=== PATIENT | male | born 1935 | race Caucasian/White ===

== ENCOUNTER 2018-05-01 12:06 | Outpatient (CLI) | payer MEDICARE, BC | END 2018-05-01 13:00 | disposition home or self-care (01) | LOC: PTMAIN 12:06 | PROVIDERS: ATTEND Otolaryngology | DX: K21.9 Gastro-esophageal reflux disease without esophagitis (principal) | CPT/HCPCS: 31579 ==

== ENCOUNTER → 2020-06-17 | Outpatient (CLI) | payer MEDICARE, BC ==
--- NOTE | 2020-06-17 15:32 | CT ---
EXAMINATION TYPE: CT chest wo con DATE OF EXAM: 06/17/2020 COMPARISON: Chest x-ray 06/08/2020 HISTORY: SOB CT DLP: 498 mGycm. Automated Exposure Control for Dose Reduction was Utilized. TECHNIQUE: CT scan of the thorax is performed without IV contrast. FINDINGS: LUNGS: There is extreme volume loss on the right with the right perihilar consolidation extending to the pleural space and small effusion with basilar consolidation. Pleural-based thickening is also not ed on the left. There is no pneumothorax. Subpleural nodularity in the right upper lobe measuring 5 m m or less.. MEDIASTINUM: Lack of IV contrast is noted to limit evaluation for mediastinal and especially hilar ad enopathy. There are no definitive greater than 1 cm hilar or mediastinal lymph nodes. Atherosclerotic change aorta. Calcification of the aortic valve and coronary artery calcification with cardiomegaly noted.. OTHER: Hypertrophic and degenerative change of the spine. There is a gallstone. There is a fusion of a midthoracic vertebral segments which may be congenital. Sternotomy changes are noted. Renal cortica l thinning suggest chronic medical renal disease. There is gynecomastia. IMPRESSION: 1. There is significant volume loss on the right with midline shift from right to left correlate clin ically for any previous surgical intervention. Subpleural nodularity measuring 5 mm or less is too sm all to characterize. There is abnormal soft tissue attenuation extending from the right hilum into th e right pleural space with areas of consolidation and small effusion which may be postoperative and p ostinflammatory rather than neoplastic, correlate clinically. 2. Cholelithiasis. 3. Cardiomegaly with severe coronary artery calcification
--- NOTE | 2020-06-18 09:36 | ECHOF ---
Referral Reason:R06.02 MEASUREMENTS -------- HEIGHT: 170.2 cm WEIGHT: 73.5 kg BP: 125/63 RVIDd: 3.3 cm (< 3.3) IVSd: 1.6 cm (0.6 - 1.1) LVIDd: 3.9 cm (3.9 - 5.3) LVPWd: 1.5 cm (0.6 - 1.1) IVSs: 1.6 cm LVIDs: 3.0 cm LVPWs: 1.9 cm LA Diam: 3.4 cm (2.7 - 3.8) Ao Diam: 2.5 cm (2.0 - 3.7) AV Cusp: 1.4 cm (1.5 - 2.6) MV EXCURSION: 7.289 mm (> 18.000) MV EF SLOPE: 29 mm/s (70 - 150) EPSS: 2.5 cm MV E Pool: 1.09 m/s MV DecT: 235 ms MV A Pool: 1.21 m/s MV E/A Ratio: 0.90 AV maxP.55 mmHg AV meanP.77 mmHg RAP: 5.00 mmHg RVSP: 18.87 mmHg FINDINGS -------- Sinus rhythm. This was a technically difficult study with suboptimal views. The left ventricular size is normal. There is moderate concentric left ventricular hypertrophy. O verall left ventricular systolic function is normal with, an EF between 60 - 65 %. The right ventricle is mildly enlarged. Normal LA size by volume 22+/-6 ml/m2. The right atrium is normal in size. 3 ml of Lumason was utilized for enhancement of images. Interatrial and interventricular septum intact. Peak/mean gradient across the Aortic Valve is 20.55mmHg / 13.77mmHg. Normally functioning bioprosth etic valve. Mild mitral annular calcification present. Mild tricuspid regurgitation present. Right ventricular systolic pressure is normal at < 35 mmHg. There is no pulmonic regurgitation present. The aortic root size is normal. Normal inferior vena cava with normal inspiratory collapse consistent with estimated right atrial pre ssure of 5 mmHg. There is no pericardial effusion. CONCLUSIONS -------- 1. Sinus rhythm. 2. This was a technically difficult study with suboptimal views. 3. The left ventricular size is normal. 4. There is moderate concentric left ventricular hypertrophy. 5. Overall left ventricular systolic function is normal with, an EF between 60 - 65 %. 6. The right ventricle is mildly enlarged. 7. 3 ml of Lumason was utilized for enhancement of images. 8. Peak/mean gradient across the Aortic Valve is 20.55mmHg / 13.77mmHg. 9. Normally functioning bioprosthetic valve. 10. Mild mitral annular calcification present. 11. Mild tricuspid regurgitation present. 12. Right ventricular systolic pressure is normal at < 35 mmHg. 13. There is no pulmonic regurgitation present. 14. There is no pericardial effusion. COMMUNICATION ENGINEER: Scarlet Worthy RDCS
== END | disposition home or self-care (01) ==
LOC: RADECHMAIN 14:50
PROVIDERS: ATTEND Internal Medicine
DX: R91.8 Other nonspecific abnormal finding of lung field (principal); M79.89 Other specified soft tissue disorders; I51.7 Cardiomegaly; I25.10 Atherosclerotic heart disease of native coronary artery without angina pectoris
CPT/HCPCS: 71250; C8929; Q9950; 93306

== ENCOUNTER 2021-05-18 14:52 | Observation (INO) | payer MEDICARE, BC ==
[2021-05-18] MEDS ORDERED: ALBUTEROL HFA INHALER INHALATION STA (15:43)
[2021-05-18] MEDS ORDERED: predniSONE 20 MG TAB PO STA (15:43)
[2021-05-18 16:13] LABS: Albumin 3.9 g/dL (3.5-5.0); Calcium 9.2 mg/dL (8.4-10.2); Total Bilirubin 0.5 mg/dL (0.2-1.3); Total Protein 6.6 g/dL (6.3-8.2)
--- NOTE | 2021-05-18 16:21 | XR ---
EXAMINATION TYPE: XR chest 1V portable DATE OF EXAM: 05/18/2021 COMPARISON: CTA chest 06/17/2020 INDICATION: Short of breath TECHNIQUE: Single frontal view of the chest is obtained. FINDINGS: The heart size is enlarged. The pulmonary vasculature is normal. Small to moderate right pleural fluid collection is present. Some thickening along the right pleural margin is not excluded. Findings appear similar to CT findings. Pleural fluid is increased over the i nterval. Sternotomy wires are in the midline. The patient is rotated to the left. Chronic rotator cuff tears a re likely present bilaterally. IMPRESSION: 1. Small to moderate pleural effusion increased from comparison CT.
[2021-05-18 16:38] LABS: HCT 34.1 % (39.0-53.0); HGB 11.1 gm/dL (13.0-17.5); MCH 30.5 pg (25.0-35.0); MCHC 32.6 g/dL (31.0-37.0); MCV 93.7 fL (80.0-100.0); Mean Platelet Volume 8.6; Platelet Count 216 k/uL (150-450); RBC 3.64 m/uL (4.30-5.90); RDW 14.3 % (11.5-15.5)
[2021-05-18] MEDS ORDERED: HEPARIN SODIUM 1,000 UN/ML (10ML VL) IV PRN (17:01)
[2021-05-18] MEDS ORDERED: HEPARIN SODIUM 1,000 UN/ML (10ML VL) IV ONE (17:01)
[2021-05-18] MEDS ORDERED: HEPARIN SOD,PORK IN 0.45% NACL 25,000 UNIT in 0.45% NACL 1 250ML.BAG IV SCH (17:15)
[2021-05-18] MEDS ORDERED: NALOXONE 0.4 MG/ML 1 ML VIAL IV PRN (17:24)
[2021-05-18] MEDS ORDERED: ONDANSETRON 4 MG/2 ML VIAL IVP PRN (17:36)
[2021-05-18] MEDS ORDERED: ACETAMINOPHEN TAB 325 MG TAB PO PRN (17:36)
--- NOTE | 2021-05-18 17:56 | ED ---
SOB HPI - General Chief Complaint: Shortness of Breath Stated Complaint: KORIN Time Seen by Provider: 05/18/21 15:32 Source: patient Mode of arrival: wheelchair Limitations: no limitations - History of Present Illness Initial Comments: Lung cancer status post radiation, COPD, chronic respiratory failure on 1-2 L nasal cannula at home, cardiac stents, heart cath, ND who presents emergency Department complaining of acute onset of shortness of breath at home. Patient states he felt more short of breath at home earlier today without much chest pain but did have some mild chest discomfort. He checked his pulse ox and it was in the high 80%'s. He switches oxygen to his portable machine and he was brought to the emergency department for evaluation. He states that on the way to the hospital he rechecked his pulse ox and it was normal, and 98%. States he felt better and his chest discomfort resolved. He states that he believes his home action tank is malfunctioning us and is making strange noises at home. He called to get the tank evaluated and came to the emergency department to be evaluated. He denies any nausea, vomiting, headache, abdominal pain, blurry vision, weakness. He denies any fevers, chills, cough. He received his COVID 19 vaccination, last dose in January. He has no other acute complaints at this time. He describes his chest discomfort that he experienced earlier as just generalized discomfort that has since resolved. He denies any history of blood clots. He is not on blood thinners. - Related Data Home Medications Medication Instructions Recorded Confirmed Aspirin EC [Ecotrin Low Dose] 81 mg PO DAILY 05/18/21 05/18/21 Diazepam [Valium] 5 mg PO BID PRN 05/18/21 05/18/21 Ferrous Sulfate [Feosol] 325 mg PO DAILY 05/18/21 05/18/21 Fluticasone/Vilanterol [Breo 1 puff INHALATION RT-DAILY 05/18/21 05/18/21 Ellipta 200-25 Mcg INH] Furosemide [Lasix] 40 mg PO Q48H 05/18/21 05/18/21 Magnesium Oxide 400 mg PO BID 05/18/21 05/18/21 Metoprolol Tartrate [Lopressor] 25 mg PO BID 05/18/21 05/18/21 NIFEdipine [NIFEdipine ER] 30 mg PO DAILY 05/18/21 05/18/21 Pantoprazole [Protonix] 40 mg PO DAILY 05/18/21 05/18/21 Potassium Chloride ER [K-Dur 10] 10 meq PO DAILY 05/18/21 05/18/21 Prevagen 1 tab PO DAILY 05/18/21 05/18/21 Tiotropium [place] [Spiriva 1 puff INHALATION RT-BID 05/18/21 05/18/21 Respimat] Allergies Allergy/AdvReac Type Severity Reaction Status Date / Time No Known Allergies Allergy Verified 05/18/21 16:25 Review of Systems ROS Statement: Those systems with pertinent positive or pertinent negative responses have been documented in the HPI. Review of Systems: CONST: Denies fever EYES: Denies blurry vision ENT: Denies nasal congestion C/V: Denies Chest pain RESP: Endorses chronic shortness of breath, slightly worse today. GI: Denies abdominal pain : Denies dysuria SKIN: Denies rash. MSK: Denies joint pain. NEURO: Denies headache ROS Other: All systems not noted in ROS Statement are negative. Past Medical History Past Medical History: Coronary Artery Disease (CAD), COPD, Hypertension, Myocardial Infarction (ND) Additional Past Medical History / Comment(s): covid 12/15/20 History of Any Multi-Drug Resistant Organisms: None Reported Past Surgical History: Back Surgery, Cardiac Valve Replacement, Heart Catheterization, Orthopedic Surgery Additional Past Surgical History / Comment(s): cataracts Past Psychological History: Anxiety Smoking Status: Never smoker Past Alcohol Use History: None Reported Past Drug Use History: None Reported General Exam - General Exam Comments Initial Comments: Constitutional: Blood pressure was 109/56, pulse was 88, respirations were 24, pulse oximetry was 90% on room air, 99% on 4 L nasal cannula, 96% on 1 L nasal cannula, temperature was afebrile. General: Appears in no acute distress. HEAD: Normal with no signs of head trauma. EYES: PERRLA, EOMI, conjunctiva normal, no discharge. ENT: Hearing grossly intact, normal oropharynx. RESPIRATORY: Relatively clear breath sounds bilaterally with very mild and essentially wheezing in the lower lung shaw bilaterally. No increased work of breathing. No rhonchi auscultated. C/V: Regular rate and rhythm. S1 and S2 auscultated, no edema, peripheral pulses 2+ and intact throughout ABD: Abd is soft, nontender, nondistended EXT: Normal range of motion, no obvious deformity SKIN: No rashes or lesions observed on exposed skin. NEURO: Alert and oriented 4. No focal deficits. Limitations: no limitations Course Vital Signs 05/18/21 05/18/21 05/18/21 15:09 15:40 16:44 Temperature 98.9 F Pulse Rate 88 72 Respiratory 24 18 Rate Blood Pressure 109/56 119/66 O2 Sat by Pulse 90 L 97 Oximetry 05/18/21 17:32 Temperature Pulse Rate 75 Respiratory 20 Rate Blood Pressure 118/67 O2 Sat by Pulse 95 Oximetry Procedures - [place] Protocol (Time Out) Nurse: Mamie Castillo Medical Decision Making - Medical Decision Making Based on the patient's presentation and physical exam as well as his past medical history remarkable for cardiopulmonary disease, the decision was made to obtain a cardiopulmonary workup child that is the cause of his hypoxia at home and dyspnea that is since improved. Patient currently is asymptomatic except for mild and actively wheezing. Therefore we will obtain prescribed for studies including troponin, EKG, chest x-ray. Patient will be placed on continuous cardiac monitoring. COVID-19 swab will be obtained. We will treat his mild COPD exacerbation with by mouth prednisone 60 mg 1 time only as well as an albuterol inhaler with spacer. Patient will be continued on his 1 L nasal cannula which is on dose. He was in agreement with this plan. Patient's EKG showed no signs concerning for acute ischemia. Patient's chest x- ray showed no acute cardiopulmonary etiology. Laboratory studies were remarkable for a normocytic anemia with a hemoglobin of 11.1. Patient has an elevated bicarb the setting of chronic respiratory failure at 33. Patient's troponin is elevated to 0.073. This is likely a type II NSTEMI. Reevaluation come patient states he still has no chest pain. He is feeling improved. However I did explain that due to his left wrist studies and concerned regarding the stress on his heart and I would like to admit him to the hospital for cardiology to evaluate him. He was in agreement this plan. I spoke with cardiology on-call, Dr. Hale requested that we admit the patient to the third floor, start patient on heparin for his NSTEMI, and order an echo with serial troponins. I performed all these tasks. I spoke with the patient's PCP, Dr. Hall, who requested that we admit the patient under sounds, Dr. Valderrama, who I also spoke with and agreed to the admission. Patient was therefore admitted in serious condition. - Lab Data Result diagrams: 05/18/21 15:49 05/18/21 15:49 Lab Results 05/18/21 05/18/21 05/18/21 Range/Units 15:49 15:49 15:49 WBC 6.4 (3.8-10.6) k/uL RBC 3.64 L (4.30-5.90) m/uL Hgb 11.1 L (13.0-17.5) gm/dL Hct 34.1 L (39.0-53.0) % MCV 93.7 (80.0-100.0) fL MCH 30.5 (25.0-35.0) pg MCHC 32.6 (31.0-37.0) g/dL RDW 14.3 (11.5-15.5) % Plt Count 216 (150-450) k/uL MPV 8.6 Sodium 139 (137-145) mmol/L Potassium 5.0 (3.5-5.1) mmol/L Chloride 101 (98-107) mmol/L Carbon Dioxide 33 H (22-30) mmol/L Anion Gap 5 mmol/L BUN 38 H (9-20) mg/dL Creatinine 0.91 (0.66-1.25) mg/dL Est GFR (CKD-EPI)AfAm 88 (>60 ml/min/1.73 sqM) Est GFR (CKD-EPI)NonAf 76 (>60 ml/min/1.73 sqM) Glucose 112 H (74-99) mg/dL Calcium 9.2 (8.4-10.2) mg/dL Total Bilirubin 0.5 (0.2-1.3) mg/dL AST 26 (17-59) U/L ALT 14 (4-49) U/L Alkaline Phosphatase 70 (38-126) U/L Troponin I 0.073 H* (0.000-0.034) ng/mL Total Protein 6.6 (6.3-8.2) g/dL Albumin 3.9 (3.5-5.0) g/dL - EKG Data -: EKG Interpreted by Me EKG Comments: 12-lead Electrocardiogram Interpretation Note EKG was reviewed and interpreted by myself. 12-lead ECG performed at 1524 is interpreted by me as revealing normal sinus rhythm at a rate of 77 beats per minute. [place] is normal. [place] interval was 194 ms, QRS duration 70 ms, QTc is 434 ms.. There were no ST or T wave abnormalities to suggest myocardial ischemia or injury. R wave progression across the precordium was satisfactory. By my interpretation this EKG is non-diagnostic for acute ischemia. Disposition Clinical Impression: NSTEMI (non-ST elevated myocardial infarction), COPD exacerbation, Acute and chronic respiratory failure Disposition: ADMITTED IP TO THIS HOSP Condition: Serious Referrals: Jason Hidalgo MD [Primary Care Provider] - 1-2 days Decision to Admit Reason: Admit from EC
[2021-05-18 18:36] LABS: HCT 36.1 % (39.0-53.0); HGB 11.2 gm/dL (13.0-17.5); Hypochromasia Slight; MCH 29.5 pg (25.0-35.0); Mean Platelet Volume 7.2; Platelet Count 244 k/uL (150-450); RBC 3.79 m/uL (4.30-5.90); RDW 14.3 % (11.5-15.5); WBC 6.9 k/uL (3.8-10.6)
[2021-05-18 18:53] LABS: Partial Thromboplastin Time 24.7 sec (22.0-30.0); Prothrombin Time 10.9 sec (9.0-12.0)
[2021-05-18 19:09] LABS: Band Neutrophils % 2 %; Eosinophils # (M) 0.28 k/uL (0-0.7); Lymphocytes # (M) 2.83 k/uL (1.0-4.8); Metamyelocytes # (M) 0.14 k/uL (0); Metamyelocytes % 2 %; Monocytes # (M) 0.62 k/uL (0-1.0); Neutrophils % (M) 42 %; Nucleated Red Blood Cells 0 /100 WBC (0-0); Polychromasia Present; Total Cells Counted 100
[2021-05-18 19:12] LABS: Eosinophils # (M) 0.19 k/uL (0-0.7); Lymphocytes # (M) 3.47 k/uL (1.0-4.8); Metamyelocytes # (M) 0.06 k/uL (0); Metamyelocytes % 1 %; Monocytes # (M) 0.76 k/uL (0-1.0); Neutrophils # (M) 1.83 k/uL (1.3-7.7); Neutrophils % (M) 29 %; Nucleated Red Blood Cells 1 /100 WBC (0-0); Polychromasia Present; Total Cells Counted 100; WBC 6.3 k/uL (3.8-10.6)
[2021-05-18] MEDS: METOPROLOL TARTRATE 25 MG TAB PO SCH (23:21)
--- NOTE | 2021-05-19 00:13 | P.HPIM ---
History of Present Illness H&P Date: 05/18/21 Patient is an 85-year-old male with a PMH of coronary artery disease status post multiple stents, COPD, chronic hypoxic respiratory failure 2 L nasal cannula at home, and hypertension who was brought into the emergency room by his family members due to complaints of shortness of breath and dizziness. The patient is a somewhat poor historian. The patient reports that he was in his usual state of health when he began feeling somewhat short of breath around 5 PM tonight. He also reports experiencing intermittent substernal chest discomfort. He notes that the discomfort was transient, lasting only for a few minutes at a time, sharp in nature, with no alleviating or exacerbating features. In the emergency room, evaluation was remarkable for troponin of 0.073, CO2 33, BUN 38, hemoglobin 11.1. EKG revealed normal sinus rhythm at [address]/T-wave changes noted as reviewed by me. Chest x-ray revealed small to moderate pleural effusion on the right side. The case was discussed by ER physician with cardiology microphone operator who recommended to admit the patient for non-ST elevation PR and start him on heparin infusion. Patient denied fever, cough, chills, headache. He also denied abdominal pain, nausea, vomiting, diarrhea. Denied weakness, numbness, tingling, visual disturbances. Review of systems: Pertinent positives and negatives as discussed in HPI, a complete review of systems was performed and all other systems are negative. Physical examination: General: non toxic, no distress, appears at stated age, normal weight Derm: no unusual rashes/lesions no unusual ecchymoses, warm, dry Head: atraumatic, normocephalic, symmetric Eyes: EOMI, no lid lag, anicteric sclera, pupils equal round reactive to light ENT: Nose and ears atraumatic, no thrush, no pharyngeal erythema Neck: No thyromegaly, no cervical lymphadenopathy, trachea midline, supple Mouth: no lip lesion, mucus membranes moist Cardiovascular: S1S2 reg, no murmur, positive posterior tibial pulse bilateral, no edema, capillary refill less than 2 seconds Lungs: CTA bilateral, no rhonchi, no rales , no accessory muscle use Abdominal: soft, nontender to palpation, no guarding, no appreciable organomega ly, normal bowel sounds Ext: no gross muscle atrophy, muscle strength 5 out of 5 in all 4 extremities grossly, no contractures, Neuro: CN II-XI grossly intact, light touch intact all 4 extremities, finger to nose within normal limits, Psych: Alert, oriented, appropriate affect Assessment/plan Non-ST elevation PR -Continue with heparin, aspirin -Cardiac monitoring -Cardiology consult -Trend troponin Chronic conditions: Hypertension, COPD -Continue with home meds DVT prophylaxis -Heparin infusion The patient is admitted with an anticipated les than 2 midnight stay for evaluation of NSTEMI CODE STATUS: Full Code Discussed with: Patient Anticipated discharge date: in am Anticipated discharge place: Home A total of 40 minutes was spent on the care of this complex patient more than 50% of the time was spent in counseling and care coordination. Past Medical History Past Medical History: Coronary Artery Disease (CAD), COPD, Hypertension, Myocard ial Infarction (PR) Additional Past Medical History / Comment(s): covid 12/15/20 Last Myocardial Infarction Date:: UNSURE History of Any Multi-Drug Resistant Organisms: None Reported Past Surgical History: Back Surgery, Cardiac Valve Replacement, Coronary Bypass/CABG, Heart Catheterization, Orthopedic Surgery Additional Past Surgical History / Comment(s): cataracts Past Psychological History: Anxiety Smoking Status: Never smoker Past Alcohol Use History: None Reported Past Drug Use History: None Reported - Past Family History Mother History Unknown: Yes Medications and Allergies Home Medications Medication Instructions Recorded Confirmed Type Aspirin EC [Ecotrin Low Dose] 81 mg PO DAILY 05/18/21 05/18/21 History Diazepam [Valium] 5 mg PO BID PRN 05/18/21 05/18/21 History Ferrous Sulfate [Feosol] 325 mg PO DAILY 05/18/21 05/18/21 History Fluticasone/Vilanterol [Breo 1 puff INHALATION RT-DAILY 05/18/21 05/18/21 History Ellipta 200-25 Mcg INH] Furosemide [Lasix] 40 mg PO Q48H 05/18/21 05/18/21 History Magnesium Oxide 400 mg PO BID 05/18/21 05/18/21 History Metoprolol Tartrate [Lopressor] 25 mg PO BID 05/18/21 05/18/21 History NIFEdipine [NIFEdipine ER] 30 mg PO DAILY 05/18/21 05/18/21 History Pantoprazole [Protonix] 40 mg PO DAILY 05/18/21 05/18/21 History Potassium Chloride ER [K-Dur 10] 10 meq PO DAILY 05/18/21 05/18/21 History Prevagen 1 tab PO DAILY 05/18/21 05/18/21 History Tiotropium [place] [Spiriva 1 puff INHALATION RT-BID 05/18/21 05/18/21 History Respimat] Allergies Allergy/AdvReac Type Severity Reaction Status Date / Time No Known Allergies Allergy Verified 05/18/21 16:25 Physical Exam Vitals: Vital Signs Temp Pulse Pulse Resp BP BP Pulse Ox 05/18/21 20:00 97.8 F 82 18 122/64 97 05/18/21 19:04 98.2 F 78 16 128/78 96 05/18/21 17:32 75 20 118/67 95 05/18/21 16:44 72 18 119/66 97 05/18/21 15:40 98.9 F 05/18/21 15:09 88 24 109/56 90 L Intake and Output 05/18/21 05/18/21 05/19/21 14:59 22:59 06:59 Other: Voiding Method Urinal Weight 63.049 kg Results CBC & Chem 7: 05/18/21 18:12 05/18/21 15:49 Labs: Abnormal Lab Results - Last 24 Hours (Table) 05/18/21 05/18/21 05/18/21 Range/Units 15:49 15:49 15:49 RBC 3.64 L (4.30-5.90) m/uL Hgb 11.1 L (13.0-17.5) gm/dL Hct 34.1 L (39.0-53.0) % Metamyelocytes # (Man) 0.06 H (0) k/uL Nucleated RBCs 1 H (0-0) /100 WBC APTT (22.0-30.0) sec Carbon Dioxide 33 H (22-30) mmol/L BUN 38 H (9-20) mg/dL Glucose 112 H (74-99) mg/dL Troponin I 0.073 H* (0.000-0.034) ng/mL 05/18/21 05/18/21 Range/Units 18:12 22:24 RBC 3.79 L (4.30-5.90) m/uL Hgb 11.2 L (13.0-17.5) gm/dL Hct 36.1 L (39.0-53.0) % Metamyelocytes # (Man) 0.14 H (0) k/uL Nucleated RBCs (0-0) /100 WBC APTT 39.1 H (22.0-30.0) sec Carbon Dioxide (22-30) mmol/L BUN (9-20) mg/dL Glucose (74-99) mg/dL Troponin I (0.000-0.034) ng/mL Thrombosis Risk Factor Assmnt - Choose All That Apply Any of the Below Risk Factors Present?: Yes Each Factor Represents 1 point: Abnormal pulmonary function (COPD) Each Risk Factor Represents 3 Points: Age 75 years or older Other congenital or acquired thrombophilia - If yes, enter type in comment: No Thrombosis Risk Factor Assessment Total Risk Factor Score: 4 Thrombosis Risk Factor Assessment Level: Moderate Risk
[2021-05-19 04:22] VITALS: RESP 18
[2021-05-19 06:05] LABS: HCT 35.7 % (39.0-53.0); HGB 11.5 gm/dL (13.0-17.5); MCH 30.5 pg (25.0-35.0); MCHC 32.3 g/dL (31.0-37.0); MCV 94.2 fL (80.0-100.0); Mean Platelet Volume 7.7; Platelet Count 218 k/uL (150-450); RBC 3.79 m/uL (4.30-5.90); WBC 4.9 k/uL (3.8-10.6)
[2021-05-19 06:11] LABS: Partial Thromboplastin Time 32.3 sec (22.0-30.0); Prothrombin Time 10.5 sec (9.0-12.0)
[2021-05-19] MEDS: IPRATROPIUM 0.5 MG/2.5 ML NEBU INHALATION SCH ×3 (07:40→15:18)
[2021-05-19 08:18] LABS: Albumin 3.9 g/dL (3.5-5.0); Calcium 9.1 mg/dL (8.4-10.2); Potassium 5.5 mmol/L (3.5-5.1); Total Bilirubin 0.4 mg/dL (0.2-1.3); Total Protein 6.7 g/dL (6.3-8.2)
[2021-05-19] MEDS ORDERED: RX INFO: IV CONTRAST WAS GIVEN 1 EACH MISC MISCELLANE PRN (08:22)
[2021-05-19] MEDS ORDERED: POTASSIUM CHLORIDE ER 10 MEQ TAB.ER.PRT PO SCH (09:00)
[2021-05-19] MEDS ORDERED: ATORVASTATIN 40 MG TAB PO SCH (09:00)
[2021-05-19] MEDS ORDERED: ASPIRIN 81 MG PO SCH (09:00)
[2021-05-19] MEDS ORDERED: NIFEdipine XL 30 MG TAB.ER.24 PO SCH (09:00)
[2021-05-19] MEDS ORDERED: predniSONE 20 MG TAB PO SCH (09:00)
[2021-05-19] MEDS ORDERED: HEPARIN SODIUM,PORCINE/PF 5,000 UNIT/0.5 ML SYRINGE SQ SCH (09:15)
[2021-05-19] MEDS ORDERED: SODIUM POLYSTYRENE SULFONATE 15 GM/60 ML BOTTLE PO ONE (09:15)
[2021-05-19] MEDS ORDERED: SODIUM CHLORIDE 0.9% 1,000 ML IV SCH (09:15)
[2021-05-19] MEDS: METOPROLOL TARTRATE 25 MG TAB PO SCH (09:43)
[2021-05-19 10:09] LABS: Basophils # (M) 0.05 k/uL (0-0.2); Myelocytes # (M) 0.05 k/uL (0)
[2021-05-19 10:10] LABS: Blast Cells # (M) 0.93 k/uL (0); Nucleated Red Blood Cells 0 /100 WBC (0-0)
[2021-05-19 10:11] LABS: Anisocytosis (M) Present; Poikilocytosis (M) Present
--- NOTE | 2021-05-19 11:55 | CT ---
EXAMINATION TYPE: CT chest w con DATE OF EXAM: 05/19/2021 COMPARISON: 06/17/2020 HISTORY: 85-year-old male Lung CA follow up TECHNIQUE: Contiguous axial scanning of the chest after the administration of 100 mL of Isovue 300. Coronal/sagittal reconstructions performed. CT DLP: 233.3mGycm. Automatic exposure control utilized for a dose reduction. FINDINGS: Heart is borderline enlarged without pericardial effusion. Median sternotomy wires. Prosthetic aortic valve. Post-CABG changes. Ectatic ascending aorta at 3.9 cm. Mild atherosclerotic arch calcifications with very direct takeoff of the left vertebral artery directly from the aortic arch. Large caliber to the main right and left pulmonary arteries measuring 2.8 and 2.6 cm, respectively, s uggesting underlying pulmonary hypertension. Stable scattered nonenlarged mediastinal lymph nodes measuring up to 8 mm. We demonstrated volume loss within the right hemithorax with cardia mediastinal shift towards the rig ht. Extensive nodular pleural thickening throughout the right hemithorax is relatively similar, exten ding from the right hilum to the right mid lung measuring up to 3.2 cm thick, axial image 25. An adjacent posterior right midlung pulmonary nodule at this level now measures 7 mm versus 4 mm, pre viously, axial image 25 and can be reassessed at follow-up. Masslike opacity at the posterior right base measures 5.6 cm, not significantly changed from prior ex am, axial image 39 but there is more soft tissue fullness along the anterior medial margin of the [place]a city. Stable small right effusion. Extensive areas of volume loss and consolidation persist throughout the right lung with distortion an d interstitial change. [place] left basilar atelectasis and/or fibrosis at on the left. Mild to moderate bilateral gynecomastia. Marked diffuse fold thickening throughout the stomach is similar. Cortical defect posterior upper michelle e left kidney suggests sequela of prior vascular or infectious insult. Bones: Moderate degenerative disc disease throughout with accentuated midthoracic kyphosis. IMPRESSION: 1. Relatively similar exam with diffuse nodular pleural thickening and volume loss throughout the rig ht hemithorax and small right effusion. Areas of consolidation, distortion, and volume loss are relat ively similar, except as follows: 2. A 7 mm posterior right midlung pulmonary nodule is slightly larger versus 4 mm, previously. 3. Masslike opacity posterior right base at 5.6 cm. While overall size is similar, there is increasin g soft tissue fullness along the anterior medial margin of the opacity. 4. Both of these areas should be reassessed at follow-up. 5. Marked diffuse wall thickening throughout the stomach. Correlate for gastritis.
--- NOTE | 2021-05-19 12:06 | ECHOF ---
Referral Reason:NSTEMI MEASUREMENTS -------- HEIGHT: 172.7 cm WEIGHT: 64.4 kg BP: 120/67 RVIDd: 3.6 cm (< 3.3) IVSd: 1.9 cm (0.6 - 1.1) LVIDd: 3.7 cm (3.9 - 5.3) LVPWd: 1.6 cm (0.6 - 1.1) IVSs: 2.3 cm LVIDs: 3.0 cm LVPWs: 1.9 cm LA Diam: 3.7 cm (2.7 - 3.8) LAESV Index (A-L): 27.23 ml/m Ao Diam: 3.5 cm (2.0 - 3.7) MV EXCURSION: 13.015 mm (> 18.000) MV EF SLOPE: 38 mm/s (70 - 150) EPSS: 0.9 cm MV E Pool: 1.26 m/s MV DecT: 233 ms MV A Pool: 1.21 m/s MV E/A Ratio: 1.03 AV maxP.88 mmHg AV meanP.06 mmHg RAP: 5.00 mmHg RVSP: 25.10 mmHg FINDINGS -------- Sinus rhythm. This was a technically adequate study. The left ventricular size is normal. There is severe concentric left ventricular hypertrophy. Ove rall left ventricular systolic function is normal with, an EF between 60 - 65 %. The right ventricle is mildly enlarged. Normal LA size by volume 22+/-6 ml/m2. The right atrium is normal in size. Interatrial and interventricular septum intact. Peak/mean gradient across the Aortic Valve is 14.88mmHg / 7.06mmHg. Normally functioning bioprosthe tic valve. The mitral valve leaflets are mildly thickened. Moderate mitral annular calcification present. Th ere is trace to mild mitral regurgitation. Mild tricuspid regurgitation present. Right ventricular systolic pressure is normal at < 35 mmHg. Trace/mild (physiologic) pulmonic regurgitation. The aortic root size is normal. Normal inferior vena cava with normal inspiratory collapse consistent with estimated right atrial pre ssure of 5 mmHg. There is no pericardial effusion. CONCLUSIONS -------- 1. The left ventricular size is normal. 2. There is severe concentric left ventricular hypertrophy. 3. Overall left ventricular systolic function is normal with, an EF between 60 - 65 %. 4. The right ventricle is mildly enlarged. 5. Peak/mean gradient across the Aortic Valve is 14.88mmHg / 7.06mmHg. 6. Normally functioning bioprosthetic valve. 7. The mitral valve leaflets are mildly thickened. 8. Moderate mitral annular calcification present. 9. There is trace to mild mitral regurgitation. 10. Mild tricuspid regurgitation present. 11. Trace/mild (physiologic) pulmonic regurgitation. 12. There is no pericardial effusion. SPLICING TECHNICIAN: Scarlet Worthy RDCS
--- NOTE | 2021-05-19 12:19 | P.CRDCN ---
History of Present Illness History of present illness: HISTORY OF PRESENTING ILLNESS This is a pleasant 85-year-old male past medical history significant for COPD, coronary artery disease and aortic stenosis s/p CABG and aortic valve replacement about 5 years ago at [facility]. He states he did have COVID- 19 late last year. He follows with Dr. Cline last seen in 05/2020 but didnt follow up. He is not quite sure of the details of his medical history. Poor historian. We have been asked to see in consultation for elevated troponin. Petey hubbard presents emergency department with worsening shortness of breath. He describes it as exertional. He also states he wakes up in the middle night short of breath. It has progressively been getting worse over the past few days and he states his children were concerned and wanted him to go to the hospital. He did check his pulse ox and it was in the high 80s. He also wears oxygen at home, he states his tank is making strange noises at home and possibly malfucntioining. He denies chest pain, palpitations, lightheadedness, dizziness, nausea, diaphoresis or abdominal pain. Denies fevers or chills. Denies syncope or pre- syncope. Denies history of Diabetes or stroke. Denies tobacco use or alcohol use. Patient states that for his CABG he was initially in [place], had a cardiac catheterization and bypass surgery was recommended. Patient states that he wanted to get the surgery done in [place] so he is referred to her cardiothoracic surgeon at [facility]. He also states he did have physicians overseeing his care at [facility], however he does not remember the names of these physicians. When he saw Dr. Cline in 05/2020 and echocardiogram and stress test was recommended. Patient underwent echocardiogram 06/17/2020 which revealed an EF of 60-65%, mild tricuspid regurgitation, normal functioning bioprosthetic valve. DIAGNOSTICS EKG reveals sinus rhythm, heart rate 77, no significant ST-T wave abnormalities. No prior EKG Telemetry tracings indicate sinus mechanism, no ectopy or arrhythmia noted Chest xray small to moderate pleural effusion increased from comparison CT, sternotomy wires are in the midline Laboratory reviewed, troponin trend 0.07, 0.06, 0.06, sodium 141, potassium 5.5, BUN 35, serum creatinine 1.05, proBNP 2650, COVID-19 negative REVIEW OF SYSTEMS At the time of my exam: CONSTITUTIONAL: Denies fever or chills. CARDIOVASCULAR: +shortness of breath, +PND Denies chest pain, PND or palpitations. RESPIRATORY: Denies cough. GASTROINTESTINAL: Denies abdominal pain, diarrhea, constipation, nausea or vomiting. MUSCULOSKELETAL: Denies myalgias. NEUROLOGIC: Denies numbness, tingling, headacbe or weakness. ENDOCRINE: Denies fatigue, weight change, polydipsia or polyurina. GENITOURINARY: Denies burning, hematuria or urgency with micturation. HEMATOLOGIC: Denies history of anemia or bleeding. PHYSICAL EXAMINATION Blood pressure 136/64 heart rate 72 afebrile and maintaining oxygen saturation 90% on 2 L nasal cannula CONSTITUTIONAL: No apparent distress. HEENT: Head is normocephalic. Pupils are equal, round. Sclerae anicteric. Mucous membranes of the mouth are moist. No JVD. No carotid bruit. CHEST EXAMINATION: Lungs are diminished in the bases to auscultation. No chest wall tenderness is noted on palpation or with deep breathing. HEART EXAMINATION: Regular rate and rhythm. S1, S2 heard. ABDOMEN: Soft, nontender. Positive bowel sounds. EXTREMITIES: 2+ peripheral pulses, no lower extremity edema and no calf tenderness. SKIN: intact NEUROLOGIC EXAMINATION: Patient is awake, alert and oriented x3. Poor historian ASSESSMENT Elevated troponin not indicative of acute coronary syndrome, no evidence of ischemia noted on EKG. Most likely supply and demand mismatch Coronary Artery Disease s/p CABG (unknown details) History of aortic stenosis s/p aortic valve replacement (unknown details) COPD Hypertension PLAN ProBNP ordered- elevated at 2650 2D echocardiogram results indicate EF of 60-65%, RV is mildly enlarged, normally functioning bioprosthetic valve, trace to mild mitral regurgitation, mild tricuspid regurgitation, no pericardial effusion. Stop heparin drip Continue aspirin, statin, metoprolol tartrate Continue home nifedipine From cardiology perspective, no further changes or testing at this time. We will sign off at this time. Please reach out with any further questions or concerns. Follow up with Dr. Cline on discharge Thank you kindly for this consultation. Nurse Practitioner note has been reviewed, I agree with a documented findings and plan of care. Patient was seen and examined. Past Medical History Past Medical History: Coronary Artery Disease (CAD), COPD, Hypertension, Myocardial Infarction ([place]) Additional Past Medical History / Comment(s): covid 12/15/20 Last Myocardial Infarction Date:: UNSURE History of Any Multi-Drug Resistant Organisms: None Reported Past Surgical History: Back Surgery, Cardiac Valve Replacement, Coronary Bypass/CABG, Heart Catheterization, Orthopedic Surgery Additional Past Surgical History / Comment(s): cataracts Past Psychological History: Anxiety Smoking Status: Never smoker Past Alcohol Use History: None Reported Past Drug Use History: None Reported - Past Family History Mother History Unknown: Yes Medications and Allergies Home Medications Medication Instructions Recorded Confirmed Type Aspirin EC [Ecotrin Low Dose] 81 mg PO DAILY 05/18/21 05/18/21 History Diazepam [Valium] 5 mg PO BID PRN 05/18/21 05/18/21 History Ferrous Sulfate [Feosol] 325 mg PO DAILY 05/18/21 05/18/21 History Fluticasone/Vilanterol [Breo 1 puff INHALATION RT-DAILY 05/18/21 05/18/21 History Ellipta 200-25 Mcg INH] Furosemide [Lasix] 40 mg PO Q48H 05/18/21 05/18/21 History Magnesium Oxide 400 mg PO BID 05/18/21 05/18/21 History Metoprolol Tartrate [Lopressor] 25 mg PO BID 05/18/21 05/18/21 History NIFEdipine [NIFEdipine ER] 30 mg PO DAILY 05/18/21 05/18/21 History Pantoprazole [Protonix] 40 mg PO DAILY 05/18/21 05/18/21 History Potassium Chloride ER [K-Dur 10] 10 meq PO DAILY 05/18/21 05/18/21 History Prevagen 1 tab PO DAILY 05/18/21 05/18/21 History Tiotropium Republic [Spiriva 1 puff INHALATION RT-BID 05/18/21 05/18/21 History Respimat] Allergies Allergy/AdvReac Type Severity Reaction Status Date / Time No Known Allergies Allergy Verified 05/18/21 16:25 Physical Exam Vitals: Vital Signs Temp Pulse Pulse Resp BP BP Pulse Ox 05/19/21 07:48 67 05/19/21 07:40 64 05/19/21 04:00 97.6 F 80 18 120/67 97 05/19/21 01:02 75 17 05/19/21 00:00 98.0 F 75 17 131/76 98 05/18/21 20:00 97.8 F 82 18 122/64 97 05/18/21 19:04 98.2 F 78 16 128/78 96 05/18/21 17:32 75 20 118/67 95 05/18/21 16:44 72 18 119/66 97 05/18/21 15:40 98.9 F 05/18/21 15:09 88 24 109/56 90 L Intake and Output 05/18/21 05/19/21 05/19/21 22:59 06:59 14:59 Intake Total 105.487 0 Output Total 900 Balance -794.513 0 Intake: IV 64 Heparin Sod,Pork in 0.45% 64 NaCl 25,000 unit In 0.45 % NaCl 1 250ml.bag @ 12 UNITS/KG/HR 7.566 mls/hr IV .Q24H [facility] Rx#: [id number] Intake, IV Titration 41.487 Amount Heparin Sod,Pork in 0.45% 41.487 NaCl 25,000 unit In 0.45 % NaCl 1 250ml.bag @ 12 UNITS/KG/HR 7.566 mls/hr IV .Q24H [facility] Rx#: [id number] Oral 0 Output: Urine 500 Straight 400 Post Void Residual 400 Other: Voiding Method Urinal Urinal # Voids 2 Weight 63.049 kg 64.6 kg Results 05/19/21 04:52 05/19/21 04:52 Cardiac Enzymes 05/18/21 05/18/21 05/18/21 Range/Units 15:49 15:49 22:24 AST 26 (17-59) U/L Troponin I 0.073 H* 0.066 H* (0.000-0.034) ng/mL 05/19/21 Range/Units 02:05 AST (17-59) U/L Troponin I 0.063 H* (0.000-0.034) ng/mL Coagulation 05/18/21 05/18/21 05/19/21 Range/Units 18:12 22:24 04:52 PT 10.9 10.5 (9.0-12.0) sec APTT 24.7 39.1 H 32.3 H (22.0-30.0) sec CBC 05/18/21 05/18/21 05/19/21 Range/Units 15:49 18:12 04:52 WBC 6.3 6.9 4.9 (3.8-10.6) k/uL RBC 3.64 L 3.79 L 3.79 L (4.30-5.90) m/uL Hgb 11.1 L 11.2 L 11.5 L (13.0-17.5) gm/dL Hct 34.1 L 36.1 L 35.7 L (39.0-53.0) % Plt Count 216 244 218 (150-450) k/uL Comprehensive Metabolic Panel 05/18/21 Range/Units 15:49 Sodium 139 (137-145) mmol/L Potassium 5.0 (3.5-5.1) mmol/L Chloride 101 (98-107) mmol/L Carbon Dioxide 33 H (22-30) mmol/L BUN 38 H (9-20) mg/dL Creatinine 0.91 (0.66-1.25) mg/dL Glucose 112 H (74-99) mg/dL Calcium 9.2 (8.4-10.2) mg/dL AST 26 (17-59) U/L ALT 14 (4-49) U/L Alkaline Phosphatase 70 (38-126) U/L Total Protein 6.6 (6.3-8.2) g/dL Albumin 3.9 (3.5-5.0) g/dL Current Medications Generic Name Dose Route Start Last Admin Trade Name Freq PRN Reason Stop Dose Admin Acetaminophen 650 mg 05/18/21 17:36 Acetaminophen Tab 325 Mg Tab PO Q6HR PRN Mild Pain or Fever > 100.5 Aspirin 81 mg 05/19/21 09:00 Aspirin 81 Mg PO DAILY [facility] Heparin Sodium (Porcine) 0 unit 05/18/21 17:01 Heparin Sodium 1,000 Un/Ml (10ml Vl) IV PER PROTOCOL PRN Low PTT Protocol Heparin Sodium/Sodium Chloride 250 mls @ 7.566 mls/hr 05/18/21 17:15 05/18/21 23:22 25,000 unit/ Sodium Chloride IV 14 units/kg/hr .Q24H [facility] 8.827 mls/hr Titration Protocol 12 UNITS/KG/HR Ipratropium Republic 0.5 mg 05/19/21 08:00 05/19/21 07:40 Ipratropium 0.5 Mg/2.5 Ml Nebu INHALATION 0.5 mg RT-QID [facility] Administration Metoprolol Tartrate 25 mg 05/18/21 23:15 05/18/21 23:21 Metoprolol Tartrate 25 Mg Tab PO 25 mg BID [facility] Administration Naloxone HCl 0.2 mg 05/18/21 17:24 Naloxone 0.4 Mg/Ml 1 Ml Vial IV Q2M PRN Opioid Reversal Nifedipine 30 mg 05/19/21 09:00 Nifedipine Xl 30 Mg Tab.Er.24 PO DAILY [facility] Ondansetron HCl 4 mg 05/18/21 17:36 Ondansetron 4 Mg/2 Ml Vial IVP Q8HR PRN Nausea And Vomiting Potassium Chloride 10 meq 05/19/21 09:00 Potassium Chloride Er 10 Meq Tab.Er.Prt PO DAILY [facility] Prednisone 40 mg 05/19/21 09:00 Prednisone 20 Mg Tab PO 05/22/21 10:00 DAILY [facility] Intake and Output 05/18/21 05/19/21 05/19/21 22:59 06:59 14:59 Intake Total 105.487 0 Output Total 900 Balance -794.513 0 Intake: IV 64 Heparin Sod,Pork in 0.45% 64 NaCl 25,000 unit In 0.45 % NaCl 1 250ml.bag @ 12 UNITS/KG/HR 7.566 mls/hr IV .Q24H [facility] Rx#: [id number] Intake, IV Titration 41.487 Amount Heparin Sod,Pork in 0.45% 41.487 NaCl 25,000 unit In 0.45 % NaCl 1 250ml.bag @ 12 UNITS/KG/HR 7.566 mls/hr IV .Q24H [facility] Rx#: [id number] Oral 0 Output: Urine 500 Straight 400 Post Void Residual 400 Other: Voiding Method Urinal Urinal # Voids 2 Weight 63.049 kg 64.6 kg 05/19/21 04:52 05/18/21 15:49
--- NOTE | 2021-05-19 12:58 | P.CNPUL ---
History of Present Illness Consult date: 05/19/21 Requesting physician: Parviz Valderrama Reason for consult: dyspnea, COPD Chief complaint: Shortness of breath, dizziness History of present illness: This is a very pleasant 85-year-old gentleman with a known history of lung cancer diagnosed in 2017 status post radiation treatment through [facility], chronic hypoxic respiratory failure on home oxygen at 1-2 L/m per nasal cannula, hypertension, coronary artery disease with previous coronary artery bypass grafting, valve replacement, anxiety. He is somewhat of a poor historian. He was brought in by his family to the emergency room with complaints of shortness of breath. The patient himself is a poor historian and difficult to get much information. He actually states he is not sure why he is here and is requesting to go home. Is also some concern regarding his oxygen at home stating it was in the 80s he switched his portable tank and it was up to 98%. Even in the ER he was feeling much better and his chest discomfort had resolved. A chest x-ray revealed a small to moderate pleural effusions and we are consulted for the same. He is seen today in consultation on the selective care unit. He is currently sitting up in bed. Awake and alert in no acute distress. Denies any chest pain currently. Denies any shortness of breath, cough or congestion. No fever, chills or night sweats. Maintaining O2 saturation at 98% on 2 L/m per nasal cannula. He is afebrile. Hemodynamically stable. White count 4.9. Hemoglobin 11.5. INR 1.0. Sodium 141. Potassium 5.5. Bicarb 36. Creatinine 1.05. Glucose 175. Troponin 0.066, 0.063. ProBNP 2650. Benavidez virus not detected. He's been initiated on prednisone, albuterol. Heparin for DVT prophylaxis. Echocardiogram reveals preserved left ventricular systolic function with ejection fraction 60-65%. Normal functioning bioprosthetic aortic valve. Computed tomography scan of the chest revealed diffuse nodular pleural thickening and volume loss throughout the right hemithorax and small right effusion. Areas of consolidation, distortion and volume loss and relatively similar compared to previous CAT scan in May 2020. Right midlung pulmonary nodule at 7 mm. Masslike opacity in the posterior right base at 5.6 cm. Overall size is smaller compared to previous. Review of Systems REVIEW OF SYSTEMS: CONSTITUTIONAL: Denies any recent significant weight loss or weight gain. EYES: Denies change in vision. EARS, NOSE, MOUTH, THROAT: Denies headaches, denies sore throat. CARDIOVASCULAR: Positive for chest pain, no palpitations or syncopal episodes. RESPIRATORY: Positive for shortness of breath, no cough, congestion or hemoptysis. GASTROINTESTINAL: Denies change in appetite, denies abdominal pain GENITOURINARY: Denies hematuria, denies infections. MUSKULOSKELETAL: Denies pain, denies swelling. INTEGUMENTARY: Denies rash, denies eczema. NEUROLOGICAL: Denies recent memory loss, no recent seizure activity. PSYCHIATRIC: Denies anxiety, denies depression. HEMATOLOGIC/LYMPHATIC: Denies anemia, denies enlarged lymph nodes. Past Medical History Past Medical History: Coronary Artery Disease (CAD), COPD, Hypertension, Myocardial Infarction ([place]) Additional Past Medical History / Comment(s): covid 12/15/20 Last Myocardial Infarction Date:: UNSURE History of Any Multi-Drug Resistant Organisms: None Reported Past Surgical History: Back Surgery, Cardiac Valve Replacement, Coronary Bypass/CABG, Heart Catheterization, Orthopedic Surgery Additional Past Surgical History / Comment(s): cataracts Past Psychological History: Anxiety Smoking Status: Never smoker Past Alcohol Use History: None Reported Past Drug Use History: None Reported - Past Family History Mother History Unknown: Yes Medications and Allergies Home Medications Medication Instructions Recorded Confirmed Type Aspirin EC [Ecotrin Low Dose] 81 mg PO DAILY 05/18/21 05/18/21 History Diazepam [Valium] 5 mg PO BID PRN 05/18/21 05/18/21 History Ferrous Sulfate [Feosol] 325 mg PO DAILY 05/18/21 05/18/21 History Fluticasone/Vilanterol [Breo 1 puff INHALATION RT-DAILY 05/18/21 05/18/21 Hist ory Ellipta 200-25 Mcg INH] Furosemide [Lasix] 40 mg PO Q48H 05/18/21 05/18/21 History Magnesium Oxide 400 mg PO BID 05/18/21 05/18/21 History Metoprolol Tartrate [Lopressor] 25 mg PO BID 05/18/21 05/18/21 History NIFEdipine [NIFEdipine ER] 30 mg PO DAILY 05/18/21 05/18/21 History Pantoprazole [Protonix] 40 mg PO DAILY 05/18/21 05/18/21 History Potassium Chloride ER [K-Dur 10] 10 meq PO DAILY 05/18/21 05/18/21 History Prevagen 1 tab PO DAILY 05/18/21 05/18/21 History Tiotropium [place] [Spiriva 1 puff INHALATION RT-BID 05/18/21 05/18/21 History Respimat] Allergies Allergy/AdvReac Type Severity Reaction Status Date / Time No Known Allergies Allergy Verified 05/18/21 16:25 Physical Exam Vitals: Vital Signs Temp Pulse Pulse Resp BP BP Pulse Ox 05/19/21 11:52 67 05/19/21 11:44 68 05/19/21 08:00 97.8 F 72 18 136/64 98 05/19/21 07:48 67 05/19/21 07:40 64 05/19/21 04:00 97.6 F 80 18 120/67 97 05/19/21 01:02 75 17 05/19/21 00:00 98.0 F 75 17 131/76 98 05/18/21 20:00 97.8 F 82 18 122/64 97 05/18/21 19:04 98.2 F 78 16 128/78 96 05/18/21 17:32 75 20 118/67 95 05/18/21 16:44 72 18 119/66 97 05/18/21 15:40 98.9 F 05/18/21 15:09 88 24 109/56 90 L Intake and Output 05/18/21 05/19/21 05/19/21 22:59 06:59 14:59 Intake Total 105.487 109.153 Output Total 900 Balance -794.513 109.153 Intake: IV 64 20 Heparin Sod,Pork in 0.45% 64 NaCl 25,000 unit In 0.45 % NaCl 1 250ml.bag @ 12 UNITS/KG/HR 7.566 mls/hr IV .Q24H [facility] Rx#: [id number] Invasive Line 2 20 Intake, IV Titration 41.487 89.153 Amount Heparin Sod,Pork in 0.45% 41.487 89.153 NaCl 25,000 unit In 0.45 % NaCl 1 250ml.bag @ 12 UNITS/KG/HR 7.566 mls/hr IV .Q24H [facility] Rx#: [id number] Oral 0 Output: Urine 500 Straight 400 Post Void Residual 400 Other: Voiding Method Urinal Urinal Urinal # Voids 2 Weight 63.049 kg 64.6 kg GENERAL EXAM: Alert, pleasant 85-year-old gentleman, on 2 L nasal cannula, comfortable in no apparent distress. HEAD: Normocephalic. EYES: Normal reaction of pupils, equal size. NOSE: Clear with pink turbinates. THROAT: No erythema or exudates. NECK: No masses, no JVD. CHEST: No chest wall deformity. LUNGS: Equal air entry with crackles in the right lung base. CVS: S1 and S2 normal with no audible murmur, regular rhythm. ABDOMEN: No hepatosplenomegaly, normal bowel sounds, no guarding or rigidity. SPINE: No scoliosis or deformity SKIN: No rashes CENTRAL NERVOUS SYSTEM: No focal deficits, tone is normal in all 4 extremities. EXTREMITIES: There is no peripheral edema. No clubbing, no cyanosis. Peripheral pulses are intact. Results - Laboratory Findings CBC and BMP: 05/19/21 04:52 05/19/21 04:52 PT/INR, D-dimer PT 10.5 sec (9.0-12.0) 05/19/21 04:52 INR 1.0 (<1.2) 05/19/21 04:52 Abnormal lab findings: Abnormal Labs 05/18/21 05/18/21 05/18/21 15:49 15:49 15:49 RBC 3.64 L Hgb 11.1 L Hct 34.1 L Metamyelocytes # (Man) 0.06 H Nucleated RBCs 1 H APTT Potassium Carbon Dioxide 33 H BUN 38 H Glucose 112 H Troponin I 0.073 H* 05/18/21 05/18/21 05/18/21 18:12 22:24 22:24 RBC 3.79 L Hgb 11.2 L Hct 36.1 L Metamyelocytes # (Man) 0.14 H Nucleated RBCs APTT 39.1 H Potassium Carbon Dioxide BUN Glucose Troponin I 0.066 H* 05/19/21 05/19/21 05/19/21 02:05 04:52 04:52 RBC 3.79 L Hgb 11.5 L Hct 35.7 L Metamyelocytes # (Man) Nucleated RBCs APTT 32.3 H Potassium Carbon Dioxide BUN Glucose Troponin I 0.063 H* 05/19/21 04:52 RBC Hgb Hct Metamyelocytes # (Man) Nucleated RBCs APTT Potassium 5.5 H Carbon Dioxide 36 H BUN 35 H Glucose 175 H Troponin I - Diagnostic Findings Chest x-ray: image reviewed CT scan - chest: image reviewed Assessment and Plan Assessment: 1 Acute on chronic hypoxemic respiratory failure secondary to right pleural effusion and COPD exacerbation 2 History of non-small cell lung cancer involving the right lung diagnosed and treated at [facility] status post radiation 3 Post radiation scarring and fibrosis 4 Chronic hypoxemic respiratory failure secondary to above 5 Masslike opacity in the posterior right lung base at 5.6 cm. With increasing soft tissue fullness along the anterior medial margin of the opacity, similar compared to previous in May 2020 6 History of coronary artery disease with previous coronary artery bypass grafting 7 History of valvular heart disease with previous bioprosthetic aortic valve replacement 9 History of hypertension 10 Former smoker Plan: The patient was seen and evaluated by Dr. Hidalgo Chest x-ray, CAT scan, labs reviewed Currently stable from the pulmonary standpoint Continue home oxygen, prednisone and bronchodilators To keep his appointment at [facility] as scheduled I, the cosigning physician, performed a history & physical examination of the patient. Lungs sounds with crackles in the right lung base, diminished Maintaining good O2 saturations in the 90s on 2 L/m per nasal cannula. I discussed the assessment and plan of care with my nurse practitioner, Dipika Reina. I attest to the above consult patient as dictated by her. Time with Patient: Greater than 30
[2021-05-19 13:22] LABS: Neutrophils # (M) 2.25 k/uL (1.3-7.7); Neutrophils % (M) 46 %; Total Cells Counted 200
--- NOTE | 2021-05-19 13:46 | P.DS ---
Providers Date of admission: 05/18/21 17:24 Expected date of discharge: 05/19/21 Attending physician: Parviz Valderrama Consults: 05/18/21 17:36 Consult Physician Stat Consulting Provider: Sonia Hale Consult Reason/Comments: NSTEMI Do you want consulting provider notified?: Already Contacted Primary care physician: Jason Rocky [facility] Course: This is a 85-year-old male with very complex past medical history noted below that presented to the emergency room with worsening shortness of breath, low oxygen at home, and chest discomfort. Patient was evaluated in the ER and placed on observation for further management of his medical problems noted below. 1. Troponin elevation: Secondary to supply/demand mismatch. ACS ruled out. Twelve-lead EKG showed no acute ischemic changes. Patient was seen and evaluated by cardiology. Echocardiogram showed preserved ejection fraction with no significant valvular abnormalities. Functioning bioprosthetic valve. 2. Acute on chronic hypoxic respiratory failure on home O2. Secondary to right pleural effusion and underlying COPD. Patient's O2 sats was greater than 90% on 2 L of oxygen throughout hospital stay. 3. Acute COPD exacerbation, continue home bronchodilators. Prednisone 40 mg daily for 3 more days. 4. History of lung cancer diagnosed in 2017 status post radiation therapy, following at [facility] computed tomography scan of the chest showed masslike opacity in the posterior right lung base. Patient was seen and evaluated by pulmonary. Plan to follow-up outpatient. 5. Chronic medical problems: Essential hypertension, former smoker, coronary artery disease with prior stent placement Patient will be discharged home in a stable condition. He will follow up as directed with his PCP and [facility] Patient Condition at Discharge: Serious Plan - Discharge Summary New Discharge Prescriptions: New predniSONE [Deltasone] 40 mg PO DAILY 3 Days #6 tab Continue Prevagen 1 tab PO DAILY Ferrous Sulfate [Iron (65 MG Elemental)] 325 mg PO DAILY Tiotropium [place] [Spiriva Respimat] 1 puff INHALATION RT-BID NIFEdipine [NIFEdipine ER] 30 mg PO DAILY Fluticasone/Vilanterol [Breo Ellipta 200-25 Mcg INH] 1 puff INHALATION RT- DAILY Diazepam [Valium] 5 mg PO BID PRN PRN Reason: Anxiety Magnesium Oxide 400 mg PO BID Pantoprazole [Protonix] 40 mg PO DAILY Metoprolol Tartrate [Lopressor] 25 mg PO BID Potassium Chloride ER [K-Dur 10] 10 meq PO DAILY Furosemide [Lasix] 40 mg PO Q48H Aspirin EC [Ecotrin Low Dose] 81 mg PO DAILY Discharge Medication List Aspirin EC [Ecotrin Low Dose] 81 mg PO DAILY 05/18/21 [History] Diazepam [Valium] 5 mg PO BID PRN 05/18/21 [History] Ferrous Sulfate [Iron (65 MG Elemental)] 325 mg PO DAILY 05/18/21 [History] Fluticasone/Vilanterol [Breo Ellipta 200-25 Mcg INH] 1 puff INHALATION RT-DAILY 05/18/21 [History] Furosemide [Lasix] 40 mg PO Q48H 05/18/21 [History] Magnesium Oxide 400 mg PO BID 05/18/21 [History] Metoprolol Tartrate [Lopressor] 25 mg PO BID 05/18/21 [History] NIFEdipine [NIFEdipine ER] 30 mg PO DAILY 05/18/21 [History] Pantoprazole [Protonix] 40 mg PO DAILY 05/18/21 [History] Potassium Chloride ER [K-Dur 10] 10 meq PO DAILY 05/18/21 [History] Prevagen 1 tab PO DAILY 05/18/21 [History] Tiotropium [place] [Spiriva Respimat] 1 puff INHALATION RT-BID 05/18/21 [History] predniSONE [Deltasone] 40 mg PO DAILY 3 Days #6 tab 05/19/21 [Rx] Follow up Appointment(s)/Referral(s): Jason Hidalgo MD [Primary Care Provider] - 1-2 days Rakesh Cline MD [STAFF PHYSICIAN] - 2 Weeks Discharge Disposition: HOME SELF-CARE
[2021-05-19 15:30] VITALS: BP 120/74; PULSE 76; TEMP 98.6
== END 2021-05-19 17:54 | disposition home or self-care (01) ==
LOC: EC 14:52 → 3SCARD 17:24 → INTOOBSV 17:24 → 3SCARD 18:20
PROVIDERS: ADMIT Internal Medicine; ATTEND Internal Medicine
DX: J96.21 Acute and chronic respiratory failure with hypoxia (principal); J44.1 Chronic obstructive pulmonary disease with (acute) exacerbation; E87.5 Hyperkalemia; I25.10 Atherosclerotic heart disease of native coronary artery without angina pectoris; I10 Essential (primary) hypertension; J90 Pleural effusion, not elsewhere classified; R91.8 Other nonspecific abnormal finding of lung field; J84.10 Pulmonary fibrosis, unspecified; J98.4 Other disorders of lung; I08.1 Rheumatic disorders of both mitral and tricuspid valves; I25.2 Old myocardial infarction; D64.9 Anemia, unspecified; F41.9 Anxiety disorder, unspecified; Z79.82 Long term (current) use of aspirin; Z79.51 Long term (current) use of inhaled steroids; Z79.899 Other long term (current) drug therapy; Z85.118 Personal history of other malignant neoplasm of bronchus and lung; R79.89 Other specified abnormal findings of blood chemistry; Z92.3 Personal history of irradiation; Z95.5 Presence of coronary angioplasty implant and graft; Z95.1 Presence of aortocoronary bypass graft; Z95.3 Presence of xenogenic heart valve; Z87.891 Personal history of nicotine dependence; Z86.16 Personal history of COVID-19; Z98.42 Cataract extraction status, left eye; Z98.41 Cataract extraction status, right eye; Z98.890 Other specified postprocedural states
CPT/HCPCS: 96366 ×3; 96372; 93005 ×2; 96376; 96365; 99285; 36415; 94640 ×3; 93306; 83880; 80053 ×2; 84484 ×2; 85025 ×2; 85610 ×2; 85730 ×2; 87635; 71045; 71260; G0378; J1644 ×3; J7512 ×2; Q9967

== ENCOUNTER 2021-10-17 16:24 | Inpatient (IN) | payer MEDICARE, BC ==
[2021-10-17] MEDS ORDERED: SODIUM CHLORIDE 0.9% 500 ML 500 ML IV STA (17:03)
--- NOTE | 2021-10-17 17:12 | ED ---
General Adult HPI - General Chief complaint: Shortness of Breath Stated complaint: KORIN Time Seen by Provider: 10/17/21 16:45 Source: patient, EMS, RN notes reviewed, old records reviewed Mode of arrival: EMS Limitations: no limitations - History of Present Illness Initial comments: This is an 86-year-old male is brought to the emergency department he himself is a very poor historian but the story that we received from EMS is that he's been having difficulty breathing which has worsened over the last 2 days. No history of any fever was given no history of any chest pain or palpitations was given either. Patient states he is in no pain currently. Patient states his only complaint is short of breath he believes it to be a chronic condition but we were told otherwise that it is definitely worsened over the last 2 days. Patient is on 4 L of oxygen normally and he continues to be on 4 L in the emergency department. COVID status past medical history not known daughters will arrive later we are told - Related Data Home Medications Medication Instructions Recorded Confirmed Aspirin EC [Ecotrin Low Dose] 81 mg PO DAILY 05/18/21 05/18/21 Diazepam [Valium] 5 mg PO BID PRN 05/18/21 05/18/21 Ferrous Sulfate [Iron (65 MG 325 mg PO DAILY 05/18/21 05/18/21 Elemental)] Fluticasone/Vilanterol [Breo 1 puff INHALATION RT-DAILY 05/18/21 05/18/21 Ellipta 200-25 Mcg Inhaler] Furosemide [Lasix] 40 mg PO Q48H 05/18/21 05/18/21 Magnesium Oxide 400 mg PO BID 05/18/21 05/18/21 Metoprolol Tartrate [Lopressor] 25 mg PO BID 05/18/21 05/18/21 NIFEdipine [NIFEdipine ER] 30 mg PO DAILY 05/18/21 05/18/21 Pantoprazole [Protonix] 40 mg PO DAILY 05/18/21 05/18/21 Potassium Chloride ER [K-Dur 10] 10 meq PO DAILY 05/18/21 05/18/21 Prevagen 1 tab PO DAILY 05/18/21 05/18/21 Tiotropium [place] [Spiriva 1 puff INHALATION RT-BID 05/18/21 05/18/21 Respimat] Previous Rx's Medication Instructions Recorded predniSONE [Deltasone] 40 mg PO DAILY 3 Days #6 tab 05/19/21 Allergies Allergy/AdvReac Type Severity Reaction Status Date / Time No Known Allergies Allergy Verified 05/18/21 16:25 Review of Systems ROS Statement: Those systems with pertinent positive or pertinent negative responses have been documented in the HPI. ROS Other: All systems not noted in ROS Statement are negative. Past Medical History Past Medical History: Coronary Artery Disease (CAD), COPD, Hypertension, Myocardial Infarction (PR) Additional Past Medical History / Comment(s): covid 12/15/20 Last Myocardial Infarction Date:: UNSURE History of Any Multi-Drug Resistant Organisms: None Reported Past Surgical History: Back Surgery, Cardiac Valve Replacement, Coronary Bypass/CABG, Heart Catheterization, Orthopedic Surgery Additional Past Surgical History / Comment(s): cataracts Past Psychological History: Anxiety Smoking Status: Never smoker Past Alcohol Use History: None Reported Past Drug Use History: None Reported - Past Family History Mother History Unknown: Yes General Exam - General Exam Comments Initial Comments: GENERAL: Patient is well-developed and well-nourished. Patient is nontoxic and well- hydrated and is in mild distress. ENT: Neck is soft and supple. No significant lymphadenopathy is noted. Oropharynx is clear. Moist mucous membranes. Neck has full range of motion without eliciting any pain. EYES: The sclera were anicteric and conjunctiva were pink and moist. Extraocular movements were intact and pupils were equal round and reactive to light. Eyelids were unremarkable. PULMONARY: Unlabored respirations. She has diffuse expiratory wheezing with some crackles in the bases CARDIOVASCULAR: There is a regular rate and rhythm without any murmurs gallops or rubs. ABDOMEN: Soft and nontender with normal bowel sounds. SKIN: Skin is clear with no lesions or rashes and otherwise unremarkable. NEUROLOGIC: Patient is alert and oriented x3. Cranial nerves II through XII are grossly intact. Motor and sensory are also intact. Normal speech, volume and content. Symmetrical smile. MUSCULOSKELETAL: Normal extremities with adequate strength and full range of motion. Patient has 2+ edema bilateral legs. LYMPHATICS: No significant lymphadenopathy is noted PSYCHIATRIC: Normal psychiatric evaluation. Limitations: no limitations Course Vital Signs 10/17/21 10/17/21 10/17/21 16:41 16:44 18:08 Temperature 98.3 F 99.0 F Pulse Rate 91 91 Respiratory 20 20 20 Rate Blood Pressure 110/80 125/88 O2 Sat by Pulse 90 L 95 Oximetry Medical Decision Making - Medical Decision Making EKG shows atrial flutter at 93 bpm QRS is 74 QT interval 336 QTC is 417. Patient's EKG shows no ST segment elevation or depression. Chest x-ray shows right lung with significant decreased on and substantial opa cification. When I looked at the other x-ray from previous in the year he was very similar to today's is slightly worse. I spoke with the son via the phone and he indicated to me that this was typical as far as he understood. I spoke with significant hospitalist agreed to admit the patient admitted the patient wrote admitting orders. I also consulted cardiology because of the elevated troponin - Lab Data Result diagrams: 10/17/21 17:34 10/17/21 17:34 Lab Results 10/17/21 10/17/21 10/17/21 Range/Units 16:49 17:34 17:34 WBC 10.9 H (3.8-10.6) k/uL RBC 3.39 L (4.30-5.90) m/uL Hgb 10.1 L (13.0-17.5) gm/dL Hct 32.6 L (39.0-53.0) % MCV 96.0 (80.0-100.0) fL MCH 29.9 (25.0-35.0) pg MCHC 31.1 (31.0-37.0) g/dL RDW 13.3 (11.5-15.5) % Plt Count 312 (150-450) k/uL MPV 8.2 Neutrophils % (Manual) 44 % Lymphocytes % (Manual) 42 % Monocytes % (Manual) 13 % Basophils % (Manual) 1 % Neutrophils # (Manual) 4.80 (1.3-7.7) k/uL Lymphocytes # (Manual) 4.58 (1.0-4.8) k/uL Monocytes # (Manual) 1.42 H (0-1.0) k/uL Basophils # (Manual) 0.11 (0-0.2) k/uL Nucleated RBCs 0 (0-0) /100 WBC Manual Slide Review Performed Reactive Lymphocytes Present RBC Morphology Normal PT 11.5 (9.0-12.0) sec INR 1.1 (<1.2) APTT 20.4 L (22.0-30.0) sec Sodium (137-145) mmol/L Potassium (3.5-5.1) mmol/L Chloride (98-107) mmol/L Carbon Dioxide (22-30) mmol/L Anion Gap mmol/L BUN (9-20) mg/dL Creatinine (0.66-1.25) mg/dL Est GFR (CKD-EPI)AfAm (>60 ml/min/1.73 sqM) Est GFR (CKD-EPI)NonAf (>60 ml/min/1.73 sqM) Glucose (74-99) mg/dL Lactic Ac Sepsis Rflx Plasma Lactic Acid Sourav (0.7-2.0) mmol/L Calcium (8.4-10.2) mg/dL Magnesium (1.6-2.3) mg/dL Total Bilirubin (0.2-1.3) mg/dL AST (17-59) U/L ALT (4-49) U/L Alkaline Phosphatase (38-126) U/L Troponin I (0.000-0.034) ng/mL NT-Pro-B Natriuret Pep pg/mL Total Protein (6.3-8.2) g/dL Albumin (3.5-5.0) g/dL Coronavirus (PCR) Not Detected (Not Detectd) 10/17/21 10/17/21 10/17/21 Range/Units 17:34 17:34 17:34 WBC (3.8-10.6) k/uL RBC (4.30-5.90) m/uL Hgb (13.0-17.5) gm/dL Hct (39.0-53.0) % MCV (80.0-100.0) fL MCH (25.0-35.0) pg MCHC (31.0-37.0) g/dL RDW (11.5-15.5) % Plt Count (150-450) k/uL MPV Neutrophils % (Manual) % Lymphocytes % (Manual) % Monocytes % (Manual) % Basophils % (Manual) % Neutrophils # (Manual) (1.3-7.7) k/uL Lymphocytes # (Manual) (1.0-4.8) k/uL Monocytes # (Manual) (0-1.0) k/uL Basophils # (Manual) (0-0.2) k/uL Nucleated RBCs (0-0) /100 WBC Manual Slide Review Reactive Lymphocytes RBC Morphology PT (9.0-12.0) sec INR (<1.2) APTT (22.0-30.0) sec Sodium 138 (137-145) mmol/L Potassium 4.6 (3.5-5.1) mmol/L Chloride 89 L (98-107) mmol/L Carbon Dioxide 38 H (22-30) mmol/L Anion Gap 11 mmol/L BUN 41 H (9-20) mg/dL Creatinine 1.25 (0.66-1.25) mg/dL Est GFR (CKD-EPI)AfAm 60 (>60 ml/min/1.73 sqM) Est GFR (CKD-EPI)NonAf 52 (>60 ml/min/1.73 sqM) Glucose 128 H (74-99) mg/dL Lactic Ac Sepsis Rflx Plasma Lactic Acid Sourav 2.4 H* (0.7-2.0) mmol/L Calcium 7.5 L (8.4-10.2) mg/dL Magnesium 0.6 L* (1.6-2.3) mg/dL Total Bilirubin 0.6 (0.2-1.3) mg/dL AST 28 (17-59) U/L ALT 13 (4-49) U/L Alkaline Phosphatase 75 (38-126) U/L Troponin I 0.250 H* (0.000-0.034) ng/mL NT-Pro-B Natriuret Pep pg/mL Total Protein 6.4 (6.3-8.2) g/dL Albumin 3.3 L (3.5-5.0) g/dL Coronavirus (PCR) (Not Detectd) 10/17/21 10/17/21 Range/Units 17:34 18:04 WBC (3.8-10.6) k/uL RBC (4.30-5.90) m/uL Hgb (13.0-17.5) gm/dL Hct (39.0-53.0) % MCV (80.0-100.0) fL MCH (25.0-35.0) pg MCHC (31.0-37.0) g/dL RDW (11.5-15.5) % Plt Count (150-450) k/uL MPV Neutrophils % (Manual) % Lymphocytes % (Manual) % Monocytes % (Manual) % Basophils % (Manual) % Neutrophils # (Manual) (1.3-7.7) k/uL Lymphocytes # (Manual) (1.0-4.8) k/uL Monocytes # (Manual) (0-1.0) k/uL Basophils # (Manual) (0-0.2) k/uL Nucleated RBCs (0-0) /100 WBC Manual Slide Review Reactive Lymphocytes RBC Morphology PT (9.0-12.0) sec INR (<1.2) APTT (22.0-30.0) sec Sodium (137-145) mmol/L Potassium (3.5-5.1) mmol/L Chloride (98-107) mmol/L Carbon Dioxide (22-30) mmol/L Anion Gap mmol/L BUN (9-20) mg/dL Creatinine (0.66-1.25) mg/dL Est GFR (CKD-EPI)AfAm (>60 ml/min/1.73 sqM) Est GFR (CKD-EPI)NonAf (>60 ml/min/1.73 sqM) Glucose (74-99) mg/dL Lactic Ac Sepsis Rflx Y Plasma Lactic Acid Sourav (0.7-2.0) mmol/L Calcium (8.4-10.2) mg/dL Magnesium (1.6-2.3) mg/dL Total Bilirubin (0.2-1.3) mg/dL AST (17-59) U/L ALT (4-49) U/L Alkaline Phosphatase (38-126) U/L Troponin I (0.000-0.034) ng/mL NT-Pro-B Natriuret Pep 41243 pg/mL Total Protein (6.3-8.2) g/dL Albumin (3.5-5.0) g/dL Coronavirus (PCR) (Not Detectd) Critical Care Time Critical Care Time: Yes Total Critical Care Time: 35 Disposition Clinical Impression: Acute pulmonary edema, NSTEMI (non-ST elevated myocardial infarction), Hypomagnesemia Disposition: ADMITTED IP TO THIS [facility] Referrals: Jason Hidalgo MD [Primary Care Provider] - 1-2 days Time of Disposition: 19:58
[2021-10-17] MEDS ORDERED: ALBUTEROL HFA INHALER INHALATION STA (17:13)
[2021-10-17] MEDS ORDERED: methylPREDNISolone SOD SUCCI 125 MG/2 ML VIAL IV STA (17:13)
--- NOTE | 2021-10-17 17:34 | XR ---
EXAMINATION TYPE: XR chest 1V portable DATE OF EXAM: 10/17/2021 COMPARISON: 05/18/2021 HISTORY: Short of breath TECHNIQUE: 2 views upright FINDINGS: There is almost complete opacification of the right hemithorax. Heart and mediastinum are d eviated to the right side. There are sternal wires. Left lung shows some mild pulmonary interstitial edema. IMPRESSION: There is consolidation and pleural fluid and volume loss in the right hemithorax that has progressed compared to old exam and consistent with progression of tumor. Left side mild pulmonary i nterstitial edema slightly worse than old exam.
[2021-10-17 18:01] LABS: Albumin 3.3 g/dL (3.5-5.0); Calcium 7.5 mg/dL (8.4-10.2); Potassium 4.6 mmol/L (3.5-5.1); Total Bilirubin 0.6 mg/dL (0.2-1.3); Total Protein 6.4 g/dL (6.3-8.2)
[2021-10-17 18:03] LABS: Magnesium 0.6 mg/dL (1.6-2.3)
[2021-10-17 18:10] LABS: INR 1.1 (<1.2); Prothrombin Time 11.5 sec (9.0-12.0)
[2021-10-17 18:19] LABS: HCT 32.6 % (39.0-53.0); HGB 10.1 gm/dL (13.0-17.5); MCH 29.9 pg (25.0-35.0); MCHC 31.1 g/dL (31.0-37.0); Mean Platelet Volume 8.2; Partial Thromboplastin Time 20.4 sec (22.0-30.0); Platelet Count 312 k/uL (150-450); RBC 3.39 m/uL (4.30-5.90); RDW 13.3 % (11.5-15.5); WBC 10.9 k/uL (3.8-10.6)
[2021-10-17] MEDS: MAGNESIUM SULFATE-D5W PMX 1 GM in DEXTROSE/WATER 1 100ML.BAG IVPB SCH ×4 (18:45→23:40)
[2021-10-17 19:16] LABS: Basophils # (M) 0.11 k/uL (0-0.2); Lymphocytes # (M) 4.58 k/uL (1.0-4.8); Monocytes # (M) 1.42 k/uL (0-1.0); Neutrophils % (M) 44 %; Nucleated Red Blood Cells 0 /100 WBC (0-0); Reactive Lymphocytes Present; Total Cells Counted 100
[2021-10-17] MEDS ORDERED: HEPARIN SODIUM 1,000 UN/ML (10ML VL) IV ONE (19:59)
[2021-10-17] MEDS ORDERED: HEPARIN SOD,PORK IN 0.45% NACL 25,000 UNIT in 0.45% NACL 1 250ML.BAG IV SCH (20:00)
[2021-10-17] MEDS ORDERED: ASPIRIN 325 MG TAB PO STA (20:09)
[2021-10-17] MEDS: FUROSEMIDE 10 MG/ML 4 ML VIAL IV SCH (20:53)
[2021-10-17] MEDS ORDERED: NITROGLYCERIN OINT 1 INCH/GM PACKET TOPICAL SCH (22:00)
[2021-10-18 04:13] LABS: HGB 9.5 gm/dL (13.0-17.5); MCHC 32.7 g/dL (31.0-37.0); Mean Platelet Volume 7.9; Platelet Count 271 k/uL (150-450); RBC 2.96 m/uL (4.30-5.90); RDW 12.8 % (11.5-15.5); WBC 9.9 k/uL (3.8-10.6)
[2021-10-18 04:49] LABS: Albumin 2.9 g/dL (3.5-5.0); Bilirubin, Delta 0.3 mg/dL (0.0-0.2); Bilirubin,Unconjugated 0.2 mg/dL (0.0-1.1); Calcium 7.1 mg/dL (8.4-10.2); Magnesium 1.4 mg/dL (1.6-2.3); Potassium 4.7 mmol/L (3.5-5.1); Total Bilirubin 0.5 mg/dL (0.2-1.3); Total Protein 5.7 g/dL (6.3-8.2)
[2021-10-18] MEDS ORDERED: HEPARIN SODIUM 1,000 UN/ML (10ML VL) IV PRN (04:49)
[2021-10-18] MEDS ORDERED: Magnesium Replacement Protocol 1 EACH MISC MISCELLANE PRN (07:39)
[2021-10-18] MEDS ORDERED: ACETAMINOPHEN TAB 500 MG TAB PO PRN (07:39)
[2021-10-18] MEDS ORDERED: ALBUTEROL NEBULIZED 2.5 MG/3 ML INHALATION PRN (07:39)
--- NOTE | 2021-10-18 08:16 | P.HPIM ---
History of Present Illness This is a pleasant 86 years old male with past medical history of Coronary Artery Disease s/p Coronary Bypass/CABG, COPD, Hypertension, covid 12/15/20, Back Surgery, Cardiac Valve Replacement, Non-small cell or right lung cancer diagnosed in 2017 status post radiation treatment through [facility] Patient looks tired lying in bed and looks floppy he is poor historian. He says he became because of difficulty breathing and shortness of breath which was going on for the last 3 months of is getting worse over the last 5-10 days. He has cough and large amount of phlegm but he could not recognize the color. No significant chest pain. He states that he uses 4 L of oxygen at home He is not sure if he has diarrhea but he has no urinary complaints. No vomiting. No headache. No difficulty movement, weakness or numbness He denies smoking, alcohol or illicit drugs Vitas looks stable. He is saturating 95% on 4 L oxygen for nasal cannula Left showing mild leukocytosis 10.9k, , INR 1.1. BMP is unremarkable Elevated lactic acid 2.4 came back to normal at 1.4. Elevated troponin 0.25, critically low magnesium 0.6.Carona virus not detected EKG: Atrial fibrillation at [address] T changes, QTC 417 Chest x-ray: There is consolidation and pleural fluids and volume loss in the right hemithorax that has progressed compared to old exam and consistent with progression of tumor. Left side mild pulmonary interstitial edema slightly worse than old exam On admission patient received breathing treatment, aspirin, heparin drip and one-time dose of Solu-Medrol With [employer] travel counselor team consulted Review of Systems CONSTITUTIONAL: No fever, no malaise, no fatigue. HEENT: No recent visual problems or hearing problems. Denied any sore throat. CARDIOVASCULAR: No orthopnea, PND, no palpitations, no syncope. PULMONARY: No chest wall tenderness, no hemoptysis. GASTROINTESTINAL: No diarrhea, no nausea, no vomiting, no abdominal pain. Normoactive bowel sounds. NEUROLOGICAL: No headaches, no weakness, no numbness. HEMATOLOGICAL: Denies any bleeding or petechiae. GENITOURINARY: Denies any burning micturition, frequency, or urgency. MUSCULOSKELETAL/RHEUMATOLOGICAL: Denies any joint pain, swelling, or any muscle pain. ENDOCRINE: Denies any polyuria or polydipsia. Past Medical History Past Medical History: Coronary Artery Disease (CAD), COPD, Hypertension, Myocardial Infarction (SC) Additional Past Medical History / Comment(s): covid 12/15/20 Last Myocardial Infarction Date:: UNSURE History of Any Multi-Drug Resistant Organisms: None Reported Past Surgical History: Back Surgery, Cardiac Valve Replacement, Coronary Bypass/CABG, Heart Catheterization, Orthopedic Surgery Additional Past Surgical History / Comment(s): cataracts Past Psychological History: Anxiety Smoking Status: Never smoker Past Alcohol Use History: None Reported Past Drug Use History: None Reported - Past Family History Mother History Unknown: Yes Medications and Allergies Home Medications Medication Instructions Recorded Confirmed Type Aspirin EC [Ecotrin Low Dose] 81 mg PO DAILY 05/18/21 10/17/21 History Fluticasone/Vilanterol [Breo 1 puff INHALATION RT-DAILY 05/18/21 10/17/21 History Ellipta 200-25 Mcg Inhaler] Magnesium Oxide 400 mg PO BID 05/18/21 10/17/21 History Metoprolol Tartrate [Lopressor] 25 mg PO BID 05/18/21 10/17/21 History NIFEdipine [NIFEdipine ER] 30 mg PO DAILY 05/18/21 10/17/21 History Pantoprazole [Protonix] 40 mg PO DAILY 05/18/21 10/17/21 History Potassium Chloride ER [K-Dur 10] 10 meq PO DAILY 05/18/21 10/17/21 History Acetaminophen Tab [Tylenol] 1,000 mg PO Q4-6H PRN 10/17/21 10/17/21 History Albuterol Nebulized [Ventolin 2.5 mg PO Q4H PRN 10/17/21 10/17/21 History Nebulized] Atorvastatin [Lipitor] 10 mg PO HS 10/17/21 10/17/21 History Cholecalciferol [Vitamin D3 (25 25 mcg PO DAILY 10/17/21 10/17/21 History Mcg = 1000 Iu)] Folic Acid 1 mg PO DAILY 10/17/21 10/17/21 History Furosemide [Lasix] 20 mg PO DAILY 10/17/21 10/17/21 History Allergies Allergy/AdvReac Type Severity Reaction Status Date / Time No Known Allergies Allergy Verified 10/17/21 21:39 Physical Exam Vitals: Vital Signs Temp Pulse Pulse Resp BP BP Pulse Ox 10/18/21 06:43 98 17 136/90 93 L 10/18/21 02:57 113 H 16 116/73 93 L 10/18/21 01:31 98.7 F 131 H 20 107/72 92 L 10/17/21 23:00 121 H 18 107/72 10/17/21 18:08 99.0 F 91 20 125/88 95 10/17/21 16:44 20 10/17/21 16:41 98.3 F 91 20 110/80 90 L Intake and Output 10/17/21 10/18/21 10/18/21 22:59 06:59 14:59 Intake Total 63.881 Balance 63.881 Intake: Intake, IV Titration 63.881 Amount Heparin Sod,Pork in 0.45% 63.881 NaCl 25,000 unit In 0.45 % NaCl 1 250ml.bag @ 12 UNITS/KG/HR 7.62 mls/hr IV .Q24H [facility] Rx#: [id number] Other: Weight 63.503 kg 63.503 kg -GENERAL: The patient is alert and oriented x1-2, not in any acute distress. Well developed, well nourished. Generally weak HEENT: Pupils are round and equally reacting to light. EOMI. No scleral icterus. No conjunctival pallor. Normocephalic, atraumatic. No pharyngeal erythema. No thyromegaly. CARDIOVASCULAR: S1 and S2 present. No murmurs, rubs, or gallops. -PULMONARY: Chest is clear to auscultation, no wheezing or crackles. , Decreased breath sounds on the right side with some crepitation bilaterally ABDOMEN: Soft, nontender, nondistended, normoactive bowel sounds. No palpable organomegaly. MUSCULOSKELETAL: No joint swelling or deformity. EXTREMITIES: No cyanosis, clubbing, or pedal edema. NEUROLOGICAL: Gross neurological examination did not reveal any focal deficits. SKIN: No rashes. No petechiae Results CBC & Chem 7: 10/18/21 03:50 10/18/21 03:50 Labs: Abnormal Lab Results - Last 24 Hours (Table) 10/17/21 10/17/21 10/17/21 Range/Units 17:34 17:34 17:34 WBC 10.9 H (3.8-10.6) k/uL RBC 3.39 L (4.30-5.90) m/uL Hgb 10.1 L (13.0-17.5) gm/dL Hct 32.6 L (39.0-53.0) % Monocytes # (Manual) 1.42 H (0-1.0) k/uL APTT 20.4 L (22.0-30.0) sec Sodium (137-145) mmol/L Chloride 89 L (98-107) mmol/L Carbon Dioxide 38 H (22-30) mmol/L BUN 41 H (9-20) mg/dL Creatinine (0.66-1.25) mg/dL Glucose 128 H (74-99) mg/dL Plasma Lactic Acid Sourav (0.7-2.0) mmol/L Calcium 7.5 L (8.4-10.2) mg/dL Magnesium 0.6 L* (1.6-2.3) mg/dL Delta Bilirubin (0.0-0.2) mg/dL Troponin I (0.000-0.034) ng/mL Total Protein (6.3-8.2) g/dL Albumin 3.3 L (3.5-5.0) g/dL 10/17/21 10/17/21 10/17/21 Range/Units 17:34 17:34 23:41 WBC (3.8-10.6) k/uL RBC (4.30-5.90) m/uL Hgb (13.0-17.5) gm/dL Hct (39.0-53.0) % Monocytes # (Manual) (0-1.0) k/uL APTT (22.0-30.0) sec Sodium (137-145) mmol/L Chloride (98-107) mmol/L Carbon Dioxide (22-30) mmol/L BUN (9-20) mg/dL Creatinine (0.66-1.25) mg/dL Glucose (74-99) mg/dL Plasma Lactic Acid Sourav 2.4 H* (0.7-2.0) mmol/L Calcium (8.4-10.2) mg/dL Magnesium (1.6-2.3) mg/dL Delta Bilirubin (0.0-0.2) mg/dL Troponin I 0.250 H* 0.204 H* (0.000-0.034) ng/mL Total Protein (6.3-8.2) g/dL Albumin (3.5-5.0) g/dL 10/18/21 10/18/21 10/18/21 Range/Units 03:50 03:50 03:50 WBC (3.8-10.6) k/uL RBC 2.96 L (4.30-5.90) m/uL Hgb 9.5 L (13.0-17.5) gm/dL Hct 29.0 L (39.0-53.0) % Monocytes # (Manual) (0-1.0) k/uL APTT (22.0-30.0) sec Sodium 134 L (137-145) mmol/L Chloride 89 L (98-107) mmol/L Carbon Dioxide 38 H (22-30) mmol/L BUN 43 H (9-20) mg/dL Creatinine 1.28 H (0.66-1.25) mg/dL Glucose 240 H (74-99) mg/dL Plasma Lactic Acid Sourav (0.7-2.0) mmol/L Calcium 7.1 L (8.4-10.2) mg/dL Magnesium 1.4 L (1.6-2.3) mg/dL Delta Bilirubin 0.3 H (0.0-0.2) mg/dL Troponin I 0.247 H* (0.000-0.034) ng/mL Total Protein 5.7 L (6.3-8.2) g/dL Albumin 2.9 L (3.5-5.0) g/dL 10/18/21 Range/Units 03:50 WBC (3.8-10.6) k/uL RBC (4.30-5.90) m/uL Hgb (13.0-17.5) gm/dL Hct (39.0-53.0) % Monocytes # (Manual) (0-1.0) k/uL APTT 40.1 H (22.0-30.0) sec Sodium (137-145) mmol/L Chloride (98-107) mmol/L Carbon Dioxide (22-30) mmol/L BUN (9-20) mg/dL Creatinine (0.66-1.25) mg/dL Glucose (74-99) mg/dL Plasma Lactic Acid Sourav (0.7-2.0) mmol/L Calcium (8.4-10.2) mg/dL Magnesium (1.6-2.3) mg/dL Delta Bilirubin (0.0-0.2) mg/dL Troponin I (0.000-0.034) ng/mL Total Protein (6.3-8.2) g/dL Albumin (3.5-5.0) g/dL Thrombosis Risk Factor Assmnt - Choose All That Apply Any of the Below Risk Factors Present?: Yes Each Factor Represents 1 point: Abnormal pulmonary function (COPD) Each Risk Factor Represents 3 Points: Age 75 years or older Thrombosis Risk Factor Assessment Total Risk Factor Score: 4 Thrombosis Risk Factor Assessment Level: Moderate Risk Assessment and Plan Assessment: Non-small cell of the right Lung cancer (since 2017 ) with recent chest x-ray showed a progression of tumor on the right side Elevated troponin, rule out cardiac causes and non-STEMI Altered mental status, most likely metabolic encephalopathy Acute COPD exacerbation Severe hypomagnesemia Chronic atrial fibrillation chronic hypoxic respiratory failure on oxygen via nasal cannula at home History of coronary artery disease status post CABG Hypertension History of Covid infection earlier this year Chronic back pain status post surgery History of heart valve replacement Plan: This is a pleasant 86 years old male who presents with progressed right lung CANCER, AND non STEMI. Continue with heparin, aspirin, cardiology consult Continue with lasix Pulmonary team on the case Consult oncology team for worsened right-sided lung tumor Labs and medication were reviewed.. Continue same treatment. Continue with symptomatic treatment. Resume home medication. Monitor lytes and vitals. DVT and GI prophylaxis. Further recommendations depends on the clinical course of the patient DVT prophylaxis: heparin GI Prophylaxis: Pepcid PT/OT: Pending Prognosis is guarded
--- NOTE | 2021-10-18 08:48 | US ---
EXAMINATION TYPE: US chest DATE OF EXAM: 10/18/2021 CLINICAL HISTORY: shortness of breath. Comparison: xray 10/17/[address] May 19, 2021 TECHNIQUE: Targeted ultrasound of the posterior lower bilateral hemithoraces EXAM MEASUREMENTS: Right Pleural Effusion pocket size: 0 cm Left Pleural Effusion pocket size: 0 cm Pulmonologists are able to review the images in the patient?s EMR. No significant pleural effusions or fluid seen on images saved, small amount of perisplenic ascites l eft upper quadrant noted. IMPRESSIONS: As above.
[2021-10-18] MEDS ORDERED: METOPROLOL TARTRATE 25 MG TAB PO SCH (09:00)
[2021-10-18] MEDS ORDERED: ASPIRIN 325 MG TAB PO SCH (09:00)
[2021-10-18] MEDS ORDERED: FAMOTIDINE 20 MG/2 ML VIAL IV SCH (09:00)
[2021-10-18] MEDS ORDERED: ASPIRIN 81 MG PO SCH (09:00)
[2021-10-18] MEDS: FUROSEMIDE 10 MG/ML 4 ML VIAL IV SCH ×2 (09:32→20:34)
[2021-10-18] MEDS: PANTOPRAZOLE 40 MG TABLET PO SCH (09:33)
[2021-10-18] MEDS: CHOLECALCIFEROL 25 MCG (1000 IU) TABLET PO SCH (09:33)
[2021-10-18] MEDS: POTASSIUM CHLORIDE ER 10 MEQ TAB.ER.PRT PO SCH (09:33)
[2021-10-18] MEDS: MAGNESIUM OXIDE 400 MG TAB PO SCH ×2 (09:33→20:27)
[2021-10-18] MEDS: APIXABAN 2.5 MG TABLET PO SCH ×2 (09:33→20:27)
[2021-10-18] MEDS: METOPROLOL TARTRATE 50 MG TAB PO SCH ×2 (09:33→21:00)
--- NOTE | 2021-10-18 11:23 | P.CNPUL ---
History of Present Illness Consult date: 10/18/21 Requesting physician: Meng E Sheet Reason for consult: dyspnea, COPD, hypoxemia, pleural effusion, abnormal CXR/CT Chief complaint: Shortness of breath History of present illness: 86-year-old white male patient follows with Dr. Hall, has a history of non- small cell lung cancer in the right lung, status post radiation treatment through [facility] and this was diagnosed in 2017, COPD, on home oxygen at 2-3 L per nasal cannula, hypertension, coronary artery disease with previous coronary artery bypass grafting, valve replacement, anxiety. Patient presented to the hospital on 10/17/2021 for evaluation of shortness of breath that had worsened over last 2 days. No history of any fever. No complaints of chest pain or palpitations. Most recently patient has been wearing 4 L of oxygen on a regular basis, he is currently up to 5 L in the emergency department, and COVID 19 PCR was negative. Chest x-ray showed consolidation and pleural fluid and volume loss in the right hemithorax that has progressed compared to his old exam from April 2021 and was consistent with progression of tumor. There is left- sided mild pulmonary interstitial edema slightly worse than old exam. Today's labs have been reviewed showing white blood cell count of 10.9, hemoglobin 10.1, INR of 1.1, sodium is 138, potassium is 4.6, chloride is 89, CO2 is 38, BUN is 41, creatinine is 1.25, lactic acid is 2.4, magnesium was 0.6, calcium 7.5, troponins were elevated at 0.250, 0.204, and 0.247. ProBNP was elevated at 17,500. Stanley of the chest has been obtained and showed no sizable pleural effusion on either side. His EKG showed atrial fibrillation with evidence of septal infarct of undetermined age. Patient has been started on IV Lasix in the emergency department, nebulized bronchodilators, he was cleared dose of IV methylprednisolone and this consult was initiated. Review of Systems All systems: negative Constitutional: Denies chills, Denies fever Eyes: denies blurred vision, denies pain Ears, nose, mouth and throat: Denies headache, Denies sore throat Cardiovascular: Denies chest pain, Denies shortness of breath Respiratory: Reports cough, Reports dyspnea, Reports home oxygen, Reports respiratory infections Gastrointestinal: Denies abdominal pain, Denies diarrhea, Denies nausea, Denies vomiting Musculoskeletal: Denies myalgias Integumentary: Denies pruritus, Denies rash Neurological: Denies numbness, Denies weakness Psychiatric: Denies anxiety, Denies depression Endocrine: Denies fatigue, Denies weight change Past Medical History Past Medical History: Coronary Artery Disease (CAD), COPD, Hypertension, Myocardial Infarction ([place]) Additional Past Medical History / Comment(s): covid 12/15/20 Last Myocardial Infarction Date:: UNSURE History of Any Multi-Drug Resistant Organisms: None Reported Past Surgical History: Back Surgery, Cardiac Valve Replacement, Coronary Bypass/CABG, Heart Catheterization, Orthopedic Surgery Additional Past Surgical History / Comment(s): cataracts Past Psychological History: Anxiety Smoking Status: Never smoker Past Alcohol Use History: None Reported Past Drug Use History: None Reported - Past Family History Mother History Unknown: Yes Medications and Allergies Home Medications Medication Instructions Recorded Confirmed Type Aspirin EC [Ecotrin Low Dose] 81 mg PO DAILY 05/18/21 10/17/21 History Fluticasone/Vilanterol [Breo 1 puff INHALATION RT-DAILY 05/18/21 10/17/21 History Ellipta 200-25 Mcg Inhaler] Magnesium Oxide 400 mg PO BID 05/18/21 10/17/21 History Metoprolol Tartrate [Lopressor] 25 mg PO BID 05/18/21 10/17/21 History NIFEdipine [NIFEdipine ER] 30 mg PO DAILY 05/18/21 10/17/21 History Pantoprazole [Protonix] 40 mg PO DAILY 05/18/21 10/17/21 History Potassium Chloride ER [K-Dur 10] 10 meq PO DAILY 05/18/21 10/17/21 History Acetaminophen Tab [Tylenol] 1,000 mg PO Q4-6H PRN 10/17/21 10/17/21 History Albuterol Nebulized [Ventolin 2.5 mg PO Q4H PRN 10/17/21 10/17/21 History Nebulized] Atorvastatin [Lipitor] 10 mg PO HS 10/17/21 10/17/21 History Cholecalciferol [Vitamin D3 (25 25 mcg PO DAILY 10/17/21 10/17/21 History Mcg = 1000 Iu)] Folic Acid 1 mg PO DAILY 10/17/21 10/17/21 History Furosemide [Lasix] 20 mg PO DAILY 10/17/21 10/17/21 History Allergies Allergy/AdvReac Type Severity Reaction Status Date / Time No Known Allergies Allergy Verified 10/17/21 21:39 Physical Exam Vitals: Vital Signs Temp Pulse Pulse Resp BP BP Pulse Ox 10/18/21 08:00 123/89 10/18/21 06:43 98 17 136/90 93 L 10/18/21 02:57 113 H 16 116/73 93 L 10/18/21 01:31 98.7 F 131 H 20 107/72 92 L 10/17/21 23:00 121 H 18 107/72 10/17/21 18:08 99.0 F 91 20 125/88 95 10/17/21 16:44 20 10/17/21 16:41 98.3 F 91 20 110/80 90 L Intake and Output 10/17/21 10/18/21 10/18/21 22:59 06:59 14:59 Intake Total 63.881 Balance 63.881 Intake: Intake, IV Titration 63.881 Amount Heparin Sod,Pork in 0.45% 63.881 NaCl 25,000 unit In 0.45 % NaCl 1 250ml.bag @ 12 UNITS/KG/HR 7.62 mls/hr IV .Q24H [facility] Rx#: [id number] Other: Weight 63.503 kg 63.503 kg GENERAL EXAM: Alert, very pleasant, 86-year-old white male, who is a poor historian, resting comfortably in the bed in the emergency department, awaiting a bed for monitored bed on selective, currently on 5 L the pulse ox of 93% comfortable in no apparent distress. HEAD: Normocephalic/atraumatic. EYES: Normal reaction of pupils, equal size. Conjunctiva pink, sclera white. NOSE: Clear with pink turbinates. THROAT: No erythema or exudates. NECK: No masses, no JVD, no thyroid enlargement, no adenopathy. CHEST: No chest wall deformity. Symmetrical expansion. LUNGS: Breath sounds are diminished over right lung, with diffuse crackles on the left CVS: Irregular rate and rhythm, normal S1 and S2, no gallops, no murmurs, no rubs ABDOMEN: Soft, nontender. No hepatosplenomegaly, normal bowel sounds, no guarding or rigidity. EXTREMITIES: No clubbing, no edema, no cyanosis, 2+ pulses and upper and lower extremities. MUSCULOSKELETAL: Muscle strength and tone normal. SPINE: No scoliosis or deformity SKIN: No rashes CENTRAL NERVOUS SYSTEM: Alert and oriented -3. No focal deficits, tone is nor mal in all 4 extremities. PSYCHIATRIC: Alert and oriented -3. Appropriate affect. Intact judgment and insight. Results - Laboratory Findings CBC and BMP: 10/18/21 03:50 10/18/21 03:50 PT/INR, D-dimer PT 11.5 sec (9.0-12.0) 10/17/21 17:34 INR 1.1 (<1.2) 10/17/21 17:34 Abnormal lab findings: Abnormal Labs 10/17/21 10/17/21 10/17/21 17:34 17:34 17:34 WBC 10.9 H RBC 3.39 L Hgb 10.1 L Hct 32.6 L Monocytes # (Manual) 1.42 H APTT 20.4 L Sodium Chloride 89 L Carbon Dioxide 38 H BUN 41 H Creatinine Glucose 128 H Plasma Lactic Acid Sourav Calcium 7.5 L Magnesium 0.6 L* Delta Bilirubin Troponin I Total Protein Albumin 3.3 L Procalcitonin 10/17/21 10/17/21 10/17/21 17:34 17:34 23:41 WBC RBC Hgb Hct Monocytes # (Manual) APTT Sodium Chloride Carbon Dioxide BUN Creatinine Glucose Plasma Lactic Acid Sourav 2.4 H* Calcium Magnesium Delta Bilirubin Troponin I 0.250 H* 0.204 H* Total Protein Albumin Procalcitonin 10/18/21 10/18/21 10/18/21 03:50 03:50 03:50 WBC RBC 2.96 L Hgb 9.5 L Hct 29.0 L Monocytes # (Manual) APTT Sodium Chloride Carbon Dioxide BUN Creatinine Glucose Plasma Lactic Acid Sourav Calcium Magnesium Delta Bilirubin Troponin I 0.247 H* Total Protein Albumin Procalcitonin 0.12 H 10/18/21 10/18/21 10/18/21 03:50 03:50 09:38 WBC RBC Hgb Hct Monocytes # (Manual) APTT 40.1 H 40.7 H Sodium 134 L Chloride 89 L Carbon Dioxide 38 H BUN 43 H Creatinine 1.28 H Glucose 240 H Plasma Lactic Acid Sourav Calcium 7.1 L Magnesium 1.4 L Delta Bilirubin 0.3 H Troponin I Total Protein 5.7 L Albumin 2.9 L Procalcitonin - Diagnostic Findings Chest x-ray: report reviewed, image reviewed Additional studies: Ultrasound of the chest reviewed, EKG reviewed Assessment and Plan Plan: Assessment: #1. Acute on chronic hypoxic respiratory failure, multifactorial, likely related to progression of lung cancer, acute exacerbation of COPD, and possibly acute CHF with previously documented diastolic dysfunction #2. History of non-small cell lung cancer in his right lung, diagnosed in 2017, status post radiation treatment at [facility] #3. Positive troponins, rule out possibility of non-ST elevated myocardial infarction #4. Atrial fibrillation, possibly new onset, controlled rate, started on Eliquis per cardiology #5. History of failed a heart disease status post valve replacement at [facility], status post aortic valve replacement with a bioprosthetic aortic valve #6. Coronary artery disease with previous history of coronary artery bypass grafting #7. Former smoker #8. History of advanced COPD on home oxygen most recently wearing 4 L of oxygen on a regular basis #9. 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 Previous history of myocardial infarction #11. Anxiety Plan: Continue IV steroids and bronchodilators Ultrasound the chest has been reviewed showing no sizable effusion pocket on either side Findings on the chest x-ray are consistent with progression of lung cancer The patient is in no distress Continue on medical treatment Continue anticoagulation and rate control medications per cardiology Cardiology recs for troponin elevation May have to consider bronchoscopy with possible biopsies at a later stage Continue to follow his progress Overall prognosis is guarded I performed a history & physical examination of the patient and discussed their management with my nurse practitioner, Zohra Thornton. I reviewed the nurse practitioner's note and agree with the documented findings and plan of care. Lung sounds are positive for diminished breath sounds. throughout the lung shaw. The findings and the impression was discussed with the patient. I attest to the documentation by the nurse practitioner. Time with Patient: Greater than 30
--- NOTE | 2021-10-18 11:43 | P.CRDCN ---
History of Present Illness History of present illness: This is a pleasant 86-year-old male past medical history significant for Lung cancer diagnosed in 2017 status post radiation at [facility], Chronic hypoxic respiratory failure, COPD, coronary artery disease and aortic stenosis s/p CABG and aortic valve replacement about 5 years ago at [facility]. He states he did have COVID-19 late last year. He follows with Dr. Cline last seen in 05/2020 but didn't follow up. He is not quite sure of the details of his medical history. Poor historian. We have been asked to see in consultation for elevated troponin. Patient presents emergency department with worsening shortness of breath. He denies chest pain, palpitations, lightheadedness, dizziness, nausea, diaphoresis or abdominal pain. Denies fevers or chills. Denies syncope or pre-syncope. Denies history of Diabetes or stroke. Denies tobacco use or alcohol use. On admission patient found to be in atrial flutter. DIAGNOSTICS EKG reveals atrial flutter, heart rate 93 Patient not on telemetry in Emergency department Chest xray consolidation and pleural fluid and volume loss right hemithorax has progressed compared to old exam. Consistent with progression of tumor, left-sided mild pulmonary interstitial edema slightly worsen 04/2021 Echocardiogram results indicate EF of 60-65%, RV is mildly enlarged, normally functioning bioprosthetic valve, trace to mild mitral regurgitation, mild tricuspid regurgitation, no pericardial effusion. Laboratory reviewed, troponin 0.25, 0.0, 0.24, WBC 9.9, hemoglobin 9.5, platelets 271, sodium 134, potassium 4.7, BUN 43, serum creatinine 1.2, magnesium 0.6, repeat 1.4, proBNP 16,400, albumin 2.9, covid-19 negative REVIEW OF SYSTEMS At the time of my exam: CONSTITUTIONAL: Denies fever or chills. CARDIOVASCULAR: +shortness of breath, Denies chest pain, palpitations. RESPIRATORY: Denies cough. GASTROINTESTINAL: Denies abdominal pain, diarrhea, constipation, nausea or vomiting. MUSCULOSKELETAL: Denies myalgias. NEUROLOGIC: Denies numbness, tingling, headacbe or weakness. ENDOCRINE: Denies fatigue, weight change, polydipsia or polyurina. GENITOURINARY: Denies burning, hematuria or urgency with micturation. HEMATOLOGIC: Denies history of anemia or bleeding. PHYSICAL EXAMINATION Blood pressure 136/90, heart rate 98, afebrile, oxygen saturation is 93% on 5 L nasal cannula CONSTITUTIONAL: No apparent distress. HEENT: Head is normocephalic. Pupils are equal, round. Sclerae anicteric. Mucous membranes of the mouth are moist. + JVD. No carotid bruit. CHEST EXAMINATION: Lungs are crackles in the bases to auscultation. No chest wall tenderness is noted on palpation or with deep breathing. HEART EXAMINATION: Regular rate and rhythm. S1, S2 heard. ABDOMEN: Soft, nontender. Positive bowel sounds. EXTREMITIES: 2+ peripheral pulses, no lower extremity edema and no calf tenderness. SKIN: intact NEUROLOGIC EXAMINATION: Patient is awake, alert and oriented x3. Poor historian ASSESSMENT Paroxysmal typical atrial flutter [id number] score 5 Acute heart failure exacerbation, echocardiogram pending Elevated troponin not indicative of acute coronary syndrome, no evidence of ischemia noted on EKG. Most likely supply and demand mismatch and new onset atrial flutter Coronary Artery Disease s/p CABG (unknown details) History of aortic stenosis s/p aortic valve replacement (unknown details) COPD Hypertension Hypomagnesemia Lung cancer diagnosed in 2017 status post radiation at [facility] PLAN -Obtain 2D echocardiogram -Continue IV Lasix 40 mg BID -Monitor I's and O's and daily weights -Monitor renal function and electrolytes -Continue cardiac telemetry -Start Eliquis 2.5 mg BID (age and renal function). Consult case management for coverage of medication -Discontinue aspirin -Continue metoprolol tartrate and statin -Further recommendations based on clinical course Past Medical History Past Medical History: Coronary Artery Disease (CAD), COPD, Hypertension, Memory Impairment, Myocardial Infarction ([place]) Additional Past Medical History / Comment(s): covid 12/15/20 Last Myocardial Infarction Date:: UNSURE History of Any Multi-Drug Resistant Organisms: None Reported Past Surgical History: Back Surgery, Cardiac Valve Replacement, Coronary Bypass/CABG, Heart Catheterization, Orthopedic Surgery Additional Past Surgical History / Comment(s): cataracts Past Psychological History: Anxiety Smoking Status: Never smoker Past Alcohol Use History: None Reported Past Drug Use History: None Reported - Past Family History Mother History Unknown: Yes Medications and Allergies Home Medications Medication Instructions Recorded Confirmed Type Aspirin EC [Ecotrin Low Dose] 81 mg PO DAILY 05/18/21 10/17/21 History Fluticasone/Vilanterol [Breo 1 puff INHALATION RT-DAILY 05/18/21 10/17/21 History Ellipta 200-25 Mcg Inhaler] Magnesium Oxide 400 mg PO BID 05/18/21 10/17/21 History Metoprolol Tartrate [Lopressor] 25 mg PO BID 05/18/21 10/17/21 History NIFEdipine [NIFEdipine ER] 30 mg PO DAILY 05/18/21 10/17/21 History Pantoprazole [Protonix] 40 mg PO DAILY 05/18/21 10/17/21 History Potassium Chloride ER [K-Dur 10] 10 meq PO DAILY 05/18/21 10/17/21 History Acetaminophen Tab [Tylenol] 1,000 mg PO Q4-6H PRN 10/17/21 10/17/21 History Albuterol Nebulized [Ventolin 2.5 mg PO Q4H PRN 10/17/21 10/17/21 History Nebulized] Atorvastatin [Lipitor] 10 mg PO HS 10/17/21 10/17/21 History Cholecalciferol [Vitamin D3 (25 25 mcg PO DAILY 10/17/21 10/17/21 History Mcg = 1000 Iu)] Folic Acid 1 mg PO DAILY 10/17/21 10/17/21 History Furosemide [Lasix] 20 mg PO DAILY 10/17/21 10/17/21 History Allergies Allergy/AdvReac Type Severity Reaction Status Date / Time No Known Allergies Allergy Verified 10/17/21 21:39 Physical Exam Vitals: Vital Signs Temp Pulse Pulse Resp BP BP Pulse Ox 10/18/21 06:43 98 17 136/90 93 L 10/18/21 02:57 113 H 16 116/73 93 L 10/18/21 01:31 98.7 F 131 H 20 107/72 92 L 10/17/21 23:00 121 H 18 107/72 10/17/21 18:08 99.0 F 91 20 125/88 95 10/17/21 16:44 20 10/17/21 16:41 98.3 F 91 20 110/80 90 L Intake and Output 10/17/21 10/18/21 10/18/21 22:59 06:59 14:59 Intake Total 63.881 Balance 63.881 Intake: Intake, IV Titration 63.881 Amount Heparin Sod,Pork in 0.45% 63.881 NaCl 25,000 unit In 0.45 % NaCl 1 250ml.bag @ 12 UNITS/KG/HR 7.62 mls/hr IV .Q24H [facility] Rx#: [id number] Other: Weight 63.503 kg 63.503 kg Results 10/18/21 03:50 10/18/21 03:50 Cardiac Enzymes 10/17/21 10/17/21 10/17/21 Range/Units 17:34 17:34 23:41 AST 28 (17-59) U/L Troponin I 0.250 H* 0.204 H* (0.000-0.034) ng/mL 10/18/21 10/18/21 Range/Units 03:50 03:50 AST 41 (17-59) U/L Troponin I 0.247 H* (0.000-0.034) ng/mL Coagulation 10/17/21 10/18/21 Range/Units 17:34 03:50 PT 11.5 (9.0-12.0) sec APTT 20.4 L 40.1 H (22.0-30.0) sec CBC 10/17/21 10/18/21 Range/Units 17:34 03:50 WBC 10.9 H 9.9 (3.8-10.6) k/uL RBC 3.39 L 2.96 L (4.30-5.90) m/uL Hgb 10.1 L 9.5 L (13.0-17.5) gm/dL Hct 32.6 L 29.0 L (39.0-53.0) % Plt Count 312 271 (150-450) k/uL Comprehensive Metabolic Panel 10/17/21 10/18/21 Range/Units 17:34 03:50 Sodium 138 134 L (137-145) mmol/L Potassium 4.6 4.7 (3.5-5.1) mmol/L Chloride 89 L 89 L (98-107) mmol/L Carbon Dioxide 38 H 38 H (22-30) mmol/L BUN 41 H 43 H (9-20) mg/dL Creatinine 1.25 1.28 H (0.66-1.25) mg/dL Glucose 128 H 240 H (74-99) mg/dL Calcium 7.5 L 7.1 L (8.4-10.2) mg/dL Unconjugated Bilirubin 0.2 (0.0-1.1) mg/dL AST 28 41 (17-59) U/L ALT 13 12 (4-49) U/L Alkaline Phosphatase 75 74 (38-126) U/L Total Protein 6.4 5.7 L (6.3-8.2) g/dL Albumin 3.3 L 2.9 L (3.5-5.0) g/dL Current Medications Generic Name Dose Route Start Last Admin Trade Name Abimaelq PRN Reason Stop Dose Admin Aspirin 325 mg 10/18/21 09:00 Aspirin 325 Mg Tab PO DAILY [facility] Furosemide 40 mg 10/17/21 20:15 10/17/21 20:53 Furosemide 10 Mg/Ml 4 Ml Vial IV 40 mg Q12H [facility] Administration Heparin Sodium (Porcine) 0 unit 10/18/21 04:49 10/18/21 05:14 Heparin Sodium 1,000 Un/Ml (10ml Vl) IV 1,575 unit PER PROTOCOL PRN Administration Low PTT Protocol Heparin Sodium/Sodium Chloride 250 mls @ 7.62 mls/hr 10/17/21 20:00 10/18/21 05:25 25,000 unit/ Sodium Chloride IV 14 units/kg/hr .Q24H [facility] 8.89 mls/hr Titration Protocol 12 UNITS/KG/HR Nitroglycerin 1 inch 10/17/21 22:00 10/17/21 23:42 Nitroglycerin Oint 1 Inch/Gm Packet TOPICAL 1 inch QID [facility] Administration Intake and Output 10/17/21 10/18/21 10/18/21 22:59 06:59 14:59 Intake Total 63.881 Balance 63.881 Intake: Intake, IV Titration 63.881 Amount Heparin Sod,Pork in 0.45% 63.881 NaCl 25,000 unit In 0.45 % NaCl 1 250ml.bag @ 12 UNITS/KG/HR 7.62 mls/hr IV .Q24H [facility] Rx#: [id number] Other: Weight 63.503 kg 63.503 kg 10/18/21 03:50 10/18/21 03:50
--- NOTE | 2021-10-18 12:49 | P.CONS ---
History of Present Illness - Reason for Consult Consult date: 10/18/21 History of Lung Cancer Requesting physician: Meng E Sheet - Chief Complaint SOB - History of Present Illness Mr. Keane is a 86 year old male patient with history of Right Lung Cancer diagnosed in 2017, status post radiation treatment. He follows with oncology out of [facility]. He was seen and examined while in Emergency department this am, at that time he was alert and oriented without any severe complaints. He was unable to tell us the name of his primary cancer doctor and/or much of his medical history. Review of Systems poor historian All systems: negative Constitutional: Reports as per HPI Past Medical History Past Medical History: Coronary Artery Disease (CAD), COPD, Hypertension, Memory Impairment, Myocardial Infarction (CA) Additional Past Medical History / Comment(s): covid 12/15/20 Last Myocardial Infarction Date:: UNSURE History of Any Multi-Drug Resistant Organisms: None Reported Past Surgical History: Back Surgery, Cardiac Valve Replacement, Coronary Bypass/CABG, Heart Catheterization, Orthopedic Surgery Additional Past Surgical History / Comment(s): cataracts Past Psychological History: Anxiety Smoking Status: Never smoker Past Alcohol Use History: None Reported Past Drug Use History: None Reported - Past Family History Mother History Unknown: Yes Medications and Allergies Home Medications Medication Instructions Recorded Confirmed Type Aspirin EC [Ecotrin Low Dose] 81 mg PO DAILY 05/18/21 10/17/21 History Fluticasone/Vilanterol [Breo 1 puff INHALATION RT-DAILY 05/18/21 10/17/21 History Ellipta 200-25 Mcg Inhaler] Magnesium Oxide 400 mg PO BID 05/18/21 10/17/21 History Metoprolol Tartrate [Lopressor] 25 mg PO BID 05/18/21 10/17/21 History NIFEdipine [NIFEdipine ER] 30 mg PO DAILY 05/18/21 10/17/21 History Pantoprazole [Protonix] 40 mg PO DAILY 05/18/21 10/17/21 History Potassium Chloride ER [K-Dur 10] 10 meq PO DAILY 05/18/21 10/17/21 History Acetaminophen Tab [Tylenol] 1,000 mg PO Q4-6H PRN 10/17/21 10/17/21 History Albuterol Nebulized [Ventolin 2.5 mg PO Q4H PRN 10/17/21 10/17/21 History Nebulized] Atorvastatin [Lipitor] 10 mg PO HS 10/17/21 10/17/21 History Cholecalciferol [Vitamin D3 (25 25 mcg PO DAILY 10/17/21 10/17/21 History Mcg = 1000 Iu)] Folic Acid 1 mg PO DAILY 10/17/21 10/17/21 History Furosemide [Lasix] 20 mg PO DAILY 10/17/21 10/17/21 History Apixaban [Eliquis] 2.5 mg PO BID 30 Days #60 tablet 10/18/21 Rx Allergies Allergy/AdvReac Type Severity Reaction Status Date / Time No Known Allergies Allergy Verified 10/17/21 21:39 Physical Exam Vitals: Vital Signs Temp Pulse Pulse Resp BP BP Pulse Ox 10/18/21 08:00 123/89 10/18/21 06:43 98 17 136/90 93 L 10/18/21 02:57 113 H 16 116/73 93 L 10/18/21 01:31 98.7 F 131 H 20 107/72 92 L 10/17/21 23:00 121 H 18 107/72 10/17/21 18:08 99.0 F 91 20 125/88 95 10/17/21 16:44 20 10/17/21 16:41 98.3 F 91 20 110/80 90 L Intake and Output 10/17/21 10/18/21 10/18/21 22:59 06:59 14:59 Intake Total 63.881 Balance 63.881 Intake: Intake, IV Titration 63.881 Amount Heparin Sod,Pork in 0.45% 63.881 NaCl 25,000 unit In 0.45 % NaCl 1 250ml.bag @ 12 UNITS/KG/HR 7.62 mls/hr IV .Q24H [facility] Rx#: [id number] Other: Weight 63.503 kg 63.503 kg Alert Frail Pale NAD Oxygen Mild increased effort HR Irr Tachy Bilateral ll diminished, rhonchi R>L Eccymosis and muscle atrophy noted on all extremities. Results CBC & Chem 7: 10/18/21 15:20 10/18/21 15:20 Labs: Abnormal Lab Results - Last 24 Hours (Table) 10/17/21 10/17/21 10/17/21 Range/Units 17:34 17:34 17:34 WBC 10.9 H (3.8-10.6) k/uL RBC 3.39 L (4.30-5.90) m/uL Hgb 10.1 L (13.0-17.5) gm/dL Hct 32.6 L (39.0-53.0) % Monocytes # (Manual) 1.42 H (0-1.0) k/uL APTT 20.4 L (22.0-30.0) sec Sodium (137-145) mmol/L Chloride 89 L (98-107) mmol/L Carbon Dioxide 38 H (22-30) mmol/L BUN 41 H (9-20) mg/dL Creatinine (0.66-1.25) mg/dL Glucose 128 H (74-99) mg/dL Plasma Lactic Acid Sourav (0.7-2.0) mmol/L Calcium 7.5 L (8.4-10.2) mg/dL Magnesium 0.6 L* (1.6-2.3) mg/dL Delta Bilirubin (0.0-0.2) mg/dL Troponin I (0.000-0.034) ng/mL Total Protein (6.3-8.2) g/dL Albumin 3.3 L (3.5-5.0) g/dL Procalcitonin (0.02-0.09) ng/mL 10/17/21 10/17/21 10/17/21 Range/Units 17:34 17:34 23:41 WBC (3.8-10.6) k/uL RBC (4.30-5.90) m/uL Hgb (13.0-17.5) gm/dL Hct (39.0-53.0) % Monocytes # (Manual) (0-1.0) k/uL APTT (22.0-30.0) sec Sodium (137-145) mmol/L Chloride (98-107) mmol/L Carbon Dioxide (22-30) mmol/L BUN (9-20) mg/dL Creatinine (0.66-1.25) mg/dL Glucose (74-99) mg/dL Plasma Lactic Acid Sourav 2.4 H* (0.7-2.0) mmol/L Calcium (8.4-10.2) mg/dL Magnesium (1.6-2.3) mg/dL Delta Bilirubin (0.0-0.2) mg/dL Troponin I 0.250 H* 0.204 H* (0.000-0.034) ng/mL Total Protein (6.3-8.2) g/dL Albumin (3.5-5.0) g/dL Procalcitonin (0.02-0.09) ng/mL 10/18/21 10/18/21 10/18/21 Range/Units 03:50 03:50 03:50 WBC (3.8-10.6) k/uL RBC 2.96 L (4.30-5.90) m/uL Hgb 9.5 L (13.0-17.5) gm/dL Hct 29.0 L (39.0-53.0) % Monocytes # (Manual) (0-1.0) k/uL APTT (22.0-30.0) sec Sodium (137-145) mmol/L Chloride (98-107) mmol/L Carbon Dioxide (22-30) mmol/L BUN (9-20) mg/dL Creatinine (0.66-1.25) mg/dL Glucose (74-99) mg/dL Plasma Lactic Acid Sourav (0.7-2.0) mmol/L Calcium (8.4-10.2) mg/dL Magnesium (1.6-2.3) mg/dL Delta Bilirubin (0.0-0.2) mg/dL Troponin I 0.247 H* (0.000-0.034) ng/mL Total Protein (6.3-8.2) g/dL Albumin (3.5-5.0) g/dL Procalcitonin 0.12 H (0.02-0.09) ng/mL 10/18/21 10/18/21 10/18/21 Range/Units 03:50 03:50 09:38 WBC (3.8-10.6) k/uL RBC (4.30-5.90) m/uL Hgb (13.0-17.5) gm/dL Hct (39.0-53.0) % Monocytes # (Manual) (0-1.0) k/uL APTT 40.1 H 40.7 H (22.0-30.0) sec Sodium 134 L (137-145) mmol/L Chloride 89 L (98-107) mmol/L Carbon Dioxide 38 H (22-30) mmol/L BUN 43 H (9-20) mg/dL Creatinine 1.28 H (0.66-1.25) mg/dL Glucose 240 H (74-99) mg/dL Plasma Lactic Acid Sourav (0.7-2.0) mmol/L Calcium 7.1 L (8.4-10.2) mg/dL Magnesium 1.4 L (1.6-2.3) mg/dL Delta Bilirubin 0.3 H (0.0-0.2) mg/dL Troponin I (0.000-0.034) ng/mL Total Protein 5.7 L (6.3-8.2) g/dL Albumin 2.9 L (3.5-5.0) g/dL Procalcitonin (0.02-0.09) ng/mL Chest x-ray: report reviewed Assessment and Plan (1) History of lung cancer Current Visit: Yes Status: Acute Code(s): Z85.118 - PERSONAL HISTORY OF M ALIGNANT NEOPLASM OF BRONCHUS AND LUNG SNOMED Code(s): 039090738 (2) History of lung cancer Current Visit: Yes Status: Acute Code(s): Z85.118 - PERSONAL HISTORY OF MALIGNANT NEOPLASM OF BRONCHUS AND LUNG SNOMED Code(s): 901756397 (3) Acute pulmonary edema Current Visit: Yes Status: Acute Code(s): J81.0 - ACUTE PULMONARY EDEMA SNOMED Code(s): 70587442 (4) COPD exacerbation Current Visit: No Status: Acute Code(s): J44.1 - CHRONIC OBSTRUCTIVE PULMONARY DISEASE W (ACUTE) EXACERBATION SNOMED Code(s): 203647783 Plan: Interventional Radiology for Thoracentesis and Cytology to assess for recurrence, although in speaking with radiology no pleural fluid was identified. There was interstitial edema and scarring but nothing to pull from at this time. Will follow along in the situation of potential recurrence, although at this time acute respiratory insufficiency per pulm and primary and cardiology Physician Attest: I have completed the full history and physical and agree with above dictation, dictated as a ascribe.
--- NOTE | 2021-10-18 13:29 | ECHOF ---
Referral Reason:Repeat, elevated troponin MEASUREMENTS -------- HEIGHT: 172.7 cm WEIGHT: 63.5 kg BP: IVSd: 1.4 cm (0.6 - 1.1) LVIDd: 3.5 cm (3.9 - 5.3) LVPWd: 1.5 cm (0.6 - 1.1) IVSs: 1.7 cm LVIDs: 2.5 cm LVPWs: 2.1 cm LAESV Index (A-L): 32.83 ml/m AV maxP.55 mmHg AV meanP.05 mmHg RAP: 5.00 mmHg RVSP: 40.40 mmHg FINDINGS -------- Atrial fibrillation. This was a technically good study. The left ventricular size is normal. There is moderate concentric left ventricular hypertrophy. O verall left ventricular systolic function is normal with, an EF between 55 - 60 %. Left ventricular fillimg pressure cannot be estimated due to Atrial fibrillation. The right ventricle is normal in size. LA is midly dilated 29-33ml/m2. The right atrial size is normal. Aortic valve is trileaflet and is mildly thickened. There is mild aortic stenosis present. Peak/m felicity gradient across the Aortic Valve is 12.55mmHg / 8.05mmHg. The mitral valve is normal. The mitral valve leaflets are mildly thickened. Mild mitral annular c alcification present. Mild mitral regurgitation is present. The tricuspid valve appears structurally normal. Moderate tricuspid regurgitation present. There is mild pulmonary hypertension. The right ventricular systolic pressure, as measured by Doppler, is 40.40mmHg. There is no pulmonic regurgitation present. The aortic root size is normal. Normal inferior vena cava with normal inspiratory collapse consistent with estimated right atrial pre ssure of 5 mmHg. There is a trivial pericardial effusion present. Pleural Effusion with Fibrin. CONCLUSIONS -------- 1. The left ventricular size is normal. 2. There is moderate concentric left ventricular hypertrophy. 3. Overall left ventricular systolic function is normal with, an EF between 55 - 60 %. 4. Left ventricular fillimg pressure cannot be estimated due to Atrial fibrillation. 5. LA is midly dilated 29-33ml/m2. 6. Aortic valve is trileaflet and is mildly thickened. 7. There is mild aortic stenosis present. 8. Peak/mean gradient across the Aortic Valve is 12.55mmHg / 8.05mmHg. 9. The mitral valve leaflets are mildly thickened. 10. Mild mitral annular calcification present. 11. Mild mitral regurgitation is present. 12. Moderate tricuspid regurgitation present. 13. There is mild pulmonary hypertension. 14. The right ventricular systolic pressure, as measured by Doppler, is 40.40mmHg. 15. There is a trivial pericardial effusion present. 16. Pleural Effusion with Fibrin. METER AND SERVICE LINE INSPECTOR: Irma Nails RDCS
[2021-10-18] MEDS: SYMBICORT 160-4.5 MCG INHALER INHALATION SCH ×2 (15:15→21:34)
[2021-10-18 15:18] LABS: Glucose,Whole Blood 128 mg/dL (75-99)
[2021-10-18] MEDS ORDERED: propofoL 100 ML IV ONE (15:21)
[2021-10-18 15:43] LABS: Glucose,Whole Blood 125 mg/dL (75-99)
[2021-10-18 15:44] LABS: HCT 33.4 % (39.0-53.0); HGB 10.6 gm/dL (13.0-17.5); MCH 30.9 pg (25.0-35.0); MCHC 31.7 g/dL (31.0-37.0); MCV 97.3 fL (80.0-100.0); Mean Platelet Volume 8.4; Platelet Count 416 k/uL (150-450); RBC 3.43 m/uL (4.30-5.90); RDW 13.4 % (11.5-15.5); WBC 28.7 k/uL (3.8-10.6)
[2021-10-18] MEDS: MAGNESIUM SULFATE-D5W PMX 1 GM in DEXTROSE/WATER 1 100ML.BAG IVPB SCH ×2 (15:45→17:38)
[2021-10-18] MEDS ORDERED: NALOXONE 0.4 MG/ML 1 ML VIAL IV PRN (15:57)
[2021-10-18 15:58] LABS: Calcium 7.4 mg/dL (8.4-10.2); Magnesium 1.7 mg/dL (1.6-2.3); Total Bilirubin 1.2 mg/dL (0.2-1.3); Total Protein 5.9 g/dL (6.3-8.2)
--- NOTE | 2021-10-18 15:58 | P.EN ---
Fiona Fisher Note: Arrived on scene to find: Patient with PEA arrest, had received 1 of epi by CODE team, ROSC was achieved/ On the monitor he was having NSVT and BP was 138/86 with HR 106. He went into sustained V-tach with pulse given amino 150 cc bolus, he returned to A fib with controlled ventricular response. He was intubated by anesthesia. BP remained stable. He was emergently transferred to the ICU, Dr. Lowe approved the transfer. Chart reviewed Mg 1.4 yet to be replaced and 1 gram ordered to be given over 30 minutes, followed by another gram CXR reviewed from prior to intubation: complete opacification of right sided hali thorax with tracheal deviation to the right, likely right-sided volume loss Echo wit EF 55-60% without significant valvular disease. COPD exacerbation, Acute hypoxic respiratory failure, non small cell lung ca likely recurrent, elevated troponin not consistent with ACS. Patient with pin point pupils (after paralytic), not responsive on vent Lungs Chest rise equal, breathsound L>R, barrel chested CV: S1S2 irreg without murmur, + femoral pulse b/l Abd: soft, ND, no organomegally palpated. Dr. Dixon contacted and asked to update family. Dr. Lowe contacted by tn Labs Pending: CBC, CMP, Mg, Phos, ptt, troponin EKG- sinus rhythm with PVC, T- wave inversion with depression in V1-V2 CXR pending DX: PEA arrest - neurovascular check q2 hours given anticoagulation and recurrent cancer. if status changes consider emergent head CT. A total of 45 minutes of critical care time was spent with this complex patient.
[2021-10-18 16:06] LABS: Lymphocytes # (M) 15.79 k/uL (1.0-4.8); Neutrophils # (M) 11.77 k/uL (1.3-7.7); Neutrophils % (M) 41 %
[2021-10-18 16:07] LABS: Monocytes # (M) 1.15 k/uL (0-1.0); Nucleated Red Blood Cells 0 /100 WBC (0-0); Total Cells Counted 100
[2021-10-18 16:08] LABS: Potassium 6.7 mmol/L (3.5-5.1)
--- NOTE | 2021-10-18 16:49 | XR ---
EXAMINATION TYPE: XR chest 1V DATE OF EXAM: 10/18/2021 COMPARISON: 10/17/2021 HISTORY: Check tube placement TECHNIQUE: Single view FINDINGS: There is extensive consolidation and atelectasis in the right lung field with shift of hear t to the right side. There is nasogastric tube in the stomach. The endotracheal tube is 3.5 cm from t he marilyn. There are sternal wires. There is mild blunting left costophrenic angle. IMPRESSION: Endotracheal tube in good position. Heart and lungs are not changed. Nasogastric tube in the stomach.
[2021-10-18] MEDS ORDERED: DEXTROSE 50% SYRINGE 50 ML IVP ONE (16:51)
[2021-10-18] MEDS ORDERED: SODIUM BICARB 8.4% 50 ML SYR (1 MEQ/ML) IV ONE (16:51)
[2021-10-18] MEDS ORDERED: ALBUTEROL NEB (CONC) 2.5 MG/0.5 ML INHALATION ONE (16:51)
[2021-10-18] MEDS ORDERED: INSULIN REGULAR 100 UNIT/ML VIAL (IV) IV ONE (16:51)
[2021-10-18 17:01] LABS: ABG Base Excess 11.6 mmol/L; ABG HCO3 36 mmol/L (21-25); ABG Oxygen Saturation 98.7 % (94-97); ABG PCO2 55 mmHg (35-45); ABG PH 7.42 (7.35-7.45); ABG PO2 275 mmHg (83-108); ABG TCO2 38 mmol/L (19-24); Allen Test Performed? Yes
[2021-10-18] MEDS: NOREPINEPHRINE 4 MG in SODIUM CHLORIDE 0.9% 250 ML IV SCH ×2 (18:32→19:38)
[2021-10-18] MEDS: CHLORHEXIDINE GLUCONATE 15 ML CUP MUCOUS MEM SCH (20:27)
[2021-10-18] MEDS ORDERED: ATORVASTATIN 10 MG TAB PO SCH (21:00)
[2021-10-19 05:27] LABS: Potassium 4.1 mmol/L (3.5-5.1)
[2021-10-19 05:39] LABS: ABG Base Excess 14.9 mmol/L; ABG HCO3 38 mmol/L (21-25); ABG Oxygen Saturation 98.6 % (94-97); ABG PCO2 47 mmHg (35-45); ABG PH 7.52 (7.35-7.45); ABG PO2 200 mmHg (83-108); ABG TCO2 39 mmol/L (19-24); Allen Test Performed? Yes
[2021-10-19] MEDS: MAGNESIUM SULFATE-D5W PMX 1 GM in DEXTROSE/WATER 1 100ML.BAG IVPB SCH ×2 (05:47→06:40)
[2021-10-19 06:20] LABS: HCT 28.6 % (39.0-53.0); HGB 9.3 gm/dL (13.0-17.5); MCH 30.4 pg (25.0-35.0); MCHC 32.6 g/dL (31.0-37.0); MCV 93.4 fL (80.0-100.0); Mean Platelet Volume 9.1; Platelet Count 327 k/uL (150-450); RBC 3.06 m/uL (4.30-5.90); RDW 13.3 % (11.5-15.5); WBC 17.4 k/uL (3.8-10.6)
[2021-10-19] MEDS: PANTOPRAZOLE 40 MG TABLET PO SCH (06:40)
[2021-10-19] MEDS: NOREPINEPHRINE 4 MG in SODIUM CHLORIDE 0.9% 250 ML IV SCH (08:09)
[2021-10-19] MEDS: METOPROLOL TARTRATE 50 MG TAB PO SCH (08:11)
[2021-10-19] MEDS: MAGNESIUM OXIDE 400 MG TAB PO SCH ×2 (08:13→20:41)
[2021-10-19] MEDS: APIXABAN 2.5 MG TABLET PO SCH ×2 (08:13→20:41)
[2021-10-19] MEDS: FUROSEMIDE 10 MG/ML 4 ML VIAL IV SCH (08:14)
[2021-10-19] MEDS: POTASSIUM CHLORIDE ER 10 MEQ TAB.ER.PRT PO SCH (08:14)
[2021-10-19] MEDS: FAMOTIDINE 20 MG/2 ML VIAL IV SCH (08:14)
[2021-10-19] MEDS: CHLORHEXIDINE GLUCONATE 15 ML CUP MUCOUS MEM SCH ×2 (08:14→20:41)
[2021-10-19] MEDS: CHOLECALCIFEROL 25 MCG (1000 IU) TABLET PO SCH (08:14)
--- NOTE | 2021-10-19 08:46 | XR ---
EXAMINATION TYPE: XR chest 1V portable DATE OF EXAM: 10/19/2021 Comparison: 10/18/2021 Clinical History: 86-year-old male Tube placement Findings: ET tube tip at the level of the medial clavicular heads. NG tube courses below the diaphragm. Median sternotomy wires with aortic angioplasty ring and post-CABG changes. Volume of the right hemithorax p ersists with a extensive pleural-parenchymal opacification on the right. Small left pleural effusion with left basilar opacity persists. Impression: 1. Continued volume loss within the right hemithorax with extensive pleural parenchymal opacities, li heydi combination of pleural effusion and airspace disease. 2. Continued small left pleural effusion with adjacent atelectasis and/or consolidation.
[2021-10-19] MEDS ORDERED: CISATRACURIUM 2 MG/ML 5 ML VIAL IV ONE (09:22)
[2021-10-19] MEDS: SYMBICORT 160-4.5 MCG INHALER INHALATION SCH (09:29)
[2021-10-19] MEDS: SODIUM CHLORIDE 0.9% 1,000 ML IV SCH (09:55)
--- NOTE | 2021-10-19 10:34 | PCN ---
PROCEDURE NOTE PLACEMENT OF A LEFT SUBCLAVIAN TRIPLE-LUMEN CATHETER: PREOPERATIVE DIAGNOSIS: Administration of fluids and pressors. POSTOPERATIVE DIAGNOSIS: Administration of fluids and pressors. OPERATORS: 1. Dr. Lowe. 2. Dr. Reina. PROCEDURE DESCRIPTION: A time-out was completed verifying correct patient, procedure, site, positioning, and implant(s) or special equipment if applicable. The patient was placed in a dependent position appropriate for triple-lumen catheter placement based on the vein to be cannulated. The patient's left shoulder was prepped and draped in sterile fashion. 1% Lidocaine was used to anesthetize the surrounding skin area. A triple-lumen 9F Cordis catheter was introduced into the left subclavian vein using Seldinger technique. The catheter was threaded smoothly over the guide wire and appropriate blood return was obtained. There was good blood return from all 3 ports. Each lumen of the catheter was evacuated of air and flushed with sterile saline. The catheter was then sutured in place to the skin and a sterile dressing was applied by the nurse. Perfusion to the extremity distal to the point of catheter insertion was checked and found to be adequate. There was no immediate complication. A chest x-ray was ordered to check placement. Again, there was no immediate complication. The patient tolerated the procedure well. MMODL / IJN: [id number] /
--- NOTE | 2021-10-19 11:36 | XR ---
EXAMINATION TYPE: XR chest 1V portable DATE OF EXAM: 10/19/2021 Comparison: 10/19/2021 Clinical History: 86-year-old male central line placement Findings: ET tube is satisfactory. NG tube courses below the diaphragm. Median sternotomy wires with post-CABG changes. Left subclavian CVC tip at the cavoatrial junction. There is similar volume loss in the righ t hemithorax with extensive pleural parenchymal opacity on the right. Continued small left pleural ef fusion with retrocardiac opacity. Impression: 1. Left subclavian CVC tip at the cavoatrial junction. 2. Continued volume loss in the right hemithorax with a extensive pleural-parenchymal opacities. 3. Similar small left pleural effusion with retrocardiac atelectasis and/or consolidation.
--- NOTE | 2021-10-19 12:00 | P.PN ---
Subjective Progress Note Date: 10/19/21 Principal diagnosis: Respiratory arrest. 86-year-old white male patient follows with Dr. Hall, has a history of non- small cell lung cancer in the right lung, status post radiation treatment through [facility] and this was diagnosed in 2017, COPD, on home oxygen at 2-3 L per nasal cannula, hypertension, coronary artery disease with previous coronary artery bypass grafting, valve replacement, anxiety. Patient presented to the hospital on 10/17/2021 for evaluation of shortness of breath that had worsened over last 2 days. No history of any fever. No complaints of chest pain or palpitations. Most recently patient has been wearing 4 L of oxygen on a regular basis, he is currently up to 5 L in the emergency department, and COVID 19 PCR was negative. Chest x-ray showed consolidation and pleural fluid and volume loss in the right hemithorax that has progressed compared to his old exam from April 2021 and was consistent with progression of tumor. There is left- sided mild pulmonary interstitial edema slightly worse than old exam. Today's labs have been reviewed showing white blood cell count of 10.9, hemoglobin 10.1, INR of 1.1, sodium is 138, potassium is 4.6, chloride is 89, CO2 is 38, BUN is 41, creatinine is 1.25, lactic acid is 2.4, magnesium was 0.6, calcium 7.5, troponins were elevated at 0.250, 0.204, and 0.247. ProBNP was elevated at 17,500. [place] of the chest has been obtained and showed no sizable pleural effusion on either side. His EKG showed atrial fibrillation with evidence of septal infarct of undetermined age. Patient has been started on IV Lasix in the emergency department, nebulized bronchodilators, he was cleared dose of IV methylprednisolone and this consult was initiated. Progress note dated 10/19/2021. 86-year-old male with history of non-small cell lung cancer involving the right lung, and chronic hypoxemic respiratory failure. The patient was seen yesterday in the emergency department. Unfortunately, the patient sustained a respiratory arrest on there, and was resuscitated. The patient is now in the intensive care unit. He was intubated on October 18, after cardiopulmonary resuscitation. He remains on the ventilator, on the volume assist control mode, rate of 18, tidal volume 400, FiO2 40%, and PEEP of 5. Arterial blood gases done on the same settings, except for 60%, show a PaO2 of 200, pCO2 47, and a pH is 7.52. The patient is also on saline at KVO, propofol, which is currently on hold for a daily interruption of sedation, and norepinephrine at 6 mcg/m. We placed a central line in the patient today. The patient is now a DO NOT RESUSCITATE. White count 17.4, hemoglobin 9.3, hematocrit 28.6, and platelet count 327,000. Sodium 135, potassium 4.1, chlorides 94, CO2 34, anion gap 7, BUN 50, and creatinine 1.65. Chest x-ray shows significant volume loss on the right hemithorax, with significant pleural parenchymal abnormalities. Objective - Vital Signs Vital signs: Vital Signs Temp 98.8 F 10/19/21 08:00 Pulse 82 10/19/21 11:00 Resp 20 10/19/21 11:00 BP 93/62 10/19/21 11:00 Pulse Ox 98 10/19/21 11:00 Intake & Output 10/18/21 10/19/21 10/19/21 18:59 06:59 18:59 Intake Total 2200 787.394 243.099 Output Total 170 595 355 Balance 2030 192.394 -111.901 Weight 77.7 kg 77.7 kg Intake: IV 2200 440 100 0.9 Normal Saline @ 20mL/ 2200 440 40 hr Sodium Chloride 0.9% 1, 60 000 ml @ 20 mls/hr IV . Q24H [facility] Rx#:[id number] Intake, IV Titration 297.394 143.099 Amount Norepinephrine 4 mg In 170.290 93.716 Sodium Chloride 0.9% 250 ml @ 0.05 MCG/KG/MIN 12. 097 mls/hr IV .Q21H [facility] Rx#:[id number] propofoL 1,000 mg In 127.104 49.383 Empty Bag 1 bag @ Titrate IV .Q0M [facility] Rx#: [id number] Lipid 50 0.9 Normal Saline @ 20mL/ 50 hr Output: Urine 170 595 355 Other: Voiding Method Indwelling Catheter Indwelling Catheter Indwelling Catheter ABP, PAP, CO, CI - Last Documented Arterial Blood Pressure 115/59 - Exam No acute distress, currently sedated, with an orally placed endotracheal tube and NG tube. HEENT examination is grossly unremarkable. Neck supple. Full range of motion. No adenopathy thyromegaly or neck vein distention. Cardiovascular examination reveals regular rhythm rate. S1-S2 normal. No S3 or S4. No discernible murmur noted. Heart rate 82 bpm. Lungs reveal diffuse bilateral rhonchi. Breath sounds are generally limited in the right chest. No crackles. No wheezes. Abdomen soft bowel sounds are heard. No masses or tenderness. Extremities are intact. No cyanosis clubbing or edema. Skin is without rash or lesion. Neurologic examination cannot be assessed as the patient is currently sedated. - Labs CBC & Chem 7: 10/19/21 04:40 10/19/21 04:40 Labs: Abnormal Lab Results - Last 24 Hours (Table) 10/18/21 10/18/21 10/18/21 Range/Units 15:11 15:20 15:20 WBC 28.7 H (3.8-10.6) k/uL RBC 3.43 L (4.30-5.90) m/uL Hgb 10.6 L (13.0-17.5) gm/dL Hct 33.4 L (39.0-53.0) % Neutrophils # (Manual) 11.77 H (1.3-7.7) k/uL Lymphocytes # (Manual) 15.79 H (1.0-4.8) k/uL Monocytes # (Manual) 1.15 H (0-1.0) k/uL ABG pH (7.35-7.45) ABG pCO2 (35-45) mmHg ABG pO2 (83-108) mmHg ABG HCO3 (21-25) mmol/L ABG Total CO2 (19-24) mmol/L ABG O2 Saturation (94-97) % Sodium 135 L (137-145) mmol/L Potassium 6.7 H* (3.5-5.1) mmol/L Chloride 91 L (98-107) mmol/L Carbon Dioxide (22-30) mmol/L BUN 46 H (9-20) mg/dL Creatinine 1.59 H (0.66-1.25) mg/dL Glucose 144 H (74-99) mg/dL POC Glucose (mg/dL) 128 H (75-99) mg/dL Calcium 7.4 L (8.4-10.2) mg/dL Phosphorus 6.0 H (2.5-4.5) mg/dL AST 425 H (17-59) U/L ALT 176 H (4-49) U/L Troponin I (0.000-0.034) ng/mL Total Protein 5.9 L (6.3-8.2) g/dL Albumin 3.0 L (3.5-5.0) g/dL 10/18/21 10/18/21 10/18/21 Range/Units 15:20 15:41 16:57 WBC (3.8-10.6) k/uL RBC (4.30-5.90) m/uL Hgb (13.0-17.5) gm/dL Hct (39.0-53.0) % Neutrophils # (Manual) (1.3-7.7) k/uL Lymphocytes # (Manual) (1.0-4.8) k/uL Monocytes # (Manual) (0-1.0) k/uL ABG pH (7.35-7.45) ABG pCO2 55 H (35-45) mmHg ABG pO2 275 H (83-108) mmHg ABG HCO3 36 H (21-25) mmol/L ABG Total CO2 38 H (19-24) mmol/L ABG O2 Saturation 98.7 H (94-97) % Sodium (137-145) mmol/L Potassium (3.5-5.1) mmol/L Chloride (98-107) mmol/L Carbon Dioxide (22-30) mmol/L BUN (9-20) mg/dL Creatinine (0.66-1.25) mg/dL Glucose (74-99) mg/dL POC Glucose (mg/dL) 125 H (75-99) mg/dL Calcium (8.4-10.2) mg/dL Phosphorus (2.5-4.5) mg/dL AST (17-59) U/L ALT (4-49) U/L Troponin I 0.510 H* (0.000-0.034) ng/mL Total Protein (6.3-8.2) g/dL Albumin (3.5-5.0) g/dL 10/19/21 10/19/21 10/19/21 Range/Units 04:40 04:40 05:36 WBC 17.4 H (3.8-10.6) k/uL RBC 3.06 L (4.30-5.90) m/uL Hgb 9.3 L (13.0-17.5) gm/dL Hct 28.6 L (39.0-53.0) % Neutrophils # (Manual) (1.3-7.7) k/uL Lymphocytes # (Manual) (1.0-4.8) k/uL Monocytes # (Manual) (0-1.0) k/uL ABG pH 7.52 H (7.35-7.45) ABG pCO2 47 H (35-45) mmHg ABG pO2 200 H (83-108) mmHg ABG HCO3 38 H (21-25) mmol/L ABG Total CO2 39 H (19-24) mmol/L ABG O2 Saturation 98.6 H (94-97) % Sodium 135 L (137-145) mmol/L Potassium (3.5-5.1) mmol/L Chloride 94 L (98-107) mmol/L Carbon Dioxide 34 H (22-30) mmol/L BUN 50 H (9-20) mg/dL Creatinine 1.65 H (0.66-1.25) mg/dL Glucose 107 H (74-99) mg/dL POC Glucose (mg/dL) (75-99) mg/dL Calcium 7.0 L (8.4-10.2) mg/dL Phosphorus (2.5-4.5) mg/dL AST (17-59) U/L ALT (4-49) U/L Troponin I (0.000-0.034) ng/mL Total Protein (6.3-8.2) g/dL Albumin (3.5-5.0) g/dL Microbiology - Last 24 Hours (Table) 10/18/21 17:42 Sputum Culture - Preliminary Sputum Assessment and Plan Assessment: Acute on chronic hypoxemic respiratory failure, multifactorial, secondary to lung cancer progression, COPD exacerbation, and possibly diastolic CHF, status post respiratory arrest on October 18, requiring intubation and mechanical ventilation. History of non-small cell lung cancer, right lung, diagnosed in 2017, status post radiation treatment at [facility]. Rule out non-ST segment elevation myocardial infarction. History of chronic atrial fibrillation. History of diastolic CHF. Status post aortic valve replacement. History of CAD with previous bypass grafting. Prior history of tobacco use. Chronic hypoxemic respiratory failure. Radiation fibrosis, right lung. History of myocardial infarction. History of anxiety. Plan: Plan dated 10/19/2021. The patient sustained a respiratory arrest on in the emergency department yesterday. The patient was intubated and transferred to the intensive care unit. The patient remains on norepinephrine at 6 mcg/m. The patient is also on propofol. We will do a daily interruption of sedation today. FiO2 was reduced down to 40%, from 60%, based on the blood gas. A central line was placed today. We will start tube feeds. The patient is now a DO NOT RESUSCITATE. Medication s are reviewed. Prognosis is poor. Time with Patient: Greater than 30
[2021-10-19 12:01] LABS: Glucose,Whole Blood 125 mg/dL (75-99)
[2021-10-19] MEDS: INSULIN ASPART (NovoLOG) 100 UNIT/ML VIAL SQ SCH ×3 (12:10→23:08)
[2021-10-19] MEDS: IPRATROPIUM-ALBUTEROL 3 ML NEB INHALATION SCH ×4 (12:30→23:58)
[2021-10-19 13:25] LABS: Lymphocytes # (M) 7.31 k/uL (1.0-4.8); Monocytes # (M) 0.35 k/uL (0-1.0); Neutrophils # (M) 9.57 k/uL (1.3-7.7); Neutrophils % (M) 55 %
[2021-10-19 13:29] LABS: Blast Cells # (M) 0.17 k/uL (0); Nucleated Red Blood Cells 0 /100 WBC (0-0); Total Cells Counted 100
[2021-10-19 17:38] LABS: Glucose,Whole Blood 135 mg/dL (75-99)
[2021-10-19] MEDS: NOREPINEPHRINE 8 MG in SODIUM CHLORIDE 0.9% 250 ML IV SCH (19:39)
--- NOTE | 2021-10-19 19:51 | P.PN ---
Subjective This is a pleasant 86 years old male with past medical history of Coronary Artery Disease s/p Coronary Bypass/CABG, COPD, Hypertension, covid 12/15/20, Back Surgery, Cardiac Valve Replacement, Non-small cell or right lung cancer diagnosed in 2017 status post radiation treatment through [facility] Patient looks tired lying in bed and looks floppy he is poor historian. He says he became because of difficulty breathing and shortness of breath which was going on for the last 3 months of is getting worse over the last 5-10 days. He has cough and large amount of phlegm but he could not recognize the color. No significant chest pain. He states that he uses 4 L of oxygen at home He is not sure if he has diarrhea but he has no urinary complaints. No vomiting. No headache. No difficulty movement, weakness or numbness He denies smoking, alcohol or illicit drugs Vitas looks stable. He is saturating 95% on 4 L oxygen for nasal cannula Left showing mild leukocytosis 10.9k, , INR 1.1. BMP is unremarkable Elevated lactic acid 2.4 came back to normal at 1.4. Elevated troponin 0.25, critically low magnesium 0.6.Carona virus not detected EKG: Atrial fibrillation at [address] T changes, QTC 417 Chest x-ray: There is consolidation and pleural fluids and volume loss in the right hemithorax that has progressed compared to old exam and consistent with progression of tumor. Left side mild pulmonary interstitial edema slightly worse than old exam On admission patient received breathing treatment, aspirin, heparin drip and one-time dose of Solu-Medrol With leaf tier team consulted 10/19/2021 Yesterday after rounding patient coded and he underwent stress station per protocol and he had to be intubated and sent to the ICU. Today he still in the ICU under mechanical ventilation. With pulmonary/critical care team help with the vent management. Also he is started on levophed while metoprolol and IV Lasix was stopped After this station WBC jumped to 28 and came down to 17 today. Potassium back to normal today. Creatinine is trending up 1.2 up to 1.6. Remains on Eliquis and Pepcid. Cardiology and pulmonary service on the case Review of systems: N/a Active Medications Generic Name Dose Route Start Last Admin Trade Name Freq PRN Reason Stop Dose Admin Acetaminophen 1,000 mg 10/18/21 07:39 10/19/21 18:23 Acetaminophen Tab 500 Mg Tab PO 1,000 mg Q6H PRN Administration Fever and/ or Pain Albuterol/Ipratropium 3 ml 10/19/21 12:00 10/19/21 15:51 Ipratropium-Albuterol 3 Ml Neb INHALATION 3 ml RT-Q4H [facility] Administration Apixaban 2.5 mg 10/18/21 09:00 10/19/21 08:13 Apixaban 2.5 Mg Tablet PO 2.5 mg BID [facility]ER Administration Protocol Chlorhexidine Gluconate 15 ml 10/18/21 21:00 10/19/21 08:14 Chlorhexidine Gluconate 15 Ml Cup MUCOUS MEM 15 ml BID [facility] Administration Famotidine 20 mg 10/19/21 09:00 10/19/21 08:14 Famotidine 20 Mg/2 Ml Vial IV 20 mg DAILY [facility] Administration Propofol 1,000 mg/ IV Solution 100 mls @ 0 mls/hr 10/18/21 16:00 10/19/21 18:30 IV 40 mcg/kg/min .Q0M [facility] 18.648 mls/hr Titration Protocol Titrate Sodium Chloride 1,000 mls @ 20 mls/hr 10/19/21 09:30 10/19/21 09:55 Saline 0.9% IV 20 mls/hr .Q24H [facility] Administration Norepinephrine Bitartrate 8 mg 258 mls @ 15.035 mls/hr 10/19/21 17:30 10/19/21 19:39 / Sodium Chloride IV 0.12 mcg/kg/min .[id number] [facility] 18.042 mls/hr Titration Protocol 0.1 MCG/KG/MIN Insulin Aspart 0 unit 10/19/21 12:00 10/19/21 18:22 Insulin Aspart (Novolog) 100 Unit/Ml Vial SQ 1 unit Q6H [facility]YELR Administration Protocol Magnesium Oxide 400 mg 10/18/21 09:00 10/19/21 08:13 Magnesium Oxide 400 Mg Tab PO 400 mg BID [facility] Administration Miscellaneous Information 1 each 10/18/21 07:39 Magnesium Replacement Protocol 1 Each Misc MISCELLANE DAILY PRN Per Protocol Protocol Naloxone HCl 0.2 mg 10/18/21 15:57 Naloxone 0.4 Mg/Ml 1 Ml Vial IV Q2M PRN Opioid Reversal Pantoprazole Sodium 40 mg 10/18/21 09:00 10/19/21 06:40 Pantoprazole 40 Mg Tablet PO 40 mg DAILY@0730 [facility]ER Administration Potassium Chloride 10 meq 10/18/21 09:00 10/19/21 08:14 Potassium Chloride Er 10 Meq Tab.Er.Prt PO 10 meq DAILY [facility]ER Administration Objective - Vital Signs Vital signs: Vital Signs Temp 99.1 F 10/19/21 16:00 Pulse 94 10/19/21 16:00 Resp 18 10/19/21 16:00 BP 96/62 10/19/21 16:00 Pulse Ox 99 10/19/21 16:00 Intake & Output 10/18/21 10/19/21 10/19/21 18:59 06:59 18:59 Intake Total 2200 787.394 620.541 Output Total 170 595 695 Balance 2030 192.394 -74.459 Weight 77.7 kg 77.7 kg Intake: IV 2200 440 200 0.9 Normal Saline @ 20mL/ 2200 440 40 hr Sodium Chloride 0.9% 1, 160 000 ml @ 20 mls/hr IV . Q24H [facility] Rx#:[id number] Intake, IV Titration 297.394 240.541 Amount Norepinephrine 4 mg In 170.290 169.285 Sodium Chloride 0.9% 250 ml @ 0.05 MCG/KG/MIN 12. 097 mls/hr IV .Q21H [facility] Rx#:[id number] propofoL 1,000 mg In 127.104 71.256 Empty Bag 1 bag @ Titrate IV .Q0M [facility] Rx#: [id number] Tube Feeding 120 Lipid 50 0.9 Normal Saline @ 20mL/ 50 hr Other 60 Output: Urine 170 595 695 Other: Voiding Method Indwelling Catheter Indwelling Catheter Indwelling Catheter ABP, PAP, CO, CI - Last Documented Arterial Blood Pressure 120/62 - Exam -GENERAL: The patient is intubated and sedated, not in any acute distress. Well developed, well nourished. HEENT: Pupils are round and equally reacting to light. EOMI. No scleral icterus. No conjunctival pallor. Normocephalic, atraumatic. No pharyngeal erythema. No thyromegaly. CARDIOVASCULAR: S1 and S2 present. No murmurs, rubs, or gallops. PULMONARY: Chest is clear to auscultation, no wheezing or crackles. ABDOMEN: Soft, nontender, nondistended, normoactive bowel sounds. No palpable organomegaly. MUSCULOSKELETAL: No joint swelling or deformity. EXTREMITIES: No cyanosis, clubbing, or pedal edema. NEUROLOGICAL: Gross neurological examination did not reveal any focal deficits. SKIN: No rashes. no petechiae. - Labs CBC & Chem 7: 10/19/21 04:40 10/19/21 04:40 Labs: Abnormal Lab Results - Last 24 Hours (Table) 10/18/21 10/18/21 10/18/21 Range/Units 15:20 15:20 15:20 WBC (3.8-10.6) k/uL RBC (4.30-5.90) m/uL Hgb (13.0-17.5) gm/dL Hct (39.0-53.0) % Blast Cells % % Neutrophils # (Manual) 11.77 H (1.3-7.7) k/uL Lymphocytes # (Manual) 15.79 H (1.0-4.8) k/uL Monocytes # (Manual) 1.15 H (0-1.0) k/uL Blast Cells # (Man) (0) k/uL ABG pH (7.35-7.45) ABG pCO2 (35-45) mmHg ABG pO2 (83-108) mmHg ABG HCO3 (21-25) mmol/L ABG Total CO2 (19-24) mmol/L ABG O2 Saturation (94-97) % Sodium 135 L (137-145) mmol/L Potassium 6.7 H* (3.5-5.1) mmol/L Chloride 91 L (98-107) mmol/L Carbon Dioxide (22-30) mmol/L BUN 46 H (9-20) mg/dL Creatinine 1.59 H (0.66-1.25) mg/dL Glucose 144 H (74-99) mg/dL POC Glucose (mg/dL) (75-99) mg/dL Calcium 7.4 L (8.4-10.2) mg/dL Phosphorus 6.0 H (2.5-4.5) mg/dL AST 425 H (17-59) U/L ALT 176 H (4-49) U/L Troponin I 0.510 H* (0.000-0.034) ng/mL Total Protein 5.9 L (6.3-8.2) g/dL Albumin 3.0 L (3.5-5.0) g/dL 10/18/21 10/19/21 10/19/21 Range/Units 16:57 04:40 04:40 WBC 17.4 H (3.8-10.6) k/uL RBC 3.06 L (4.30-5.90) m/uL Hgb 9.3 L (13.0-17.5) gm/dL Hct 28.6 L (39.0-53.0) % Blast Cells % 1 H* % Neutrophils # (Manual) 9.57 H (1.3-7.7) k/uL Lymphocytes # (Manual) 7.31 H (1.0-4.8) k/uL Monocytes # (Manual) (0-1.0) k/uL Blast Cells # (Man) 0.17 H (0) k/uL ABG pH (7.35-7.45) ABG pCO2 55 H (35-45) mmHg ABG pO2 275 H (83-108) mmHg ABG HCO3 36 H (21-25) mmol/L ABG Total CO2 38 H (19-24) mmol/L ABG O2 Saturation 98.7 H (94-97) % Sodium 135 L (137-145) mmol/L Potassium (3.5-5.1) mmol/L Chloride 94 L (98-107) mmol/L Carbon Dioxide 34 H (22-30) mmol/L BUN 50 H (9-20) mg/dL Creatinine 1.65 H (0.66-1.25) mg/dL Glucose 107 H (74-99) mg/dL POC Glucose (mg/dL) (75-99) mg/dL Calcium 7.0 L (8.4-10.2) mg/dL Phosphorus (2.5-4.5) mg/dL AST (17-59) U/L ALT (4-49) U/L Troponin I (0.000-0.034) ng/mL Total Protein (6.3-8.2) g/dL Albumin (3.5-5.0) g/dL 10/19/21 10/19/21 Range/Units 05:36 11:58 WBC (3.8-10.6) k/uL RBC (4.30-5.90) m/uL Hgb (13.0-17.5) gm/dL Hct (39.0-53.0) % Blast Cells % % Neutrophils # (Manual) (1.3-7.7) k/uL Lymphocytes # (Manual) (1.0-4.8) k/uL Monocytes # (Manual) (0-1.0) k/uL Blast Cells # (Man) (0) k/uL ABG pH 7.52 H (7.35-7.45) ABG pCO2 47 H (35-45) mmHg ABG pO2 200 H (83-108) mmHg ABG HCO3 38 H (21-25) mmol/L ABG Total CO2 39 H (19-24) mmol/L ABG O2 Saturation 98.6 H (94-97) % Sodium (137-145) mmol/L Potassium (3.5-5.1) mmol/L Chloride (98-107) mmol/L Carbon Dioxide (22-30) mmol/L BUN (9-20) mg/dL Creatinine (0.66-1.25) mg/dL Glucose (74-99) mg/dL POC Glucose (mg/dL) 125 H (75-99) mg/dL Calcium (8.4-10.2) mg/dL Phosphorus (2.5-4.5) mg/dL AST (17-59) U/L ALT (4-49) U/L Troponin I (0.000-0.034) ng/mL Total Protein (6.3-8.2) g/dL Albumin (3.5-5.0) g/dL Microbiology - Last 24 Hours (Table) 10/18/21 17:42 Sputum Culture - Preliminary Sputum Assessment and Plan Assessment: Acute hypoxic respiratory failure status post intubation and mechanical ventil ation. 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 ) with recent chest x-ray showed a progression of tumor on the right side Elevated troponin, rule out cardiac causes and non-STEMI Altered mental status, most likely metabolic encephalopathy Acute COPD exacerbation Severe hypomagnesemia Chronic atrial fibrillation chronic hypoxic respiratory failure on oxygen via nasal cannula at home History of coronary artery disease status post CABG Hypertension History of Covid infection earlier this year Chronic back pain status post surgery History of heart valve replacement Plan: This is a pleasant 86 years old male who presents with progressed right lung CANCER, AND non STEMI. Continue with heparin, aspirin, cardiology consult Continue with mechanical ventilation with pulmonary/critical team on the case with help with his management Discontinue metoprolol Oncology team on the case Labs and medication were reviewed.. Continue same treatment. Continue with symptomatic treatment. Resume home medication. Monitor lytes and vitals. DVT and GI prophylaxis. Further recommendations depends on the clinical course of the patient DVT prophylaxis: heparin GI Prophylaxis: Pepcid PT/OT: Pending Prognosis is guarded
[2021-10-19 23:09] LABS: Glucose,Whole Blood 173 mg/dL (75-99)
[2021-10-20] MEDS: IPRATROPIUM-ALBUTEROL 3 ML NEB INHALATION SCH ×6 (03:37→23:44)
[2021-10-20] MEDS: NOREPINEPHRINE 8 MG in SODIUM CHLORIDE 0.9% 250 ML IV SCH ×2 (04:18→16:17)
[2021-10-20 05:12] LABS: Glucose,Whole Blood 179 mg/dL (75-99)
[2021-10-20] MEDS: INSULIN ASPART (NovoLOG) 100 UNIT/ML VIAL SQ SCH ×3 (05:16→19:55)
[2021-10-20 05:18] LABS: HCT 29.5 % (39.0-53.0); HGB 9.6 gm/dL (13.0-17.5); MCH 30.1 pg (25.0-35.0); MCHC 32.3 g/dL (31.0-37.0); MCV 93.2 fL (80.0-100.0); Mean Platelet Volume 8.8; Platelet Count 389 k/uL (150-450); RBC 3.17 m/uL (4.30-5.90); RDW 13.4 % (11.5-15.5)
[2021-10-20 05:53] LABS: ABG HCO3 36 mmol/L (21-25); ABG Oxygen Saturation 94.1 % (94-97); ABG PCO2 47 mmHg (35-45); ABG PO2 73 mmHg (83-108); ABG TCO2 38 mmol/L (19-24)
[2021-10-20 06:32] LABS: Allen Test Performed? no
[2021-10-20] MEDS: PANTOPRAZOLE 40 MG/10 ML VIAL IVP SCH ×2 (07:03→09:55)
[2021-10-20 07:21] LABS: Calcium 7.3 mg/dL (8.4-10.2); Magnesium 1.9 mg/dL (1.6-2.3)
--- NOTE | 2021-10-20 07:21 | XR ---
EXAMINATION TYPE: XR chest 1V portable DATE OF EXAM: 10/20/2021 CLINICAL HISTORY: Difficulty breathing progress study. History of lung cancer. TECHNIQUE: Single AP portable semiupright view of the chest is obtained. COMPARISON: Chest x-ray from one day earlier and older studies FINDINGS: Stable endotracheal and orogastric tubes. Stable left-sided subclavian central venous cath eter. Overlying sternal wires along with cardiac valve surgical change redemonstrated. Persistent backgroun d chronic emphysematous change with multiple tiny left pleural effusion. Persistent right-sided volum e loss with mediastinal shift. Persistent opacity along the periphery consistent with known pleural t hickening. Right basilar opacity could reflect atelectasis and/or underlying mass. Osseous structures are intact. IMPRESSION: Persistent right-sided volume loss with right-sided pleural/parenchymal opacities redemon strated. Stable small to tiny left pleural effusion. No significant change from one day earlier.
[2021-10-20] MEDS ORDERED: PANTOPRAZOLE 40 MG/10 ML VIAL IVP SCH (09:00)
[2021-10-20] MEDS: CHLORHEXIDINE GLUCONATE 15 ML CUP MUCOUS MEM SCH ×2 (09:52→21:36)
[2021-10-20] MEDS: APIXABAN 2.5 MG TABLET PO SCH ×2 (09:52→21:36)
[2021-10-20] MEDS: POTASSIUM CHLORIDE ER 10 MEQ TAB.ER.PRT PO SCH (09:52)
[2021-10-20] MEDS: MAGNESIUM OXIDE 400 MG TAB PO SCH ×2 (09:53→21:36)
[2021-10-20] MEDS: FAMOTIDINE 20 MG/2 ML VIAL IV SCH (09:53)
[2021-10-20] MEDS: SODIUM CHLORIDE 0.9% 1,000 ML IV SCH (10:11)
--- NOTE | 2021-10-20 11:29 | P.PN ---
Subjective Progress Note Date: 10/20/21 Principal diagnosis: Respiratory arrest. 86-year-old white male patient follows with Dr. Hall, has a history of non- small cell lung cancer in the right lung, status post radiation treatment through [facility] and this was diagnosed in 2017, COPD, on home oxygen at 2-3 L per nasal cannula, hypertension, coronary artery disease with previous coronary artery bypass grafting, valve replacement, anxiety. Patient presented to the hospital on 10/17/2021 for evaluation of shortness of breath that had worsened over last 2 days. No history of any fever. No complaints of chest pain or palpitations. Most recently patient has been wearing 4 L of oxygen on a regular basis, he is currently up to 5 L in the emergency department, and COVID 19 PCR was negative. Chest x-ray showed consolidation and pleural fluid and volume loss in the right hemithorax that has progressed compared to his old exam from April 2021 and was consistent with progression of tumor. There is left- sided mild pulmonary interstitial edema slightly worse than old exam. Today's labs have been reviewed showing white blood cell count of 10.9, hemoglobin 10.1, INR of 1.1, sodium is 138, potassium is 4.6, chloride is 89, CO2 is 38, BUN is 41, creatinine is 1.25, lactic acid is 2.4, magnesium was 0.6, calcium 7.5, troponins were elevated at 0.250, 0.204, and 0.247. ProBNP was elevated at 17,500. [place] of the chest has been obtained and showed no sizable pleural effusion on either side. His EKG showed atrial fibrillation with evidence of septal infarct of undetermined age. Patient has been started on IV Lasix in the emergency department, nebulized bronchodilators, he was cleared dose of IV methylprednisolone and this consult was initiated. Progress note dated 10/19/2021. 86-year-old male with history of non-small cell lung cancer involving the right lung, and chronic hypoxemic respiratory failure. The patient was seen yesterday in the emergency department. Unfortunately, the patient sustained a respiratory arrest on there, and was resuscitated. The patient is now in the intensive care unit. He was intubated on October 18, after cardiopulmonary resuscitation. He remains on the ventilator, on the volume assist control mode, rate of 18, tidal volume 400, FiO2 40%, and PEEP of 5. Arterial blood gases done on the same settings, except for 60%, show a PaO2 of 200, pCO2 47, and a pH is 7.52. The patient is also on saline at KVO, propofol, which is currently on hold for a daily interruption of sedation, and norepinephrine at 6 mcg/m. We placed a central line in the patient today. The patient is now a DO NOT RESUSCITATE. White count 17.4, hemoglobin 9.3, hematocrit 28.6, and platelet count 327,000. Sodium 135, potassium 4.1, chlorides 94, CO2 34, anion gap 7, BUN 50, and creatinine 1.65. Chest x-ray shows significant volume loss on the right hemithorax, with significant pleural parenchymal abnormalities. Progress note dated 10/20/2021. 86-year-old male with a history of non-small cell lung cancer, involving the right lung, and chronic hypoxemic respiratory failure. The patient had a respiratory arrest in the emergency room, and was resuscitated. He was transferred to the intensive care unit, and is currently in room 261. He remains on the mechanical ventilator. He is on the volume assist control mode, rate 18, tidal volume 400, FiO2 30%, and PEEP of 5. Blood gases show pO2 73, pCO2 47, and pH is 7.5. The patient is on propofol at 40 mcg/kg/m, norepinephrine at 5 mcg/m, saline at 20 mL an hour, and vital AF at 40 mL an hour, and a goal of 45. The patient will have a daily interruption of sedation today, and a spontaneous breathing trial on pressure support of 5 and CPAP of 5. White count 27,000, hemoglobin 9.6, hematocrit 29.5, and platelet count 389,000. Sodium 136, potassium 4, chlorides 95, CO2 32, anion gap 9, BUN 56, creatinine 1.67. Chest x-ray is essentially unchanged and shows persistent right-sided volume loss, with significant pleural parenchymal opacities. No significant effusion was noted on ultrasound. Objective - Vital Signs Vital signs: Vital Signs Temp 99.9 F H 10/20/21 08:00 Pulse 117 H 10/20/21 11:00 Resp 27 H 10/20/21 11:00 BP 113/70 10/20/21 03:00 Pulse Ox 96 10/20/21 11:00 Intake & Output 10/19/21 10/20/21 10/20/21 18:59 06:59 18:59 Intake Total 025.861 7799.924 407.552 Output Total 790 490 160 Balance 114.166 552.924 247.552 Weight 77.7 kg 76.9 kg Intake: IV 240 240 100 0.9 Normal Saline @ 20mL/ 40 hr Sodium Chloride 0.9% 1, 200 240 100 000 ml @ 20 mls/hr IV . Q24H [facility] Rx#:[id number] Intake, IV Titration 434.166 342.924 22.552 Amount Norepinephrine 4 mg In 290.260 Sodium Chloride 0.9% 250 ml @ 0.05 MCG/KG/MIN 12. 097 mls/hr IV .Q21H [facility] Rx#:[id number] Norepinephrine 8 mg In 167.089 22.552 Sodium Chloride 0.9% 250 ml @ 0.1 MCG/KG/MIN 15. 035 mls/hr IV .[id number] [facility] Rx#:[id number] propofoL 1,000 mg In 143.906 175.835 Empty Bag 1 bag @ Titrate IV .Q0M [facility] Rx#: [id number] Tube Feeding 170 400 255 Other 60 60 30 Output: Urine 790 490 160 Other: Voiding Method Indwelling Catheter Indwelling Catheter Indwelling Catheter ABP, PAP, CO, CI - Last Documented Arterial Blood Pressure 102/60 - Exam No acute distress, currently sedated, with an orally placed endotracheal tube and NG tube. HEENT examination is grossly unremarkable. Neck supple. Full range of motion. No adenopathy thyromegaly or neck vein distention. Cardiovascular examination reveals regular rhythm rate. S1-S2 normal. No S3 or S4. No discernible murmur noted. Heart rate 117 bpm. Lungs reveal diffuse bilateral rhonchi. Breath sounds are generally limited in the right chest. No crackles. No wheezes. Saturations are 96%. Abdomen soft bowel sounds are heard. No masses or tenderness. Extremities are intact. No cyanosis clubbing or edema. Skin is without rash or lesion. Neurologic examination cannot be assessed as the patient is currently sedated. - Labs CBC & Chem 7: 10/20/21 05:00 10/20/21 05:00 Labs: Abnormal Lab Results - Last 24 Hours (Table) 1110/19/21 10/19/21 Range/Units 04:40 11:58 17:36 WBC 17.4 H (3.8-10.6) k/uL RBC 3.06 L (4.30-5.90) m/uL Hgb 9.3 L (13.0-17.5) gm/dL Hct 28.6 L (39.0-53.0) % Blast Cells % 1 H* % Neutrophils # (Manual) 9.57 H (1.3-7.7) k/uL Lymphocytes # (Manual) 7.31 H (1.0-4.8) k/uL Blast Cells # (Man) 0.17 H (0) k/uL ABG pH (7.35-7.45) ABG pCO2 (35-45) mmHg ABG pO2 (83-108) mmHg ABG HCO3 (21-25) mmol/L ABG Total CO2 (19-24) mmol/L Sodium (137-145) mmol/L Chloride (98-107) mmol/L Carbon Dioxide (22-30) mmol/L BUN (9-20) mg/dL Creatinine (0.66-1.25) mg/dL Glucose (74-99) mg/dL POC Glucose (mg/dL) 125 H 135 H (75-99) mg/dL Calcium (8.4-10.2) mg/dL 10/19/21 10/20/21 10/20/21 Range/Units 23:07 05:00 05:00 WBC 27.0 H (3.8-10.6) k/uL RBC 3.17 L (4.30-5.90) m/uL Hgb 9.6 L (13.0-17.5) gm/dL Hct 29.5 L (39.0-53.0) % Blast Cells % % Neutrophils # (Manual) (1.3-7.7) k/uL Lymphocytes # (Manual) (1.0-4.8) k/uL Blast Cells # (Man) (0) k/uL ABG pH (7.35-7.45) ABG pCO2 (35-45) mmHg ABG pO2 (83-108) mmHg ABG HCO3 (21-25) mmol/L ABG Total CO2 (19-24) mmol/L Sodium 136 L (137-145) mmol/L Chloride 95 L (98-107) mmol/L Carbon Dioxide 32 H (22-30) mmol/L BUN 56 H (9-20) mg/dL Creatinine 1.67 H (0.66-1.25) mg/dL Glucose 177 H (74-99) mg/dL POC Glucose (mg/dL) 173 H (75-99) mg/dL Calcium 7.3 L (8.4-10.2) mg/dL 10/20/21 10/20/21 Range/Units 05:09 05:50 WBC (3.8-10.6) k/uL RBC (4.30-5.90) m/uL Hgb (13.0-17.5) gm/dL Hct (39.0-53.0) % Blast Cells % % Neutrophils # (Manual) (1.3-7.7) k/uL Lymphocytes # (Manual) (1.0-4.8) k/uL Blast Cells # (Man) (0) k/uL ABG pH 7.50 H (7.35-7.45) ABG pCO2 47 H (35-45) mmHg ABG pO2 73 L (83-108) mmHg ABG HCO3 36 H (21-25) mmol/L ABG Total CO2 38 H (19-24) mmol/L Sodium (137-145) mmol/L Chloride (98-107) mmol/L Carbon Dioxide (22-30) mmol/L BUN (9-20) mg/dL Creatinine (0.66-1.25) mg/dL Glucose (74-99) mg/dL POC Glucose (mg/dL) 179 H (75-99) mg/dL Calcium (8.4-10.2) mg/dL Microbiology - Last 24 Hours (Table) 10/18/21 17:42 Gram Stain - Preliminary Sputum Sputum Culture - Preliminary Assessment and Plan Assessment: Acute on chronic hypoxemic respiratory failure, multifactorial, secondary to lung cancer progression, COPD exacerbation, and possibly diastolic CHF, status post respiratory arrest on October 18, requiring intubation and mechanical ventilation. History of non-small cell lung cancer, right lung, diagnosed in 2017, status post radiation treatment at [facility]. Rule out non-ST segment elevation myocardial infarction. History of chronic atrial fibrillation. History of diastolic CHF. Status post aortic valve replacement. History of CAD with previous bypass grafting. Prior history of tobacco use. Chronic hypoxemic respiratory failure. Radiation fibrosis, right lung. History of myocardial infarction. History of anxiety. Plan: Plan dated 10/19/2021. The patient sustained a respiratory arrest on in the emergency department yesterday. The patient was intubated and transferred to the intensive care unit. The patient remains on norepinephrine at 6 mcg/m. The patient is also on propofol. We will do a daily interruption of sedation today. FiO2 was reduced down to 40%, from 60%, based on the blood gas. A central line was placed today. We will start tube feeds. The patient is now a DO NOT RESUSCITATE. Medications are reviewed. Prognosis is poor. Plan dated 10/20/2021. The patient currently remains on the ventilator. We will attempt a daily interruption of sedation today, and possibly a spontaneous breathing trial. The patient's chest x-ray is unchanged. Patient's medications are reviewed. X-ray and labs are all reviewed. The patient's CVP is running between 9 and 10 cm water. The patient has an art line and a central line. The patient is now a DO NOT RESUSCITATE patient. He has extensive cancer in the right chest. Prognosis is guarded. Time with Patient: Greater than 30
[2021-10-20 12:31] LABS: Glucose,Whole Blood 194 mg/dL (75-99)
[2021-10-20 19:52] LABS: Glucose,Whole Blood 107 mg/dL (75-99)
--- NOTE | 2021-10-20 21:54 | P.PN ---
Subjective This is a pleasant 86 years old male with past medical history of Coronary Artery Disease s/p Coronary Bypass/CABG, COPD, Hypertension, covid 12/15/20, Back Surgery, Cardiac Valve Replacement, Non-small cell or right lung cancer diagnosed in 2017 status post radiation treatment through [facility] Patient looks tired lying in bed and looks floppy he is poor historian. He says he became because of difficulty breathing and shortness of breath which was going on for the last 3 months of is getting worse over the last 5-10 days. He has cough and large amount of phlegm but he could not recognize the color. No significant chest pain. He states that he uses 4 L of oxygen at home He is not sure if he has diarrhea but he has no urinary complaints. No vomiting. No headache. No difficulty movement, weakness or numbness He denies smoking, alcohol or illicit drugs Vitas looks stable. He is saturating 95% on 4 L oxygen for nasal cannula Left showing mild leukocytosis 10.9k, , INR 1.1. BMP is unremarkable Elevated lactic acid 2.4 came back to normal at 1.4. Elevated troponin 0.25, critically low magnesium 0.6.Carona virus not detected EKG: Atrial fibrillation at [address] T changes, QTC 417 Chest x-ray: There is consolidation and pleural fluids and volume loss in the right hemithorax that has progressed compared to old exam and consistent with progression of tumor. Left side mild pulmonary interstitial edema slightly worse than old exam On admission patient received breathing treatment, aspirin, heparin drip and one-time dose of Solu-Medrol With fisher[employer] chief team consulted 10/19/2021 Yesterday after rounding patient coded and he underwent stress station per protocol and he had to be intubated and sent to the ICU. Today he still in the ICU under mechanical ventilation. With pulmonary/critical care team help with the vent management. Also he is started on levophed while metoprolol and IV Lasix was stopped After this station WBC jumped to 28 and came down to 17 today. Potassium back to normal today. Creatinine is trending up 1.2 up to 1.6. Remains on Eliquis and Pepcid. Cardiology and pulmonary service on the case 10/20/2021 Patient remains in the ICU intubated and on mechanical ventilation with pulmonary/critical care team on the case. This morning he was still on levophed at 0.08 and later on lowered to 0.01 mcg/kg/min. Vitals still showing tachycardia, tachypnea and stable blood pressure from yesterday. Creatinine 1.6 slightly trending up, while WBC is at 17-27K area at potassium improved. Chest x-ray: Distant right-sided volume loss with right-sided pleural/parenchymal opacities redemonstrated. Stable small to tiny left pleural effusion. No significant change from one day earlier He Is on Eliquis, Levophed per pulmonary and critical care team Objective - Vital Signs Vital signs: Vital Signs Temp 99.9 F H 10/20/21 08:00 Pulse 117 H 10/20/21 11:00 Resp 27 H 10/20/21 11:00 BP 113/70 10/20/21 03:00 Pulse Ox 96 10/20/21 11:00 Intake & Output 10/19/21 10/20/21 10/20/21 18:59 06:59 18:59 Intake Total 347.379 6200.924 407.552 Output Total 790 490 160 Balance 114.166 552.924 247.552 Weight 77.7 kg 76.9 kg Intake: IV 240 240 100 0.9 Normal Saline @ 20mL/ 40 hr Sodium Chloride 0.9% 1, 200 240 100 000 ml @ 20 mls/hr IV . Q24H [facility] Rx#:[id number] Intake, IV Titration 434.166 342.924 22.552 Amount Norepinephrine 4 mg In 290.260 Sodium Chloride 0.9% 250 ml @ 0.05 MCG/KG/MIN 12. 097 mls/hr IV .Q21H [facility] Rx#:[id number] Norepinephrine 8 mg In 167.089 22.552 Sodium Chloride 0.9% 250 ml @ 0.1 MCG/KG/MIN 15. 035 mls/hr IV .[id number] [facility] Rx#:[id number] propofoL 1,000 mg In 143.906 175.835 Empty Bag 1 bag @ Titrate IV .Q0M [facility] Rx#: [id number] Tube Feeding 170 400 255 Other 60 60 30 Output: Urine 790 490 160 Other: Voiding Method Indwelling Catheter Indwelling Catheter Indwelling Catheter ABP, PAP, CO, CI - Last Documented Arterial Blood Pressure 102/60 - Exam -GENERAL: The patient is intubated and sedated, not in any acute distress. Well developed, well nourished. HEENT: Pupils are round and equally reacting to light. EOMI. No scleral icterus. No conjunctival pallor. Normocephalic, atraumatic. No pharyngeal erythema. No thyromegaly. CARDIOVASCULAR: S1 and S2 present. No murmurs, rubs, or gallops. PULMONARY: Chest is clear to auscultation, no wheezing or crackles. ABDOMEN: Soft, nontender, nondistended, normoactive bowel sounds. No palpable organomegaly. MUSCULOSKELETAL: No joint swelling or deformity. EXTREMITIES: No cyanosis, clubbing, or pedal edema. NEUROLOGICAL: Gross neurological examination did not reveal any focal deficits. SKIN: No rashes. no petechiae. - Labs CBC & Chem 7: 10/20/21 05:00 10/20/21 05:00 Labs: Abnormal Lab Results - Last 24 Hours (Table) 10/19/21 10/19/21 10/19/21 Range/Units 04:40 11:58 17:36 WBC 17.4 H (3.8-10.6) k/uL RBC 3.06 L (4.30-5.90) m/uL Hgb 9.3 L (13.0-17.5) gm/dL Hct 28.6 L (39.0-53.0) % Blast Cells % 1 H* % Neutrophils # (Manual) 9.57 H (1.3-7.7) k/uL Lymphocytes # (Manual) 7.31 H (1.0-4.8) k/uL Blast Cells # (Man) 0.17 H (0) k/uL ABG pH (7.35-7.45) ABG pCO2 (35-45) mmHg ABG pO2 (83-108) mmHg ABG HCO3 (21-25) mmol/L ABG Total CO2 (19-24) mmol/L Sodium (137-145) mmol/L Chloride (98-107) mmol/L Carbon Dioxide (22-30) mmol/L BUN (9-20) mg/dL Creatinine (0.66-1.25) mg/dL Glucose (74-99) mg/dL POC Glucose (mg/dL) 125 H 135 H (75-99) mg/dL Calcium (8.4-10.2) mg/dL 10/19/21 10/20/21 10/20/21 Range/Units 23:07 05:00 05:00 WBC 27.0 H (3.8-10.6) k/uL RBC 3.17 L (4.30-5.90) m/uL Hgb 9.6 L (13.0-17.5) gm/dL Hct 29.5 L (39.0-53.0) % Blast Cells % % Neutrophils # (Manual) (1.3-7.7) k/uL Lymphocytes # (Manual) (1.0-4.8) k/uL Blast Cells # (Man) (0) k/uL ABG pH (7.35-7.45) ABG pCO2 (35-45) mmHg ABG pO2 (83-108) mmHg ABG HCO3 (21-25) mmol/L ABG Total CO2 (19-24) mmol/L Sodium 136 L (137-145) mmol/L Chloride 95 L (98-107) mmol/L Carbon Dioxide 32 H (22-30) mmol/L BUN 56 H (9-20) mg/dL Creatinine 1.67 H (0.66-1.25) mg/dL Glucose 177 H (74-99) mg/dL POC Glucose (mg/dL) 173 H (75-99) mg/dL Calcium 7.3 L (8.4-10.2) mg/dL 10/20/21 10/20/21 Range/Units 05:09 05:50 WBC (3.8-10.6) k/uL RBC (4.30-5.90) m/uL Hgb (13.0-17.5) gm/dL Hct (39.0-53.0) % Blast Cells % % Neutrophils # (Manual) (1.3-7.7) k/uL Lymphocytes # (Manual) (1.0-4.8) k/uL Blast Cells # (Man) (0) k/uL ABG pH 7.50 H (7.35-7.45) ABG pCO2 47 H (35-45) mmHg ABG pO2 73 L (83-108) mmHg ABG HCO3 36 H (21-25) mmol/L ABG Total CO2 38 H (19-24) mmol/L Sodium (137-145) mmol/L Chloride (98-107) mmol/L Carbon Dioxide (22-30) mmol/L BUN (9-20) mg/dL Creatinine (0.66-1.25) mg/dL Glucose (74-99) mg/dL POC Glucose (mg/dL) 179 H (75-99) mg/dL Calcium (8.4-10.2) mg/dL Microbiology - Last 24 Hours (Table) 10/18/21 17:42 Gram Stain - Preliminary Sputum Sputum Culture - Preliminary Assessment and Plan Assessment: Acute hypoxic respiratory failure status post intubation and mechanical ventilation. 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 ) with recent chest x-ray showed a progression of tumor on the right side Elevated troponin, rule out cardiac causes and non-STEMI Altered mental status, most likely metabolic encephalopathy Acute COPD exacerbation Severe hypomagnesemia Chronic atrial fibrillation chronic hypoxic respiratory failure on oxygen via nasal cannula at home History of coronary artery disease status post CABG Hypertension History of Covid infection earlier this year Chronic back pain status post surgery History of heart valve replacement Plan: This is a pleasant 86 years old male who presents with progressed right lung CANCER, AND non STEMI. Continue with heparin, aspirin, cardiology consult Continue with mechanical ventilation with pulmonary/critical team on the case with help with his management Discontinue metoprolol Oncology team on the case Labs and medication were reviewed.. Continue same treatment. Continue with symptomatic treatment. Resume home medication. Monitor lytes and vitals. DVT and GI prophylaxis. Further recommendations depends on the clinical course of the patient DVT prophylaxis: heparin GI Prophylaxis: Pepcid PT/OT: Pending Prognosis is guarded
[2021-10-21 00:21] LABS: Glucose,Whole Blood 105 mg/dL (75-99)
[2021-10-21] MEDS: INSULIN ASPART (NovoLOG) 100 UNIT/ML VIAL SQ SCH ×4 (02:44→18:44)
[2021-10-21] MEDS: IPRATROPIUM-ALBUTEROL 3 ML NEB INHALATION SCH ×6 (03:29→23:40)
[2021-10-21] MEDS: NOREPINEPHRINE 8 MG in SODIUM CHLORIDE 0.9% 250 ML IV SCH ×3 (04:38→22:05)
[2021-10-21 05:23] LABS: Calcium 7.6 mg/dL (8.4-10.2); Potassium 4.2 mmol/L (3.5-5.1)
[2021-10-21 06:12] LABS: ABG Base Excess 10.4 mmol/L; ABG HCO3 34 mmol/L (21-25); ABG Oxygen Saturation 94.2 % (94-97); ABG PCO2 50 mmHg (35-45); ABG PH 7.45 (7.35-7.45); ABG PO2 77 mmHg (83-108); ABG TCO2 36 mmol/L (19-24); Allen Test Performed? Yes
[2021-10-21 06:17] LABS: HCT 32.8 % (39.0-53.0); HGB 10.3 gm/dL (13.0-17.5); MCH 30.3 pg (25.0-35.0); MCHC 31.5 g/dL (31.0-37.0); MCV 96.3 fL (80.0-100.0); Mean Platelet Volume 8.8; Platelet Count 370 k/uL (150-450); RBC 3.41 m/uL (4.30-5.90); RDW 12.8 % (11.5-15.5); WBC 32.2 k/uL (3.8-10.6)
[2021-10-21] MEDS: CHLORHEXIDINE GLUCONATE 15 ML CUP MUCOUS MEM SCH ×2 (08:08→22:06)
[2021-10-21] MEDS: PANTOPRAZOLE 40 MG/10 ML VIAL IVP SCH (08:08)
[2021-10-21] MEDS: SODIUM CHLORIDE 0.9% 1,000 ML IV SCH (08:09)
[2021-10-21] MEDS: POTASSIUM CHLORIDE ER 10 MEQ TAB.ER.PRT PO SCH (08:09)
[2021-10-21] MEDS: APIXABAN 2.5 MG TABLET PO SCH ×2 (08:09→22:05)
[2021-10-21] MEDS: MAGNESIUM OXIDE 400 MG TAB PO SCH ×2 (08:09→22:05)
[2021-10-21] MEDS: FAMOTIDINE 20 MG/2 ML VIAL IV SCH (08:09)
--- NOTE | 2021-10-21 08:11 | XR ---
EXAMINATION TYPE: XR chest 1V portable DATE OF EXAM: 10/21/2021 CLINICAL HISTORY: Difficulty breathing progress study. TECHNIQUE: Single AP portable semiupright view of the chest is obtained. COMPARISON: Chest x-ray from one day earlier and older studies. FINDINGS: Stable endotracheal and orogastric tubes. Stable left-sided subclavian central venous cath eter. Overlying sternal wires along with cardiac valve surgical change redemonstrated. Persistent backgroun d chronic emphysematous change with small to tiny left pleural effusion. Persistent right-sided volum e loss with mediastinal shift. Persistent opacity along the periphery consistent with known pleural t hickening. Persistent diffuse right lung opacity including more central basilar opacity consistent wi th known mass. Left lung remains clear. Osseous structures are intact. IMPRESSION: Persistent right-sided volume loss with right-sided pleural/parenchymal opacities redemon strated. Stable small to tiny left pleural effusion. No significant change from one day earlier.
[2021-10-21 09:02] LABS: Band Neutrophils % 4 %; Basophils # (M) 0.32 k/uL (0-0.2); Lymphocytes # (M) 13.85 k/uL (1.0-4.8); Monocytes # (M) 1.29 k/uL (0-1.0); Neutrophils % (M) 50 %; Nucleated Red Blood Cells 0 /100 WBC (0-0); Total Cells Counted 200
[2021-10-21 10:04] VITALS: BMI 25.9
--- NOTE | 2021-10-21 10:10 | P.PN ---
Subjective Patient remains intubated He is on norepinephrine His A. fib rates are elevated His blood pressure is borderline low despite norepinephrine drip I spoke to the nurse and we will start him on IV amiodarone drip The 150 mrem bolus will be given slowly over an hour to avoid hypotension Unable to give him Cardizem or any other medications for adequate rate control Labs are reviewed creatinine is elevated 2.16 BUN 64 Sodium 137 potassium 4.2 Chest x-ray shows persistent right-sided volume loss with right-sided testes Impression Non-small cell lung cancer of the right lung Acute on chronic hypoxemic respiratory failure Currently intubated, on a mechanical ventilator A. fib with RVR Hypertensive Plan Start amiodarone IV prognosis poor Objective - Vital Signs Vital signs: Vital Signs Temp 98.6 F 10/21/21 08:00 Pulse 134 H 10/21/21 08:00 Resp 30 H 10/21/21 08:00 BP 129/77 10/21/21 07:15 Pulse Ox 94 L 10/21/21 08:00 Intake & Output 10/20/21 10/21/21 10/21/21 18:59 06:59 18:59 Intake Total 862.269 670.822 95 Output Total 445 345 185 Balance 417.269 325.822 -90 Weight 77.4 kg 77.4 kg Intake: IV 240 180 20 Sodium Chloride 0.9% 1, 240 180 20 000 ml @ 20 mls/hr IV . Q24H [facility] Rx#:[id number] Intake, IV Titration 217.269 445.822 Amount Norepinephrine 8 mg In 133.232 246.775 Sodium Chloride 0.9% 250 ml @ 0.1 MCG/KG/MIN 15. 035 mls/hr IV .[id number] [facility] Rx#:[id number] propofoL 1,000 mg In 84.037 199.047 Empty Bag 1 bag @ Titrate IV .Q0M [facility] Rx#: [id number] Tube Feeding 345 45 45 Other 60 30 Output: Urine 445 345 185 Other: Voiding Method Indwelling Catheter Indwelling Catheter ABP, PAP, CO, CI - Last Documented Arterial Blood Pressure 103/66 - Labs CBC & Chem 7: 10/21/21 04:43 10/21/21 04:43 Labs: Abnormal Lab Results - Last 24 Hours (Table) 10/20/21 10/20/21 10/21/21 Range/Units 12:29 19:51 00:19 WBC (3.8-10.6) k/uL RBC (4.30-5.90) m/uL Hgb (13.0-17.5) gm/dL Hct (39.0-53.0) % Neutrophils # (Manual) (1.3-7.7) k/uL Lymphocytes # (Manual) (1.0-4.8) k/uL Monocytes # (Manual) (0-1.0) k/uL Basophils # (Manual) (0-0.2) k/uL ABG pCO2 (35-45) mmHg ABG pO2 (83-108) mmHg ABG HCO3 (21-25) mmol/L ABG Total CO2 (19-24) mmol/L Chloride (98-107) mmol/L Carbon Dioxide (22-30) mmol/L BUN (9-20) mg/dL Creatinine (0.66-1.25) mg/dL Glucose (74-99) mg/dL POC Glucose (mg/dL) 194 H 107 H 105 H (75-99) mg/dL Calcium (8.4-10.2) mg/dL 10/21/21 10/21/21 10/21/21 Range/Units 04:43 04:43 06:08 WBC 32.2 H (3.8-10.6) k/uL RBC 3.41 L (4.30-5.90) m/uL Hgb 10.3 L (13.0-17.5) gm/dL Hct 32.8 L (39.0-53.0) % Neutrophils # (Manual) 17.30 H (1.3-7.7) k/uL Lymphocytes # (Manual) 13.85 H (1.0-4.8) k/uL Monocytes # (Manual) 1.29 H (0-1.0) k/uL Basophils # (Manual) 0.32 H (0-0.2) k/uL ABG pCO2 50 H (35-45) mmHg ABG pO2 77 L (83-108) mmHg ABG HCO3 34 H (21-25) mmol/L ABG Total CO2 36 H (19-24) mmol/L Chloride 96 L (98-107) mmol/L Carbon Dioxide 32 H (22-30) mmol/L BUN 64 H (9-20) mg/dL Creatinine 2.16 H (0.66-1.25) mg/dL Glucose 135 H (74-99) mg/dL POC Glucose (mg/dL) (75-99) mg/dL Calcium 7.6 L (8.4-10.2) mg/dL Microbiology - Last 24 Hours (Table) 10/18/21 17:42 Gram Stain - Final Sputum Sputum Culture - Final
[2021-10-21 11:29] LABS: Glucose,Whole Blood 163 mg/dL (75-99)
--- NOTE | 2021-10-21 11:48 | XR ---
EXAMINATION TYPE: XR chest 1V portable DATE OF EXAM: 10/21/2021 CLINICAL HISTORY: OG tube placement. TECHNIQUE: Single AP portable semiupright view of the chest is obtained. COMPARISON: Chest x-ray from earlier today and older studies FINDINGS: Stable endotracheal tube. Stable left-sided subclavian central venous catheter. Orogastric tube slightly advanced with side port farther from diaphragmatic hiatus and tip outside the field of view current study. Overlying sternal wires along with cardiac valve surgical change redemonstrated. Persistent backgroun d chronic emphysematous change with small to tiny left pleural effusion. Persistent right-sided volum e loss with mediastinal shift. Persistent opacity along the periphery consistent with known pleural t hickening. Persistent diffuse right lung opacity including more central basilar opacity consistent wi th known mass. Left lung remains clear. Osseous structures are intact. IMPRESSION: Persistent right-sided volume loss with right-sided pleural/parenchymal opacities redemon strated. Stable small to tiny left pleural effusion. Interval advancement of orogastric tube.
--- NOTE | 2021-10-21 14:18 | P.PN ---
Subjective Progress Note Date: 10/21/21 Principal diagnosis: Respiratory arrest. 86-year-old white male patient follows with Dr. 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 Patient presented to the hospital on 10/17/2021 for evaluation of shortness of breath that had worsened over last 2 days. No history of any fever. No complaints of chest pain or palpitations. Most recently patient has been wearing 4 L of oxygen on a regular basis, he is currently up to 5 L in the emergency department, and COVID 19 PCR was negative. Chest x-ray showed consolidation and pleural fluid and volume loss in the right hemithorax that has progressed compared to his old exam from April 2021 and was consistent with progression of tumor. There is left- sided mild pulmonary interstitial edema slightly worse than old exam. Today's labs have been reviewed showing white blood cell count of 10.9, hemoglobin 10.1, INR of 1.1, sodium is 138, potassium is 4.6, chloride is 89, CO2 is 38, BUN is 41, creatinine is 1.25, lactic acid is 2.4, magnesium was 0.6, calcium 7.5, troponins were elevated at 0.250, 0.204, and 0.247. ProBNP was elevated at 17,500. [place] of the chest has been obtained and showed no sizable pleural effusion on either side. His EKG showed atrial fibrillation with evidence of septal infarct of undetermined age. Patient has been started on IV Lasix in the emergency department, nebulized bronchodilators, he was cleared dose of IV methylprednisolone and this consult was initiated. Progress note dated 10/19/2021. 86-year-old male with history of non-small cell lung cancer involving the right lung, and chronic hypoxemic respiratory failure. The patient was seen yesterday in the emergency department. Unfortunately, the patient sustained a respiratory arrest on there, and was resuscitated. The patient is now in the intensive care unit. He was intubated on October 18, after cardiopulmonary resuscitation. He remains on the ventilator, on the volume assist control mode, rate of 18, tidal volume 400, FiO2 40%, and PEEP of 5. Arterial blood gases done on the same settings, except for 60%, show a PaO2 of 200, pCO2 47, and a pH is 7.52. The patient is also on saline at KVO, propofol, which is currently on hold for a daily interruption of sedation, and norepinephrine at 6 mcg/m. We placed a central line in the patient today. The patient is now a DO NOT RESUSCITATE. White count 17.4, hemoglobin 9.3, hematocrit 28.6, and platelet count 327,000. Sodium 135, potassium 4.1, chlorides 94, CO2 34, anion gap 7, BUN 50, and creatinine 1.65. Chest x-ray shows significant volume loss on the right hemithorax, with significant pleural parenchymal abnormalities. Progress note dated 10/20/2021. 86-year-old male with a history of non-small cell lung cancer, involving the right lung, and chronic hypoxemic respiratory failure. The patient had a respiratory arrest in the emergency room, and was resuscitated. He was transferred to the intensive care unit, and is currently in room 261. He remains on the mechanical ventilator. He is on the volume assist control mode, rate 18, tidal volume 400, FiO2 30%, and PEEP of 5. Blood gases show pO2 73, pCO2 47, and pH is 7.5. The patient is on propofol at 40 mcg/kg/m, norepinephrine at 5 mcg/m, saline at 20 mL an hour, and vital AF at 40 mL an hour, and a goal of 45. The patient will have a daily interruption of sedation today, and a spontaneous breathing trial on pressure support of 5 and CPAP of 5. White count 27,000, hemoglobin 9.6, hematocrit 29.5, and platelet count 389,000. Sodium 136, potassium 4, chlorides 95, CO2 32, anion gap 9, BUN 56, creatinine 1.67. Chest x-ray is essentially unchanged and shows persistent right-sided volume loss, with significant pleural parenchymal opacities. No significant effusion was noted on ultrasound. Progress note dated 10/21/2021. 86-year-old male with a history of non-small cell lung cancer, involving the right lung, and chronic hypoxemic respiratory failure. The patient had a respiratory arrest in the emergency department, and was resuscitated. He was transferred to the intensive care unit, and is currently in room 261. The patient remains on the mechanical ventilator. He is on the volume assist control mode, rate 18, tidal volume 400, FiO2 30%, and PEEP of 5. Blood gases show a PaO2 of 77, pCO2 of 50, and pH is 7.45. The patient's on saline at 20 mL an hour, propofol at 40 mcg/kg/m, and norepinephrine at 12 mcg/m. The patient's getting vital AF at 45 mL an hour, which is goal. Yesterday, the patient a spontaneous breathing trial but did very poorly. This is after a daily inte rruption of sedation. White count 32.2, hemoglobin 10.3, hematocrit 32.8, with a normal platelet count. Sodium 137, potassium 4.2, chlorides 96, and CO2 32. Anion gap is 9. BUN 64, creatinine 2.16. Chest x-ray shows persistent right- sided volume loss, with right-sided pleural parenchymal opacities. There is a small left pleural effusion. Objective - Vital Signs Vital signs: Vital Signs Temp 98.6 F 10/21/21 08:00 Pulse 134 H 10/21/21 08:00 Resp 30 H 10/21/21 08:00 BP 129/77 10/21/21 07:15 Pulse Ox 94 L 10/21/21 08:00 Intake & Output 10/20/21 10/21/21 10/21/21 18:59 06:59 18:59 Intake Total 862.269 670.822 195 Output Total 445 345 185 Balance 417.269 325.822 10 Weight 77.4 kg 77.4 kg Intake: IV 240 180 20 Sodium Chloride 0.9% 1, 240 180 20 000 ml @ 20 mls/hr IV . Q24H [facility]YL[facility] Rx#:[id number] Intake, IV Titration 217.269 445.822 100 Amount Norepinephrine 8 mg In 133.232 246.775 Sodium Chloride 0.9% 250 ml @ 0.1 MCG/KG/MIN 15. 035 mls/hr IV .[id number] TYLER Rx#:[id number] propofoL 1,000 mg In 84.037 199.047 100 Empty Bag 1 bag @ Titrate IV .Q0M TYLER Rx#: [id number] Tube Feeding 345 45 45 Other 60 30 Output: Urine 445 345 185 Other: Voiding Method Indwelling Catheter Indwelling Catheter ABP, PAP, CO, CI - Last Documented Arterial Blood Pressure 103/66 - Exam No acute distress, currently sedated, with an orally placed endotracheal tube and NG tube. HEENT examination is grossly unremarkable. Neck supple. Full range of motion. No adenopathy thyromegaly or neck vein distention. Cardiovascular examination reveals regular rhythm rate. S1-S2 normal. No S3 or S4. No discernible murmur noted. Heart rate 134 bpm. Lungs reveal diffuse bilateral rhonchi. Breath sounds are generally limited in the right chest. No crackles. No wheezes. Saturations are 94%. Abdomen soft bowel sounds are heard. No masses or tenderness. Extremities are intact. No cyanosis clubbing or edema. Skin is without rash or lesion. Neurologic examination cannot be assessed as the patient is currently sedated. - Labs CBC & Chem 7: 10/21/21 04:43 10/21/21 04:43 Labs: Abnormal Lab Results - Last 24 Hours (Table) 10/20/21 10/21/21 10/21/21 Range/Units 19:51 00:19 04:43 WBC 32.2 H (3.8-10.6) k/uL RBC 3.41 L (4.30-5.90) m/uL Hgb 10.3 L (13.0-17.5) gm/dL Hct 32.8 L (39.0-53.0) % Neutrophils # (Manual) 17.30 H (1.3-7.7) k/uL Lymphocytes # (Manual) 13.85 H (1.0-4.8) k/uL Monocytes # (Manual) 1.29 H (0-1.0) k/uL Basophils # (Manual) 0.32 H (0-0.2) k/uL ABG pCO2 (35-45) mmHg ABG pO2 (83-108) mmHg ABG HCO3 (21-25) mmol/L ABG Total CO2 (19-24) mmol/L Chloride (98-107) mmol/L Carbon Dioxide (22-30) mmol/L BUN (9-20) mg/dL Creatinine (0.66-1.25) mg/dL Glucose (74-99) mg/dL POC Glucose (mg/dL) 107 H 105 H (75-99) mg/dL Calcium (8.4-10.2) mg/dL 11/10/21/21 10/21/21 Range/Units 04:43 06:08 11:27 WBC (3.8-10.6) k/uL RBC (4.30-5.90) m/uL Hgb (13.0-17.5) gm/dL Hct (39.0-53.0) % Neutrophils # (Manual) (1.3-7.7) k/uL Lymphocytes # (Manual) (1.0-4.8) k/uL Monocytes # (Manual) (0-1.0) k/uL Basophils # (Manual) (0-0.2) k/uL ABG pCO2 50 H (35-45) mmHg ABG pO2 77 L (83-108) mmHg ABG HCO3 34 H (21-25) mmol/L ABG Total CO2 36 H (19-24) mmol/L Chloride 96 L (98-107) mmol/L Carbon Dioxide 32 H (22-30) mmol/L BUN 64 H (9-20) mg/dL Creatinine 2.16 H (0.66-1.25) mg/dL Glucose 135 H (74-99) mg/dL POC Glucose (mg/dL) 163 H (75-99) mg/dL Calcium 7.6 L (8.4-10.2) mg/dL Microbiology - Last 24 Hours (Table) 10/18/21 17:42 Gram Stain - Final Sputum Sputum Culture - Final Assessment and Plan Assessment: Acute on chronic hypoxemic respiratory failure, multifactorial, secondary to lung cancer progression, COPD exacerbation, and possibly diastolic CHF, status post respiratory arrest on October 18, requiring intubation and mechanical ventilation. History of non-small cell lung cancer, right lung, diagnosed in 2017, status post radiation treatment at [facility]. Rule out non-ST segment elevation myocardial infarction. History of chronic atrial fibrillation. History of diastolic CHF. Status post aortic valve replacement. History of CAD with previous bypass grafting. Prior history of tobacco use. Chronic hypoxemic respiratory failure. Radiation fibrosis, right lung. History of myocardial infarction. History of anxiety. Plan: Plan dated 10/19/2021. The patient sustained a respiratory arrest on in the emergency department y . The patient was intubated and transferred to the intensive care unit. The patient remains on norepinephrine at 6 mcg/m. The patient is also on propofol. We will do a daily interruption of sedation today. FiO2 was reduced down to 40%, from 60%, based on the blood gas. A central line was placed today. We will start tube feeds. The patient is now a DO NOT RESUSCITATE. Medications are reviewed. Prognosis is poor. Plan dated 10/20/2021. The patient currently remains on the ventilator. We will attempt a daily interruption of sedation today, and possibly a spontaneous breathing trial. The patient's chest x-ray is unchanged. Patient's medications are reviewed. X-ray and labs are all reviewed. The patient's CVP is running between 9 and 10 cm water. The patient has an art line and a central line. The patient is now a DO NOT RESUSCITATE patient. He has extensive cancer in the right chest. Prognosis is guarded. Plan dated 10/21/2021. Currently, the patient's doing poorly. I had the opportunity to speak to his son. The son is going to talk to other family members. There is a chance, the patient will be made comfort measures only tomorrow. The patient did very poorly with a spontaneous breathing trial yesterday. Remains on propofol at 40 mcg/kg/m, and norepinephrine at 12 mcg/min. He remains on mechanical ventilator. The son I spoke to was Lev. Lev has a phone number which was [phone]. We will continue to follow and make recommendations were appropriate. His overall prognosis is very poor. Time with Patient: Greater than 30
[2021-10-21] MEDS ORDERED: AMIODARONE IN DEXTROSE,ISO-OSM 360 MG/200 ML PLAST..BAG IV ONE (15:00)
[2021-10-21] MEDS ORDERED: AMIODARONE IN DEXTROSE,ISO-OSM 150 MG/100 ML PLAST..BAG IV ONE (15:00)
[2021-10-21] MEDS ORDERED: DEXTROSE 5% IN WATER 100 ML with AMIODARONE 150 MG IV ONE (15:00)
[2021-10-21] MEDS ORDERED: AMIODARONE 360 MG in DEXTROSE 5% IN WATER 200 ML IV ONE ×2 (16:01)
[2021-10-21 18:03] LABS: Glucose,Whole Blood 168 mg/dL (75-99)
--- NOTE | 2021-10-21 19:54 | P.PN ---
Subjective This is a pleasant 86 years old male with past medical history of Coronary Artery Disease s/p Coronary Bypass/CABG, COPD, Hypertension, covid 12/15/20, Back Surgery, Cardiac Valve Replacement, Non-small cell or right lung cancer diagnosed in 2017 status post radiation treatment through [facility] Patient looks tired lying in bed and looks floppy he is poor historian. He says he became because of difficulty breathing and shortness of breath which was going on for the last 3 months of is getting worse over the last 5-10 days. He has cough and large amount of phlegm but he could not recognize the color. No significant chest pain. He states that he uses 4 L of oxygen at home He is not sure if he has diarrhea but he has no urinary complaints. No vomiting. No headache. No difficulty movement, weakness or numbness He denies smoking, alcohol or illicit drugs Vitas looks stable. He is saturating 95% on 4 L oxygen for nasal cannula Left showing mild leukocytosis 10.9k, , INR 1.1. BMP is unremarkable Elevated lactic acid 2.4 came back to normal at 1.4. Elevated troponin 0.25, critically low magnesium 0.6.Carona virus not detected EKG: Atrial fibrillation at [address] T changes, QTC 417 Chest x-ray: There is consolidation and pleural fluids and volume loss in the right hemithorax that has progressed compared to old exam and consistent with progression of tumor. Left side mild pulmonary interstitial edema slightly worse than old exam On admission patient received breathing treatment, aspirin, heparin drip and one-time dose of Solu-Medrol With database administration associate team consulted 10/19/2021 Yesterday after rounding patient coded and he underwent stress station per protocol and he had to be intubated and sent to the ICU. Today he still in the ICU under mechanical ventilation. With pulmonary/critical care team help with the vent management. Also he is started on levophed while metoprolol and IV Lasix was stopped After this station WBC jumped to 28 and came down to 17 today. Potassium back to normal today. Creatinine is trending up 1.2 up to 1.6. Remains on Eliquis and Pepcid. Cardiology and pulmonary service on the case 10/20/2021 Patient remains in the ICU intubated and on mechanical ventilation with pulmonary/critical care team on the case. This morning he was still on levophed at 0.08 and later on lowered to 0.01 mcg/kg/min. Vitals still showing tachycardia, tachypnea and stable blood pressure from yesterday. Creatinine 1.6 slightly trending up, while WBC is at 17-27K area at potassium improved. Chest x-ray: Distant right-sided volume loss with right-sided pleural/parenchymal opacities redemonstrated. Stable small to tiny left pleural effusion. No significant change from one day earlier He Is on Eliquis, Levophed per pulmonary and critical care team 10/21/2021 Patient remains in the ICU. His condition deteriorated despite medical treatment and followed closely by pulmonary/critical care team. Patient still hypotensive little bit and he is on sharp state. He is becoming feverish and hypothermic. He is tachypneic, still on mechanical ventilation Leukocytosis and elevated creatinine are worsening Pulmonary/critical care team have discussed the case with the family and son who are planning to make the patient comfort care only Objective - Vital Signs Vital signs: Vital Signs Temp 38.3 F L 10/21/21 19:00 Pulse 131 H 10/21/21 19:00 Resp 29 H 10/21/21 19:00 BP 99/89 10/21/21 19:00 Pulse Ox 93 L 10/21/21 19:00 Intake & Output 10/21/21 10/21/21 10/22/21 06:59 18:59 06:59 Intake Total 670.822 758.964 20 Output Total 345 415 0 Balance 325.822 343.964 20 Weight 77.4 kg 77.4 kg Intake: IV 180 220 20 Sodium Chloride 0.9% 1, 180 220 20 000 ml @ 20 mls/hr IV . Q24H [facility] Rx#:[id number] Intake, IV Titration 445.822 463.964 Amount Norepinephrine 8 mg In 246.775 263.964 Sodium Chloride 0.9% 250 ml @ 0.1 MCG/KG/MIN 15. 035 mls/hr IV .[id number] [facility] Rx#:[id number] propofoL 1,000 mg In 199.047 200 Empty Bag 1 bag @ Titrate IV .Q0M [facility] Rx#: [id number] Tube Feeding 45 45 Other 30 Output: Urine 345 385 0 Emesis 30 Other: Voiding Method Indwelling Catheter Indwelling Catheter ABP, PAP, CO, CI - Last Documented Arterial Blood Pressure 94/62 - Exam -GENERAL: The patient is intubated and sedated, not in any acute distress. Well developed, well nourished. HEENT: Pupils are round and equally reacting to light. EOMI. No scleral icterus. No conjunctival pallor. Normocephalic, atraumatic. No pharyngeal erythema. No thyromegaly. CARDIOVASCULAR: S1 and S2 present. No murmurs, rubs, or gallops. PULMONARY: Chest is clear to auscultation, no wheezing or crackles. ABDOMEN: Soft, nontender, nondistended, normoactive bowel sounds. No palpable organomegaly. MUSCULOSKELETAL: No joint swelling or deformity. EXTREMITIES: No cyanosis, clubbing, or pedal edema. NEUROLOGICAL: Gross neurological examination did not reveal any focal deficits. SKIN: No rashes. no petechiae. - Labs CBC & Chem 7: 10/21/21 04:43 10/21/21 04:43 Labs: Abnormal Lab Results - Last 24 Hours (Table) 10/20/21 10/21/21 10/21/21 Range/Units 19:51 00:19 04:43 WBC 32.2 H (3.8-10.6) k/uL RBC 3.41 L (4.30-5.90) m/uL Hgb 10.3 L (13.0-17.5) gm/dL Hct 32.8 L (39.0-53.0) % Neutrophils # (Manual) 17.30 H (1.3-7.7) k/uL Lymphocytes # (Manual) 13.85 H (1.0-4.8) k/uL Monocytes # (Manual) 1.29 H (0-1.0) k/uL Basophils # (Manual) 0.32 H (0-0.2) k/uL ABG pCO2 (35-45) mmHg ABG pO2 (83-108) mmHg ABG HCO3 (21-25) mmol/L ABG Total CO2 (19-24) mmol/L Chloride (98-107) mmol/L Carbon Dioxide (22-30) mmol/L BUN (9-20) mg/dL Creatinine (0.66-1.25) mg/dL Glucose (74-99) mg/dL POC Glucose (mg/dL) 107 H 105 H (75-99) mg/dL Calcium (8.4-10.2) mg/dL 10/21/21 10/21/21 10/21/21 Range/Units 04:43 06:08 11:27 WBC (3.8-10.6) k/uL RBC (4.30-5.90) m/uL Hgb (13.0-17.5) gm/dL Hct (39.0-53.0) % Neutrophils # (Manual) (1.3-7.7) k/uL Lymphocytes # (Manual) (1.0-4.8) k/uL Monocytes # (Manual) (0-1.0) k/uL Basophils # (Manual) (0-0.2) k/uL ABG pCO2 50 H (35-45) mmHg ABG pO2 77 L (83-108) mmHg ABG HCO3 34 H (21-25) mmol/L ABG Total CO2 36 H (19-24) mmol/L Chloride 96 L (98-107) mmol/L Carbon Dioxide 32 H (22-30) mmol/L BUN 64 H (9-20) mg/dL Creatinine 2.16 H (0.66-1.25) mg/dL Glucose 135 H (74-99) mg/dL POC Glucose (mg/dL) 163 H (75-99) mg/dL Calcium 7.6 L (8.4-10.2) mg/dL 10/21/21 Range/Units 18:01 WBC (3.8-10.6) k/uL RBC (4.30-5.90) m/uL Hgb (13.0-17.5) gm/dL Hct (39.0-53.0) % Neutrophils # (Manual) (1.3-7.7) k/uL Lymphocytes # (Manual) (1.0-4.8) k/uL Monocytes # (Manual) (0-1.0) k/uL Basophils # (Manual) (0-0.2) k/uL ABG pCO2 (35-45) mmHg ABG pO2 (83-108) mmHg ABG HCO3 (21-25) mmol/L ABG Total CO2 (19-24) mmol/L Chloride (98-107) mmol/L Carbon Dioxide (22-30) mmol/L BUN (9-20) mg/dL Creatinine (0.66-1.25) mg/dL Glucose (74-99) mg/dL POC Glucose (mg/dL) 168 H (75-99) mg/dL Calcium (8.4-10.2) mg/dL Microbiology - Last 24 Hours (Table) 10/18/21 17:42 Gram Stain - Final Sputum Sputum Culture - Final Assessment and Plan Assessment: Acute hypoxic respiratory failure status post intubation and mechanical ventilation. 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 ) with recent chest x-ray showed a progression of tumor on the right side Elevated troponin, rule out cardiac causes and non-STEMI Altered mental status, most likely metabolic encephalopathy Acute COPD exacerbation Severe hypomagnesemia Chronic atrial fibrillation chronic hypoxic respiratory failure on oxygen via nasal cannula at home History of coronary artery disease status post CABG Hypertension History of Covid infection earlier this year Chronic back pain status post surgery History of heart valve replacement Plan: This is a pleasant 86 years old male who presents with progressed right lung CANCER, AND non STEMI. Continue with heparin, aspirin, cardiology consult Continue with mechanical ventilation with pulmonary/critical team on the case with help with his management Discontinue metoprolol Oncology team on the case Patient condition over all the worse and family are planning to make the patient comfort care per pulmonary/critical care team nurse notes Labs and medication were reviewed.. Continue same treatment. Continue with symptomatic treatment. Resume home medication. Monitor lytes and vitals. DVT and GI prophylaxis. Further recommendations depends on the clinical course of the patient DVT prophylaxis: heparin GI Prophylaxis: Pepcid Prognosis is guarded
[2021-10-21] MEDS ORDERED: AMIODARONE 450 MG in DEXTROSE 5% IN WATER 250 ML IV SCH ×2 (22:00)
[2021-10-22 01:23] LABS: Glucose,Whole Blood 157 mg/dL (75-99)
[2021-10-22] MEDS: INSULIN ASPART (NovoLOG) 100 UNIT/ML VIAL SQ SCH ×3 (01:44→12:33)
[2021-10-22] MEDS: IPRATROPIUM-ALBUTEROL 3 ML NEB INHALATION SCH ×4 (03:50→16:09)
[2021-10-22] MEDS: NOREPINEPHRINE 8 MG in SODIUM CHLORIDE 0.9% 250 ML IV SCH (06:16)
[2021-10-22 06:33] LABS: Glucose,Whole Blood 150 mg/dL (75-99)
--- NOTE | 2021-10-22 06:57 | XR ---
"EXAMINATION TYPE: XR chest 1V portable DATE OF EXAM: 10/22/2021 CLINICAL HISTORY: Difficulty breathing progress study. TECHNIQUE: Single AP portable semiupright view of the chest is obtained. COMPARISON: Chest x-ray from one day earlier and older studies. FINDINGS: Slight advancement of endotracheal tube which is low-lying currently just above marilyn. Ad vise pulling back 2 to 3 cm to be in more ideal position. Stable left-sided subclavian central venous catheter. Interval removal of orogastric tube. Overlying sternal wires along with cardiac valve surgical change redemonstrated. Persistent backgroun d chronic emphysematous change with small to tiny left pleural effusion. Persistent right-sided volum e loss with mediastinal shift. Persistent opacity along the periphery consistent with known pleural t hickening. Persistent diffuse right lung opacity including more central basilar opacity consistent wi th known mass. Left lung remains clear. Osseous structures are intact. IMPRESSION: 1. Interval removal of orogastric tube. Slight advancement of endotracheal tube just above marilyn, ad vise pulling back 2 to 3 cm to be more ideal position. 2. Persistent right-sided volume loss with right-sided pleural/parenchymal opacities redemonstrated. Stable small to tiny left pleural effusion. No significant change from one day earlier. A Yellow level critical message alert has been initiated for Walter Lowe DO via the [employer] 36 0 | Critical Results System on 10/22/2021 6:55 AM. This message alert has been sent to Walter Lowe DO via the preferences provided by the clinician for the receipt of Radiology Critical Findings. Nm ssage ID [id number]."
[2021-10-22 07:02] VITALS: BP 93/69
[2021-10-22] MEDS: PANTOPRAZOLE 40 MG/10 ML VIAL IVP SCH (08:50)
[2021-10-22] MEDS: FAMOTIDINE 20 MG/2 ML VIAL IV SCH (08:50)
[2021-10-22] MEDS: CHLORHEXIDINE GLUCONATE 15 ML CUP MUCOUS MEM SCH (08:50)
[2021-10-22] MEDS: APIXABAN 2.5 MG TABLET PO SCH (08:52)
[2021-10-22] MEDS: POTASSIUM CHLORIDE ER 10 MEQ TAB.ER.PRT PO SCH (08:52)
[2021-10-22] MEDS: MAGNESIUM OXIDE 400 MG TAB PO SCH (08:52)
[2021-10-22 09:07] VITALS: TEMP 98.2
[2021-10-22] MEDS ORDERED: MORPHINE SULFATE 2 MG/ML SYRINGE IV PRN (09:07)
[2021-10-22] MEDS ORDERED: MORPHINE SULFATE 4 MG/ML SYRINGE IV PRN (09:07)
[2021-10-22] MEDS ORDERED: ATROPINE OPHTH SOLN 1% 5ML BTL SUBLINGUAL PRN (09:07)
[2021-10-22] MEDS ORDERED: MORPHINE SULFATE (100 MG/2 ML) 100 MG in SODIUM CHLORIDE 0.9% 100 ML IV SCH (09:15)
[2021-10-22] MEDS ORDERED: SCOPOLAMINE 1.5MG/72HR PATCH TRANSDERM SCH (09:15)
[2021-10-22 12:30] VITALS: PULSE 0; RESP 0
[2021-10-22] MEDS: SODIUM CHLORIDE 0.9% 1,000 ML IV SCH (12:33)
--- NOTE | 2021-10-22 12:38 | P.PN ---
Subjective Progress Note Date: 10/22/21 86-year-old white male patient follows with Dr. 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 Patient presented to the hospital on 10/17/2021 for evaluation of shortness of breath that had worsened over last 2 days. No history of any fever. No complaints of chest pain or palpitations. Most recently patient has been wearing 4 L of oxygen on a regular basis, he is currently up to 5 L in the emergency department, and COVID 19 PCR was negative. Chest x-ray showed consolidation and pleural fluid and volume loss in the right hemithorax that has progressed compared to his old exam from April 2021 and was consistent with progression of tumor. There is left- sided mild pulmonary interstitial edema slightly worse than old exam. Today's labs have been reviewed showing white blood cell count of 10.9, hemoglobin 10.1, INR of 1.1, sodium is 138, potassium is 4.6, chloride is 89, CO2 is 38, BUN is 41, creatinine is 1.25, lactic acid is 2.4, magnesium was 0.6, calcium 7.5, troponins were elevated at 0.250, 0.204, and 0.247. ProBNP was elevated at 17,500. [place] of the chest has been obtained and showed no sizable pleural effusion on either side. His EKG showed atrial fibrillation with evidence of septal infarct of undetermined age. Patient has been started on IV Lasix in the emergency department, nebulized bronchodilators, he was cleared dose of IV methylprednisolone and this consult was initiated. Progress note dated 10/19/2021. 86-year-old male with history of non-small cell lung cancer involving the right lung, and chronic hypoxemic respiratory failure. The patient was seen yesterday in the emergency department. Unfortunately, the patient sustained a respiratory arrest on there, and was resuscitated. The patient is now in the intensive care unit. He was intubated on October 18, after cardiopulmonary resuscitation. He remains on the ventilator, on the volume assist control mode, rate of 18, tidal volume 400, FiO2 40%, and PEEP of 5. Arterial blood gases done on the same settings, except for 60%, show a PaO2 of 200, pCO2 47, and a pH is 7.52. The patient is also on saline at KVO, propofol, which is currently on hold for a daily interruption of sedation, and norepinephrine at 6 mcg/m. We placed a central line in the patient today. The patient is now a DO NOT RESUSCITATE. White count 17.4, hemoglobin 9.3, hematocrit 28.6, and platelet count 327,000. Sodium 135, potassium 4.1, chlorides 94, CO2 34, anion gap 7, BUN 50, and creatinine 1.65. Chest x-ray shows significant volume loss on the right hemithorax, with significant pleural parenchymal abnormalities. Progress note dated 10/20/2021. 86-year-old male with a history of non-small cell lung cancer, involving the right lung, and chronic hypoxemic respiratory failure. The patient had a respiratory arrest in the emergency room, and was resuscitated. He was transferred to the intensive care unit, and is currently in room 261. He remains on the mechanical ventilator. He is on the volume assist control mode, rate 18, tidal volume 400, FiO2 30%, and PEEP of 5. Blood gases show pO2 73, pCO2 47, and pH is 7.5. The patient is on propofol at 40 mcg/kg/m, norepinephrine at 5 mcg/m, saline at 20 mL an hour, and vital AF at 40 mL an hour, and a goal of 45. The patient will have a daily interruption of sedation today, and a spontaneous breathing trial on pressure support of 5 and CPAP of 5. White count 27,000, hemoglobin 9.6, hematocrit 29.5, and platelet count 389,000. Sodium 136, potassium 4, chlorides 95, CO2 32, anion gap 9, BUN 56, creatinine 1.67. Chest x-ray is essentially unchanged and shows persistent right-sided volume loss, with significant pleural parenchymal opacities. No significant effusion was noted on ultrasound. Progress note dated 10/21/2021. 86-year-old male with a history of non-small cell lung cancer, involving the right lung, and chronic hypoxemic respiratory failure. The patient had a respiratory arrest in the emergency department, and was resuscitated. He was transferred to the intensive care unit, and is currently in room 261. The patient remains on the mechanical ventilator. He is on the volume assist control mode, rate 18, tidal volume 400, FiO2 30%, and PEEP of 5. Blood gases show a PaO2 of 77, pCO2 of 50, and pH is 7.45. The patient's on saline at 20 mL an hour, propofol at 40 mcg/kg/m, and norepinephrine at 12 mcg/m. The patient's getting vital AF at 45 mL an hour, which is goal. Yesterday, the patient a spontaneous breathing trial but did very poorly. This is after a daily interruption of sedation. White count 32.2, hemoglobin 10.3, hematocrit 32.8, with a normal platelet count. Sodium 137, potassium 4.2, chlorides 96, and CO2 32. Anion gap is 9. BUN 64, creatinine 2.16. Chest x-ray shows persistent right-sided volume loss, with right-sided pleural parenchymal opacities. There is a small left pleural effusion. He is seen today 10/22/2021 in follow-up in the intensive care unit. He remains intubated and on mechanical ventilator. Current settings assist-control at a rate of 18, tidal volume 400, FiO2 30% and a PEEP of 5. No blood gases were drawn this morning. He remains sedated on propofol at 40 mcg/kg/m. Norepinephrine at 17 mcg/m. 0.9 normal saline at 20 and also per hour. Amiodarone drip at 0.5 mg/m. No tube feedings currently. X-ray shows interval removal of the orogastric tube. Slight advancement endotracheal tube just above the marilyn. Persistent right-sided volume loss right sided pleural/parenchymal opacities redemonstrated. Small tiny left pleural effusion. No significant change compared to previous. He is continued on DuoNeb inhalations, anticoagulated with Eliquis. Objective - Vital Signs Vital signs: Vital Signs Temp 98.2 F 10/22/21 09:00 Pulse 109 H 10/22/21 11:00 Resp 18 10/22/21 11:00 BP 93/69 10/22/21 07:00 Pulse Ox 94 L 10/22/21 11:00 Intake & Output 10/21/21 10/22/21 10/22/21 18:59 06:59 18:59 Intake Total 758.964 772.430 218.777 Output Total 415 205 75 Balance 343.964 567.430 143.777 Weight 77.4 kg 75.8 kg Intake: IV 220 240 100 Sodium Chloride 0.9% 1, 220 240 100 000 ml @ 20 mls/hr IV . Q24H [facility] Rx#:[id number] Intake, IV Titration 463.964 532.430 118.777 Amount Norepinephrine 8 mg In 263.964 341.996 118.777 Sodium Chloride 0.9% 250 ml @ 0.1 MCG/KG/MIN 15. 035 mls/hr IV .[id number] [facility] Rx#:[id number] propofoL 1,000 mg In 200 190.434 Empty Bag 1 bag @ Titrate IV .Q0M [facility] Rx#: [id number] Tube Feeding 45 Other 30 Output: Urine 385 205 75 Emesis 30 Other: Voiding Method Indwelling Catheter Indwelling Catheter Indwelling Catheter ABP, PAP, CO, CI - Last Documented Arterial Blood Pressure 110/66 - Exam GENERAL EXAM: Intubated, sedated 86-year-old gentleman, comfortable in no apparent distress. HEAD: Normocephalic. EYES: Normal reaction of pupils, equal size. NOSE: Clear with pink turbinates. THROAT: Oral endotracheal tube secured in place No erythema or exudates. NECK: No masses, no JVD. CHEST: No chest wall deformity. LUNGS: Equal air entry with bilateral bases. CVS: S1 and S2 normal with no audible murmur, regular rhythm. ABDOMEN: No hepatosplenomegaly, normal bowel sounds, no guarding or rigidity. SPINE: No scoliosis or deformity SKIN: No rashes CENTRAL NERVOUS SYSTEM: No focal deficits, tone is normal in all 4 extremities. EXTREMITIES: There is no peripheral edema. No clubbing, no cyanosis. Peripheral pulses are intact. - Labs CBC & Chem 7: 10/21/21 04:43 10/21/21 04:43 Labs: Abnormal Lab Results - Last 24 Hours (Table) 10/21/21 10/22/21 10/22/21 Range/Units 18:01 01:22 06:31 POC Glucose (mg/dL) 168 H 157 H 150 H (75-99) mg/dL Microbiology - Last 24 Hours (Table) 10/18/21 17:42 Gram Stain - Final Sputum Sputum Culture - Final Assessment and Plan Assessment: 1 Acute on chronic hypoxemic respiratory failure, multifactorial, secondary to lung cancer progression, COPD exacerbation, diastolic congestive heart failure a nd status post respiratory arrest on October 18 requiring intubation mechanical ventilation. 2 History of non-small cell lung cancer, right lung, diagnosed in 2017, status post radiation treatment at [facility] 3 Rule out non-ST segment elevation myocardial infarction 4 History of chronic atrial fibrillation anticoagulated with Eliquis 5 History of diastolic congestive heart failure 6 Status post aortic valve replacement 7 Coronary artery disease with previous coronary bypass grafting A Prior tobacco dependence Plan Chronic hypoxic respiratory failure 10 Radiation fibrosis, right lung Care time 36 minutes Plan: The patient was seen and evaluated by Dr. Lowe. He had spoken with the patient's children yesterday. They are here today and are considering comfort care. If so we'll proceed with comfort care orders. Until then we will continue full supportive care. He does remain a DO NOT RESUSCITATE CODE STATUS I, the cosigning physician, performed a history and physical examination the patient. Lungs sounds with bilateral crackles and scattered rhonchi. Maint aining O2 saturations in the 90s on 30% FiO2 via the mechanical ventilator.
--- NOTE | 2021-10-22 22:07 | P.DS ---
Providers Date of admission: 10/17/21 20:09 Attending physician: Fern Leonard Consults: 10/17/21 20:09 Consult Physician Routine Consulting Provider: [facility] Consult Reason/Comments: N STEMI Do you want consulting provider notified?: Yes 10/18/21 08:13 Consult Physician Routine Consulting Provider: Dionisio Reynaga Consult Reason/Comments: lung ca Do you want consulting provider notified?: Yes Consult Physician Urgent Consulting Provider: Walter Lowe Consult Reason/Comments: hypoxia, known to your service Do you want consulting provider notified?: Yes Primary care physician: Jason Hidalgo [facility] Course: Diagnoses: Acute hypoxic respiratory failure status post intubation and mechanical ventilation. 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 ) with recent chest x-ray showed a progression of tumor on the right side Elevated troponin, rule out cardiac causes and non-STEMI Altered mental status, most likely metabolic encephalopathy Acute COPD exacerbation Severe hypomagnesemia Chronic atrial fibrillation chronic hypoxic respiratory failure on oxygen via nasal cannula at home History of coronary artery disease status post CABG Hypertension History of Covid infection earlier this year Chronic back pain status post surgery History of heart valve replacement Hospital course: This is a pleasant 86 years old male with past medical history of Coronary Artery Disease s/p Coronary Bypass/CABG, COPD, Hypertension, covid 12/15/20, Back Surgery, Cardiac Valve Replacement, Non-small cell or right lung cancer diagnosed in 2017 status post radiation treatment through [facility] Patient looks tired lying in bed and looks floppy he is poor historian. He says he became because of difficulty breathing and shortness of breath which was going on for the last 3 months of is getting worse over the last 5-10 days. While he was in the emergency room being admitted to the hospital and has been evaluated by medical and pulmonary team patient coded and has to be intubated and transferred to the ICU. Patient was followed by pulmonary, cardiology and oncology service, he was placed on intubation and mechanical ventilation, he needed pressors to support his blood pressure. Despite treatment he did not improve and eventually patient today after family decided to make him comfort care My exam prior to expiration -GENERAL: The patient is intubated and sedated, not in any acute distress. Well developed, well nourished. HEENT: Pupils are round and equally reacting to light. EOMI. No scleral icterus. No conjunctival pallor. Normocephalic, atraumatic. No pharyngeal erythema. No thyromegaly. CARDIOVASCULAR: S1 and S2 present. No murmurs, rubs, or gallops. PULMONARY: Chest is clear to auscultation, no wheezing or crackles. ABDOMEN: Soft, nontender, nondistended, normoactive bowel sounds. No palpable organomegaly. MUSCULOSKELETAL: No joint swelling or deformity. EXTREMITIES: No cyanosis, clubbing, or pedal edema. NEUROLOGICAL: Gross neurological examination did not reveal any focal deficits. SKIN: No rashes. no petechiae. Patient Condition at Discharge: Critical Plan - Discharge Summary Discharge Rx Participant: No New Discharge Prescriptions: New Apixaban [Eliquis] 2.5 mg PO BID 30 Days #60 tablet No Action NIFEdipine [NIFEdipine ER] 30 mg PO DAILY Fluticasone/Vilanterol [Breo Ellipta 200-25 Mcg Inhaler] 1 puff INHALATION RT-DAILY Acetaminophen Tab [Tylenol] 1,000 mg PO Q4-6H PRN PRN Reason: Fever And/ Or Pain Albuterol Nebulized [Ventolin Nebulized] 2.5 mg PO Q4H PRN PRN Reason: Shortness Of Breath Atorvastatin [Lipitor] 10 mg PO HS Cholecalciferol [Vitamin D3 (25 Mcg = 1000 Iu)] 25 mcg PO DAILY Folic Acid 1 mg PO DAILY Furosemide [Lasix] 20 mg PO DAILY Magnesium Oxide 400 mg PO BID Pantoprazole [Protonix] 40 mg PO DAILY Metoprolol Tartrate [Lopressor] 25 mg PO BID Potassium Chloride ER [K-Dur 10] 10 meq PO DAILY Aspirin EC [Ecotrin Low Dose] 81 mg PO DAILY Discharge Medication List Aspirin EC [Ecotrin Low Dose] 81 mg PO DAILY 05/18/21 [History] Fluticasone/Vilanterol [Breo Ellipta 200-25 Mcg Inhaler] 1 puff INHALATION RT- DAILY 05/18/21 [History] Magnesium Oxide 400 mg PO BID 05/18/21 [History] Metoprolol Tartrate [Lopressor] 25 mg PO BID 05/18/21 [History] NIFEdipine [NIFEdipine ER] 30 mg PO DAILY 05/18/21 [History] Pantoprazole [Protonix] 40 mg PO DAILY 05/18/21 [History] Potassium Chloride ER [K-Dur 10] 10 meq PO DAILY 05/18/21 [History] Acetaminophen Tab [Tylenol] 1,000 mg PO Q4-6H PRN 10/17/21 [History] Albuterol Nebulized [Ventolin Nebulized] 2.5 mg PO Q4H PRN 10/17/21 [History] Atorvastatin [Lipitor] 10 mg PO HS 10/17/21 [History] Cholecalciferol [Vitamin D3 (25 Mcg = 1000 Iu)] 25 mcg PO DAILY 10/17/21 [History] Folic Acid 1 mg PO DAILY 10/17/21 [History] Furosemide [Lasix] 20 mg PO DAILY 10/17/21 [History] Apixaban [Eliquis] 2.5 mg PO BID 30 Days #60 tablet 10/18/21 [Rx] Follow up Appointment(s)/Referral(s): Jason Hidalgo MD [Primary Care Provider] - 1-[facility] days [facility] [NON-STAFF] - As Needed Activity/Diet/Wound Care/Special Instructions: Copay for Eliquis is $40 Discharge Disposition: - Preliminary Cause of Preliminary Cause of : lung cancer
== END 2021-10-22 16:10 | disposition expired | DRG 208 ==
LOC: EC 16:24 → 3SCARD 20:09 → 2SICU 10-18 15:38
PROVIDERS: ADMIT Hospitalist; ATTEND Hospitalist
PROC: 0BH17EZ Insertion of Endotracheal Airway into Trachea, Via Natural or Artificial Opening (ICD-10-PCS; principal; 2021-10-18)
PROC: 5A1945Z Respiratory Ventilation, 24-96 Consecutive Hours (ICD-10-PCS; principal; 2021-10-18)
PROC: 3E043XZ Introduction of Vasopressor into Central Vein, Percutaneous Approach (ICD-10-PCS; 2021-10-18)
PROC: 02HV33Z Insertion of Infusion Device into Superior Vena Cava, Percutaneous Approach (ICD-10-PCS; 2021-10-19)
PROC: 3E0G76Z Introduction of Nutritional Substance into Upper GI, Via Natural or Artificial Opening (ICD-10-PCS; 2021-10-20)
PROC: 0DH67UZ Insertion of Feeding Device into Stomach, Via Natural or Artificial Opening (ICD-10-PCS; 2021-10-20)
DX: C34.91 Malignant neoplasm of unspecified part of right bronchus or lung (principal); I21.4 Non-ST elevation (NSTEMI) myocardial infarction; J96.21 Acute and chronic respiratory failure with hypoxia; I50.33 Acute on chronic diastolic (congestive) heart failure; G93.41 Metabolic encephalopathy; I48.20 Chronic atrial fibrillation, unspecified; I48.3 Typical atrial flutter; J44.1 Chronic obstructive pulmonary disease with (acute) exacerbation; I47.2 Ventricular tachycardia; J70.1 Chronic and other pulmonary manifestations due to radiation; E83.42 Hypomagnesemia; I95.9 Hypotension, unspecified; I11.0 Hypertensive heart disease with heart failure; I25.10 Atherosclerotic heart disease of native coronary artery without angina pectoris; I25.2 Old myocardial infarction; I35.0 Nonrheumatic aortic (valve) stenosis; Z20.822 Contact with and (suspected) exposure to COVID-19; Z86.16 Personal history of COVID-19; I46.2 Cardiac arrest due to underlying cardiac condition; Z71.3 Dietary counseling and surveillance; Z95.3 Presence of xenogenic heart valve; Z51.5 Encounter for palliative care; Z66 Do not resuscitate; Z99.81 Dependence on supplemental oxygen; Y84.2 Radiological procedure and radiotherapy as the cause of abnormal reaction of the patient, or of later complication, without mention of misadventure at the time of the procedure; I49.3 Ventricular premature depolarization; Z87.891 Personal history of nicotine dependence; R41.3 Other amnesia; D72.829 Elevated white blood cell count, unspecified; F41.9 Anxiety disorder, unspecified; M54.9 Dorsalgia, unspecified; G89.29 Other chronic pain; Z98.42 Cataract extraction status, left eye; Z98.41 Cataract extraction status, right eye; Z98.890 Other specified postprocedural states; Z79.82 Long term (current) use of aspirin; Z79.899 Other long term (current) drug therapy; Z92.3 Personal history of irradiation; Z95.1 Presence of aortocoronary bypass graft
CPT/HCPCS: 36415; 36600; 71045; 76604; 80048; 80053; 80076; 82805; 83605; 83735; 83880; 84100; 84132; 84145; 84484; 85025; 85027; 85610; 85730; 87070; 87205; 87635; 92950; 93005; 93306; 94003; 94640; 96361; 96374; 99291